=== PATIENT | female | born 1940 | race Caucasian/White ===

== ENCOUNTER 2024-03-09 13:57 | Outpatient (REF) | payer BC, SELFPAY ==
[2024-03-09 17:11] LABS: Hematocrit 34.9 % (37.0-47.0); Hemoglobin 10.9 g/dl (12.0-16.0); Mean Corpuscular HGB Conc 31.2 g/dl (31.0-35.0); Mean Corpuscular Hemoglobin 27.4 pg (27.0-33.0); Mean Corpuscular Volume 87.7 fL (80.0-98.0); Mean Platelet Volume 10.5 fL (9.4-12.3); Platelet Count 225 X10*3/uL (160-400); Red Blood Count 3.98 X10*6/uL (4.20-5.50); Red Cell Distribution Width 16.1 % (11.0-16.0)
[2024-03-09 17:20] LABS: INTERNATIONAL NORM RATIO 0.9 (0.9-1.1); Prothrombin Time 11.3 SEC (11.1-13.3)
[2024-03-09 17:52] LABS: Alanine Aminotransferase 21 U/L (0-31); Albumin Level 4.1 g/dL (3.5-5.0); Alkaline Phosphatase 88 U/L (39-117); Anion Gap 15 (12-20); Aspartate Amino Transferase 26 U/L (5-31); Bilirubin Total 0.5 mg/dL (0.0-1.0); Blood Urea Nitrogen 19 mg/dL (9-16); Calcium 9.5 mg/dL (8.4-10.2); Carbon Dioxide 25 mmol/L (22-29); Chloride 105 mmol/L (96-108); Estimated Glomerular Filt Rate > 60; Glucose Random 110 mg/dL (60-115); Iron 62 mcg/dL (30-160); Percent Iron Saturation 21 % (15-50); Potassium 3.9 mmol/L (3.3-5.1); Sodium 141 mmol/L (135-145); Total Iron Binding Capacity 297 mcg/dL (228-428); Total Protein 7.6 g/dL (6.5-8.0); Unsaturated Iron Binding 235 ug/dL
[2024-03-09 18:06] LABS: Ferritin 122 ng/mL (10-250); TSH reflex Free T4 0.16 uIU/mL (0.32-4.0); Vitamin D 25-OH Total 56.4 ng/mL (>30)
[2024-03-09 18:14] LABS: Folate 7.2 ng/mL (> or = 4.0); Vitamin B12 282 pg/mL (200-900)
[2024-03-09 18:37] LABS: Free T4 (Free Thyroxine) 0.98 ng/dL (0.71-1.85)
[2024-03-10 05:07] LABS: Hepatitis A Antibody IgG Nonreactive (Nonreactive); ~Hepatitis A Antibody IgG 0.42 S/CO (0.00-0.99)
[2024-03-10 05:09] LABS: HBS Num1 0.78 mIU/mL (0-7.99); HBc Num1 0.12 S/CO (0.00-0.79); HBsAGNum1 0.36 S/CO (0.00-0.99); Hepatitis B Core Antibody Nonreactive (Nonreactive); Hepatitis B Surface Antigen Negative (Negative); ~HepC Num1 0.43 S/CO (0.00-0.79); ~Hepatitis B Surface Antibody NONREACTIVE (Nonreactive); ~Hepatitis C Antibody Nonreactive (Nonreactive)
[2024-03-10 12:53] LABS: Alpha 1 Anti-trypsin 138 mg/dL (83-199); Ceruloplasmin 30 mg/dL (14-48)
[2024-03-10 14:28] LABS: Immunoglobulin A 247 mg/dL (70-320); Immunoglobulin G 1353 mg/dL (600-1540)
[2024-03-10 22:29] LABS: Transglutaminase IgA <1.0 U/mL
[2024-03-14 04:44] LABS: Smooth Muscle Antibody <20 U (<20)
[2024-03-15 06:54] LABS: Mitochondrial Antibodies NEGATIVE (NEGATIVE)
== END 2024-03-09 13:58 | disposition home or self-care (01) ==
LOC: HO.LAB 13:57
PROVIDERS: PCP Internal Medicine; Visit Provider Internal Medicine
DX: K76.0 Fatty (change of) liver, not elsewhere classified (principal)
CPT/HCPCS: 36415; 80053; 82103; 82306; 82390; 82607; 82728; 82746; 82784; 83540; 84439; 84443; 85027; 85610; 86015; 86364; 86381; 86704; 86706; 86708; 86803; 87340

== ENCOUNTER 2024-03-09 13:57 | Outpatient (AMB) | payer BC, SELFPAY ==
--- NOTE | 2024-03-09 14:12 | A.OFFVIS_ITS ---
Vital Signs 03/09/24 14:22 Height 5 ft 5 in Weight 187 lb BMI 31.1 BP 115/58 L Blood Pressure Location Lt brachial Position Sitting Pulse 80 Intake Visit Reasons: PETERS, Cirrhosis Intake Note: patient new consult for PETERS, Cirrhosis. Patient cc: nauseas, abdominal bloating, occasional abdominal pain, reflex, between diarrhea and constipation, difficulty swallowing. Solar Installer Required: No Accompanied by: Son Allergies No Known Allergies Allergy (Verified 03/09/24 14:12) HPI Comments Details: 84 y.o F with PMH of fatty liver/PETERS thought to be secondary to tamoxifen initially and now likely from metabolic factors who is here for a second opinion on PETERS/cirrhosis. Reports has had lonstanding hx of fatty liver. Used to be under care of Dr Morley and then later Ramón Alvarez. More recently has been diagnosed with possible cirrhosis for which she is here to seek another opinion. Used to be on a good regimented high protein diet but around 6-8 months ago reports increased fatigue, lack of energy and interest in most of her daily activities. Slipped off the diet. Had sudden weight gain of almost 20 lbs in 2 months leading to poor DM control and possibly cirrhosis on imaging. With this, now more recently has also developed fatigue and increased overall body aches with low energy. Reports fullness in abd mike after any oral intake in 5-10 mins. With nausea. No burping or belching. BMs fluctuate between formed and diarrhea. No blood in stool. On pantoprazole 40 once daily. Also on duloxetine 20 for fibromyalgia - recently increased to 40. 03/2023: EGD esophageal ulcers 10/2023: liver with nodular contour Father: liver cancer. - unk cause. [facility] Social History (Updated 03/09/24 @ 14:19 by Lian Bellamy) Alcohol intake: never Patient Tobacco Use Status: Former Tobacco user Review of Systems Const All systems reviewed & are unremarkable except as noted in HPI and below Physical Exam Vital Signs: Last Vital Signs Pulse 80 03/09/24 14:22 BP 115/58 L 03/09/24 14:22 BMI result Body Mass Index 31.1 Gen Appear: NAD, undernourished HEENT: No scleral icterus, no bitemporal wasting noted CVS: Regular S1/S2 no murmurs Abd: soft, nontender, nondistended, no shifting dullness to percussion, bowel sounds active Ext: No peripheral edema bilaterally Neuro: A/Ox3, no asterixis Derm: No spider angioma Assessment & Plan Assessment & Plan (1) Fatty liver: Code(s): K76.0 - Fatty (change of) liver, not elsewhere classified Category: Medical (2) Dyspepsia: Code(s): R10.13 - Epigastric pain Category: Medical Plan Reviewed with the patient that appears to have had possible depressive episode over the last 6 months leading to changes in her diet and activity levels, leading to sudden weight gain as well as worsening diabetes. These factor may have collectively worsened her fatty liver. Based on the data available so far, difficult to say whether has cirrhosis versus advanced fibrosis at this time. Regardless, will not change the ongoing management, which is to prevent further progression of liver disease, as well as timely screening for complications from portal hypertension. 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 Is already on PPI, which was not been helpful so far. Patient is undergoing titration of duloxetine through her PCP. Suspect this may help her dyspeptic symptoms as well. If does not have much response over the next 6 weeks, can consider nortriptyline or desipramine at nighttime. TCAs may also improve fibromyalgia symptoms. Follow-up in 3 months to review results as well as response to duloxetine vs swtich to TCA Orders: Orders Complete Blood Count no Diff 03/09/24 K76.0 - Fatty (change of) liver, not elsewhere classified Comprehensive Met. Panel 03/09/24 K76.0 - Fatty (change of) liver, not elsewhere classified Ferritin 03/09/24 K76.0 - Fatty (change of) liver, not elsewhere classified IRON PROFILE 03/09/24 K76.0 - Fatty (change of) liver, not elsewhere classified Immunoglobulin A 03/09/24 K76.0 - Fatty (change of) liver, not elsewhere classified Immunoglobulin G 03/09/24 K76.0 - Fatty (change of) liver, not elsewhere classified Transglutaminase IgA 03/09/24 K76.0 - Fatty (change of) liver, not elsewhere classified Alpha 1 Anti-trypsin 03/09/24 K76.0 - Fatty (change of) liver, not elsewhere classified Hepatitis B Surface Antibody 03/09/24 K76.0 - Fatty (change of) liver, not elsewhere classified Vitamin B12 and Folate 03/09/24 K76.0 - Fatty (change of) liver, not elsewhere classified Vitamin D 25-OH Total 03/09/24 K76.0 - Fatty (change of) liver, not elsewhere classified TSH reflex Free T4 03/09/24 K76.0 - Fatty (change of) liver, not elsewhere classified Ceruloplasmin 03/09/24 K76.0 - Fatty (change of) liver, not elsewhere classified Prothrombin Time INR 03/09/24 K76.0 - Fatty (change of) liver, not elsewhere classified Smooth Muscle Antibody 03/09/24 K76.0 - Fatty (change of) liver, not elsewhere classified Mitochondrial Antibody 03/09/24 K76.0 - Fatty (change of) liver, not elsewhere classified Hepatitis A IgG 03/09/24 K76.0 - Fatty (change of) liver, not elsewhere classified Hepatitis B Core Antibody 03/09/24 K76.0 - Fatty (change of) liver, not elsewhere classified Hepatitis B Surface Antigen 03/09/24 K76.0 - Fatty (change of) liver, not elsewhere classified Hepatitis C Antibody 03/09/24 K76.0 - Fatty (change of) liver, not elsewhere classified Coding Level of Care Code New Pt Level 5 (88414) Diagnoses Fatty liver K76.0 Dyspepsia R10.13
[2024-03-09 14:22] VITALS: BP 115/58; PULSE 80; BMI 31.1
== END 2024-03-09 15:10 | disposition home or self-care (01) ==
PROVIDERS: PCP Internal Medicine; Visit Provider Internal Medicine
DX: K76.0 Fatty (change of) liver, not elsewhere classified (principal); R10.13 Epigastric pain
CPT/HCPCS: 99204

== ENCOUNTER → 2024-04-21 08:58 | Outpatient (BNV) | payer BC, SELFPAY | PROVIDERS: PCP Internal Medicine; Referring Provider Internal Medicine; Visit Provider Internal Medicine Medical Oncology | DX: D64.9 Anemia, unspecified (principal); D51.9 Vitamin B12 deficiency anemia, unspecified | CPT/HCPCS: 99213 ==

== ENCOUNTER 2024-07-15 15:04 | Outpatient (AMB) | payer BC, SELFPAY ==
--- NOTE | 2024-07-15 15:15 | A.OFFVIS_ITS ---
Vital Signs 07/15/24 15:16 Height 5 ft 6 in Weight 183 lb BMI 29.5 BP 128/68 Blood Pressure Location Lt brachial Position Sitting Pulse 70 Intake Visit Reasons: PETERS Intake Note: Patient follow up for PETERS Patient cc: nauseas, abdominal pain with the touch with bloating, swallowing problems, between diarrhea and constipation. Poor appetite due the food does not have any taste for her. Store Custodian Required: No Accompanied by: Son Allergies atorvastatin Allergy (Verified 07/15/24 15:15) Rash Penicillins Allergy (Verified 07/15/24 15:15) Rash Sulfa (Sulfonamide Antibiotics) Allergy (Verified 07/15/24 15:15) Difficulty Breathing gabapentin Adverse Reaction (Verified 07/15/24 15:15) Unknown HPI Comments Details: 84 y.o F with PMH of fatty liver/PETERS thought to be secondary to tamoxifen initially and now likely from metabolic factors who is here for a second opinion on PETERS/cirrhosis. Reports has had lonstanding hx of fatty liver. Used to be under care of Dr Morley and then later Ramón Alvarez. More recently has been diagnosed with possible cirrhosis for which she is here to seek another opinion. Used to be on a good regimented high protein diet but around 6-8 months ago reports increased fatigue, lack of energy and interest in most of her daily activities. Slipped off the diet. Had sudden weight gain of almost 20 lbs in 2 months leading to poor DM control and possibly cirrhosis on imaging. With this, now more recently has also developed fatigue and increased overall body aches with low energy. Reports fullness in abd mike after any oral intake in 5-10 mins. With nausea. No burping or belching. BMs fluctuate between formed and diarrhea. No blood in stool. On pantoprazole 40 once daily. Also on duloxetine 20 for fibromyalgia - recently increased to 40. 03/2023: EGD esophageal ulcers 10/2023: liver with nodular contour Father: liver cancer. - unk cause. 07/15/24: Here for follow up. Labs reviewed, neg for iron overload, autoimmune hepatitis, celiac. Reports continued disinterest and fatigue even to do daily tasks. PHQ-9 score is 19 in office today. PCP visit pending. In terms of GI sx, continues to have mid epigastric pain and fullness sensation. Worse on sitting down. Better on standing. Barium swallow records available now and note made of lower esophageal narrowing with 13 mm tablet not able to go through. Pt already amauri for EGD in 4 weeks. Today, pt also reports worsening R sided pain and tenderness, unable to lay on that side at night. Swelling like sensation in that area. In terms of non-iron deficiency anemia, seeing Hematology and started on B12 and folate supplementation. 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 Arthritis Fibromyalgia Family History Father Liver cancer Sister Skin cancer Social History Household Members: Spouse Alcohol intake: never Patient Tobacco Use Status: Never used Tobacco service: No Current occupational status: retired Review of Systems Const All systems reviewed & are unremarkable except as noted in HPI and below Physical Exam Vital Signs: Last Vital Signs Pulse 70 07/15/24 15:16 BP 128/68 07/15/24 15:16 BMI result Body Mass Index 29.5 No apparent distress Nonicteric Abdomen soft, mildly distended, diffuse tenderness mike RUQ Alert and oriented x3, normal gait Assessment & Plan Assessment & Plan (1) Fatty liver: Code(s): K76.0 - Fatty (change of) liver, not elsewhere classified Category: Medical (2) Epigastric pain: Code(s): R10.13 - Epigastric pain Category: Medical (3) Early satiety: Code(s): R68.81 - Early satiety Category: Medical (4) Esophageal stricture: Code(s): K22.2 - Esophageal obstruction Category: Medical (5) Postprandial RUQ pain: Code(s): R10.11 - Right upper quadrant pain Category: Medical Plan 1. Epigastric pain, early satiety, bloating Stricture also noted on barium swallow but pt without significant dysphagia bu rden. Ddx include esophagitis, gastritis, PUD, early gastric ca. Pt already booked for endoscopic evaluation in 4 weeks. In the meantime, would recommend empiric PPI. Pt reports prior intolerance to a PPI but does not recall name. Encouraged to call office if experiences side effects. Plan: -Start omeprazole 20 once daily -EGD already booked -Unable to rule out overlap of DGBI and pt again encouraged to discuss trial of TCA with PCP (currently on duloxetine) 2. RUQ pain Worse since she was seen last time. LFTs reviewed from last month and remain <3UNL. Plan: - US Abd Follow up after EGD Orders: Orders US abdomen complete 07/15/24 K76.0 - Fatty (change of) liver, not elsewhere classified Medications: New omeprazole 20 mg PO DAILY 90 days 90 caps 0RF Coding Level of Care Code Est Pt Level 4 (83098) Diagnoses Fatty liver K76.0 Epigastric pain R10.13 Early satiety R68.81 Esophageal stricture K22.2 Postprandial RUQ pain R10.11
[2024-07-15 15:16] VITALS: BP 128/68; PULSE 70; BMI 29.5
== END 2024-07-15 16:27 | disposition home or self-care (01) ==
PROVIDERS: PCP Internal Medicine; Visit Provider Internal Medicine
DX: K76.0 Fatty (change of) liver, not elsewhere classified (principal); R10.13 Epigastric pain; R68.81 Early satiety; K22.2 Esophageal obstruction; R10.11 Right upper quadrant pain
CPT/HCPCS: 99214

== ENCOUNTER 2024-08-09 09:03 | Outpatient (REF) | payer MEDICARE, SELFPAY ==
--- NOTE | ~2024-08-09 | US_ITS ---
EXAMINATION: US ABDOMEN COMPLETE CLINICAL INFORMATION: Fatty change of liver, not elsewhere specified. COMPARISON: None available. TECHNIQUE: Real-time imaging of the abdominal viscera. FINDINGS: PANCREAS: Visualized portions are unremarkable. ABDOMINAL AORTA: The proximal, mid, and distal segments are normal in caliber. INFERIOR VENA CAVA: Visualized portions are normal. LIVER: The liver is normal in size. The liver contour is normal. There is mildly diffuse increased liver parenchymal echogenicity, consistent with hepatic steatosis. There is a tiny oval hyperechoic mass in the right lobe measuring 1.1 x 1.3 x 1.3 cm, statistically most likely an incidental hemangioma. No suspicious focal hepatic lesion. There is no intrahepatic biliary duct dilatation seen. Normal hepatopedal portal flow. GALLBLADDER: Surgically absent. COMMON BILE DUCT: Normal in caliber measuring 0.4 cm in diameter. RIGHT KIDNEY: Mild fullness of the collecting system, nonspecific. No gross hydronephrosis. No renal calculi or focal parenchymal lesions. The kidney measures 10.9 cm in maximum dimension. LEFT KIDNEY: No hydronephrosis. No renal calculi or focal parenchymal lesions. The kidney measures 11.6 cm in maximum dimension. SPLEEN: The spleen measures 10.2 cm in maximum dimension. FREE FLUID: None. US/US abdomen complete IMPRESSION: 1. Mild diffuse fatty infiltration of the liver. No suspicious liver lesion. Incidental right hepatic lobe oval hemangioma suspected measuring 1.3 cm. 2. Cholecystectomy. No biliary dilatation. 3. Minimal fullness of the right renal collecting system without gross hydronephrosis. This is of doubtful clinical significance. No calculi or mass. 4. Remainder of the exam is normal. Electronically signed by: Levy Norris MD 08/10/2024 09:00 AM [facility]
== END 2024-08-09 09:04 | disposition home or self-care (01) ==
LOC: HO.US 09:03
PROVIDERS: PCP Internal Medicine; Visit Provider Internal Medicine
DX: K76.0 Fatty (change of) liver, not elsewhere classified (principal)
CPT/HCPCS: 76700

== ENCOUNTER → 2024-08-09 09:05 | Outpatient (BNV) | payer MEDICARE, SELFPAY | PROVIDERS: PCP Internal Medicine; Visit Provider Radiology Diagnostic Radiology | DX: K76.0 Fatty (change of) liver, not elsewhere classified (principal) | CPT/HCPCS: 76700 ==

== ENCOUNTER 2024-08-23 06:41 | Day surgery (SDC) | payer MEDICARE, SELFPAY ==
[2024-08-19 13:11] VITALS: BMI 29.5
--- NOTE | 2024-08-22 09:52 | HO.ANESPROP2 ---
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 If so, by whom?: No Are you DNR?: No Advance Directives: No Advance Directives Information Provided: Yes Recently lost weight without trying: No Nutrition Risks: No Nutritional Risk service: No Current occupational status: retired Meds Allergies Allergy/AdvReac Type Severity Reaction Status Date / Time atorvastatin Allergy Rash Verified 07/15/24 15:15 Penicillins Allergy Rash Verified 07/15/24 15:15 Sulfa (Sulfonamide Allergy Difficulty Verified 07/15/24 15:15 Antibiotics) Breathing gabapentin AdvReac Severe Unknown Verified 08/23/24 08:05 indomethacin AdvReac Unknown Verified 08/23/24 08:06 levofloxacin [From Levaquin] AdvReac Unknown Verified 08/23/24 08:04 Home Medications ?Medication ?Instructions ?Recorded ?Confirmed ?Last Taken ?Type allopurinol 100 mg tablet 100 mg PO DAILY 03/09/24 08/19/24 Unknown History atenolol 25 mg tablet 25 mg PO DAILY 03/09/24 08/19/24 Unknown History duloxetine 20 mg capsule,delayed 20 mg PO BID 03/09/24 08/19/24 Unknown History release levothyroxine 88 mcg capsule 88 mcg PO DAILY 03/09/24 08/19/24 Unknown History liothyronine 5 mcg tablet 5 mcg PO DAILY 03/09/24 08/19/24 Unknown History lisinopril 20 1 tab PO DAILY 03/09/24 08/19/24 Unknown History mg-hydrochlorothiazide 25 mg tablet metformin 500 mg tablet 500 mg PO DAILY 03/09/24 08/19/24 Unknown History rosuvastatin 5 mg tablet 5 mg PO DAILY 03/09/24 08/19/24 Unknown History zolpidem 5 mg sublingual tablet 5 mg sublingual BEDTIME 03/09/24 08/19/24 Unknown History ezetimibe 10 mg tablet 10 mg PO DAILY 04/21/24 08/19/24 Unknown History furosemide 20 mg tablet 20 mg PO DAILY swelling 04/21/24 08/19/24 Unknown History Exam Height,Weight and Vital Signs: Height 5 ft 6 in Weight 83.007 kg Pertinent Lab Results Pertinent Lab Results: Laboratory Tests 06/16/24 10:24 WBC 6.2 Hgb 11.4 L Hct 35.1 L Plt Count 232 Sodium 137 Potassium 4.0 Chloride 102 Carbon Dioxide 29 BUN 23 H Creatinine 0.88 Assessment and Plan Assessment Anesthesia Assessment: Chart Reviewed Documented by User: Cathy Corley MD 08/23/24 08:08 PMFSH Active Problems Active Problems: All Active Problems Postprandial RUQ pain (Acute) Esophageal stricture (Acute) Early satiety (Acute) Epigastric pain (Acute) Normochromic normocytic anemia (Acute) Normocytic anemia, not due to blood loss (Acute) Dyspepsia (Acute) Fatty liver (Acute) H/o breast cancer . 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 PONV) Social History Social History Household Members: Spouse Are you a primary respiratory care program director to a significant other at home: No Do you presently have visiting nurse or other home services: No Alcohol intake: never Patient Tobacco Use Status: Never used Tobacco Have you been hit, kicked, punched, or otherwise hurt by someone within the past year? If so, by whom?: No Are you DNR?: No Advance Directives: No Advance Directives Information Provided: Yes Recently lost weight without trying: No Nutrition Risks: No Nutritional Risk service: No Current occupational status: retired [employer] Allergies Allergy/AdvReac Type Severity Reaction Status Date / Time atorvastatin Allergy Rash Verified 07/15/24 15:15 Penicillins Allergy Rash Verified 07/15/24 15:15 Sulfa (Sulfonamide Allergy Difficulty Verified 07/15/24 15:15 Antibiotics) Breathing gabapentin AdvReac Severe Unknown Verified 08/23/24 08:05 indomethacin AdvReac Unknown Verified 08/23/24 08:06 levofloxacin [From Levaquin] AdvReac Unknown Verified 08/23/24 08:04 Home Medications ?Medication ?Instructions ?Recorded ?Confirmed ?Last Taken ?Type allopurinol 100 mg tablet 100 mg PO DAILY 03/09/24 08/19/24 Unknown History atenolol 25 mg tablet 25 mg PO DAILY 03/09/24 08/19/24 Unknown History duloxetine 20 mg capsule,delayed 20 mg PO BID 03/09/24 08/19/24 Unknown History release levothyroxine 88 mcg capsule 88 mcg PO DAILY 03/09/24 08/19/24 Unknown History liothyronine 5 mcg tablet 5 mcg PO DAILY 03/09/24 08/19/24 Unknown History lisinopril 20 1 tab PO DAILY 03/09/24 08/19/24 Unknown History mg-hydrochlorothiazide 25 mg tablet metformin 500 mg tablet 500 mg PO DAILY 03/09/24 08/19/24 Unknown History rosuvastatin 5 mg tablet 5 mg PO DAILY 03/09/24 08/19/24 Unknown History zolpidem 5 mg sublingual tablet 5 mg sublingual BEDTIME 03/09/24 08/19/24 Unknown History ezetimibe 10 mg tablet 10 mg PO DAILY 04/21/24 08/19/24 Unknown History furosemide 20 mg tablet 20 mg PO DAILY swelling 04/21/24 08/19/24 Unknown History Exam Height,Weight and Vital Signs: Height 5 ft 6 in Weight 83.007 kg Vital Signs Temp Pulse Resp BP Pulse Ox O2 Del Method 08/23/24 07:50 98.0 F 71 18 146/72 H 97 Room Air Pertinent Lab Results Pertinent Lab Results: Laboratory Tests 06/16/24 10:24 WBC 6.2 Hgb 11.4 L Hct 35.1 L Plt Count 232 Sodium 137 Potassium 4.0 Chloride 102 Carbon Dioxide 29 BUN 23 H Creatinine 0.88 Lab Results 08/23/24 Range/Units 07:46 POC Glucose 138 H (60-115) mg/dL Airway Mallampati Class: III TM Dist: >3cm Neck ROM: Full Partial: Upper Loose/Missing/Broken Teeth: Yes (Top front tooth left broken. Many missing teeth. Denies loose teeth) Heart: RRR + murmur Lungs: CTAB Assessment and Plan Assessment Anesthesia Assessment: Anesthesia Plan Discussed and Chart Reviewed Final Anesthetic Review Family History of Problems with Anesthesia: No History of Problems with Anesthesia: Yes (? PONV) NPO: Yes ASA Class: III Final Preanesthetic Review: No Changes in Pt Med Stat, Meds/Allgs Chart Reviewed, Consent Obtained/Reviewed and Anes Risks/Benef Reviewed Patient Risk: Intermediate Procedure Risk: Low Assessment/Block/Sedation in SS: Assess/Block/Sedation-SS Anesthetic Plan Anesthetic Plan: TIVA Disposition: Standard PACU
[2024-08-23] MEDS: Lactated Ringers 1,000 ML 100 ML IVCONT (07:40)
[2024-08-23 07:50] VITALS: BP 146/72; PULSE 71; RESP 18; TEMP 36.7; O2SAT 97
[2024-08-23 07:54] LABS: Glucose, Whole Blood 138 mg/dL (60-115)
--- NOTE | 2024-08-23 08:20 | MHC.SHP ---
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 Arthritis Fibromyalgia Family History Father Liver cancer Sister Skin cancer Present Medications: see Short Stay Collaborative assessment Allergies: Allergies Allergy/AdvReac Type Severity Reaction Status Date / Time atorvastatin Allergy Rash Verified 07/15/24 15:15 Penicillins Allergy Rash Verified 07/15/24 15:15 Sulfa (Sulfonamide Allergy Difficulty Verified 07/15/24 15:15 Antibiotics) Breathing gabapentin AdvReac Severe Unknown Verified 08/23/24 08:05 indomethacin AdvReac Unknown Verified 08/23/24 08:06 levofloxacin [From Levaquin] AdvReac Unknown Verified 08/23/24 08:04 Review of Systems Review of Systems Comment: Ten point ROS negative Exam Exam Comment: Gen appear: No acute distress HEENT: no icterus Chest: No overt resp distress Abd: soft, nontender, nondistended Psych: Stable affect, answering questions appropriately Neuro: A/Ox3 noted to move all extremities spontaneously Ext: no peripheral edema Plan Diagnosis/Plan: Unchanged I have reviewed the history and physical and performed a pertinent physical examination on my patient. No changes have occurred unless specified. Time Spent With Patient Time: Total time managing care of this patient today ____ minutes.
[2024-08-23 11:18] VITALS: BP 123/67; PULSE 67; RESP 18; TEMP 37.3; O2SAT 94
--- NOTE | 2024-08-23 11:25 | P.OP_ITS ---
Operative Note Operative Note Date of Service: 08/23/24 Narrative: Procedure: Esophagogastroduodenoscopy Endoscopist: Rand Beverly MD Indication: Epigastric pain Anesthesia Provider: Sandra Jovel CRNA Anesthesia Type: MAC ?? EGD Procedure:?? The procedure, indications, preparation and potential complications were reviewed with the patient, who indicated understanding and gave written informed consent to proceed. A physical exam was performed. The endoscope was introduced through the mouth, and advanced to the second part of duodenum. The mucosa was carefully examined on slow withdrawal of the endoscope. The patient tolerated the procedure well. There were no immediate complications.? ? EGD Findings:? * Esophagus:? Normal mucosa noted in the entire esophagus. No obvious narrowing was noted in the esophagus. The Z line was at 36 cm and displaced by a small hiatal hernia with the diaphragmatic pinch at 38 cm.. Middle and lower esophagus forceps biopsies were obtained to rule out eosinophilic esophagitis. * Stomach:? Erythema and erosions noted in the body and antrum. Retroflexion wa s performed in the cardia showing Hill grade 1 hiatal hernia. Cold forceps biopsies were taken as per Janine protocol for mapping. * Duodenum:?Diffuse erythema, ulceration erosion noted throughout duodenum to the extent examined. Cold forceps biopsies were taken for histology. ? EGD Impressions:? * Normal esophagus (biopsy) * Hiatal hernia * Gastritis (biopsy) * Duodenitis (biopsy) ?? Recommendations:?? * Follow biopsy results. Our office will call or send a letter with results within 7-10 days. * Switch to Rabeprazole 20 mg * If H pylori +, patient will be prescribed eradication therapy followed by test of cure. * Avoid NSAIDs. Above has been reviewed with the patient.
[2024-08-23 11:33] VITALS: BP 144/70; PULSE 66; RESP 18; TEMP 36.6; O2SAT 95
[2024-08-23 12:20] LABS: Alanine Aminotransferase 33 U/L (0-31); Alkaline Phosphatase 82 U/L (39-117); Aspartate Amino Transferase 44 U/L (5-31); Bilirubin Direct 0.2 mg/dL (0.0-0.5); Bilirubin Total 0.5 mg/dL (0.0-1.0); Total Protein 7.5 g/dL (6.5-8.0)
[2024-08-26 06:44] LABS: Gastrin 16 pg/mL (<=100)
== END 2024-08-23 12:06 | disposition home or self-care (01) ==
PROVIDERS: PCP Internal Medicine; Visit Provider Internal Medicine
PROC: 0DJ08ZZ Inspection of Upper Intestinal Tract, Via Natural or Artificial Opening Endoscopic (ICD-10-PCS; CPT 43235; principal; 2024-08-23 09:30)
DX: R10.13 Epigastric pain (principal); K29.90 Gastroduodenitis, unspecified, without bleeding; K21.9 Gastro-esophageal reflux disease without esophagitis; K75.81 Nonalcoholic steatohepatitis (NASH); K22.2 Esophageal obstruction; K44.9 Diaphragmatic hernia without obstruction or gangrene; R68.81 Early satiety; I10 Essential (primary) hypertension; E11.9 Type 2 diabetes mellitus without complications; E78.00 Pure hypercholesterolemia, unspecified; E07.9 Disorder of thyroid, unspecified; M79.7 Fibromyalgia; M10.9 Gout, unspecified; R53.83 Other fatigue; Z79.899 Other long term (current) drug therapy; Z88.0 Allergy status to penicillin; Z88.2 Allergy status to sulfonamides; Z88.8 Allergy status to other drugs, medicaments and biological substances
CPT/HCPCS: 43239; 36415; 80076; 82941; 82947; 88305; 88313; 88342; J1100; J2003; J2405; J2704; J3010

== ENCOUNTER → 2024-08-23 06:41 | Outpatient (BNV) | payer MEDICARE, SELFPAY | PROVIDERS: PCP Internal Medicine; Visit Provider Internal Medicine | DX: K29.70 Gastritis, unspecified, without bleeding (principal); K29.80 Duodenitis without bleeding | CPT/HCPCS: 43239 ==

== ENCOUNTER 2024-09-07 09:36 | Outpatient (AMB) | payer BC, SELFPAY ==
--- NOTE | 2024-09-07 09:37 | MHC.OFFVIS ---
Vital Signs 09/07/24 09:38 Height 5 ft 6 in Weight 182 lb 15.739 oz BMI 29.5 BP 145/67 H Blood Pressure Location Lt brachial Position Sitting Pulse 69 Intake Visit Reasons: S/P EGD w/ mapping biopsy; Dr. Beverly Intake Note: Kayy presents in the office as a follow up EGD w/ Mapping Biopsy. CC: She states that she is having trouble swallowing and lots of concerns. Parking Patroller Required: No Allergies atorvastatin Allergy (Verified 09/07/24 09:41) Rash Penicillins Allergy (Verified 09/07/24 09:41) Rash Sulfa (Sulfonamide Antibiotics) Allergy (Verified 09/07/24 09:41) Difficulty Breathing gabapentin Adverse Reaction (Severe, Verified 09/07/24 09:41) Unknown indomethacin Adverse Reaction (Verified 09/07/24 09:41) Unknown levofloxacin [From Levaquin] Adverse Reaction (Verified 09/07/24 09:41) Unknown HPI Comments Details: 84 y.o F with PMH of fatty liver/PETERS thought to be secondary to tamoxifen initially and now likely from metabolic factors who is here for a second opinion on PETERS/cirrhosis. Reports has had lonstanding hx of fatty liver. Used to be under care of Dr Morley and then later Ramón Alvarez. More recently has been diagnosed with possible cirrhosis for which she is here to seek another opinion. Used to be on a good regimented high protein diet but around 6-8 months ago reports increased fatigue, lack of energy and interest in most of her daily activities. Slipped off the diet. Had sudden weight gain of almost 20 lbs in 2 months leading to poor DM control and possibly cirrhosis on imaging. With this, now more recently has also developed fatigue and increased overall body aches with low energy. Reports fullness in abd mike after any oral intake in 5-10 mins. With nausea. No burping or belching. BMs fluctuate between formed and diarrhea. No blood in stool. On pantoprazole 40 once daily. Also on duloxetine 20 for fibromyalgia - recently increased to 40. 03/2023: EGD esophageal ulcers 10/2023: liver with nodular contour Father: liver cancer. - unk cause. 07/15/24: Here for follow up. Labs reviewed, neg for iron overload, autoimmune hepatitis, celiac. Reports continued disinterest and fatigue even to do daily tasks. PHQ-9 score is 19 in office today. PCP visit pending. In terms of GI sx, continues to have mid epigastric pain and fullness sensation. Worse on sitting down. Better on standing. Barium swallow records available now and note made of lower esophageal narrowing with 13 mm tablet not able to go through. Pt already amauri for EGD in 4 weeks. Today, pt also reports worsening R sided pain and tenderness, unable to lay on that side at night. Swelling like sensation in that area. In terms of non-iron deficiency anemia, seeing Hematology and started on B12 and folate supplementation. EGD 08/23/24: Normal esophagus (biopsy) Hiatal hernia Gastritis (biopsy) Duodenitis (biopsy)?? A. Duodenum, biopsy: Duodenal mucosa within normal limits. B. Stomach, antrum lesser curvature, biopsy: Antral-type mucosa with mild chronic inactive inflammation; no Helicobacter organisms seen. C. Stomach, antrum greater curvature, biopsy: Antral-type mucosa with mild chronic inactive inflammation; no Helicobacter organisms seen. D. Stomach, incisura, biopsy: Oxyntic mucosa with mild chronic inactive inflammation; no Helicobacter organisms seen. E. Stomach, body lesser curvature, biopsy: Oxyntic mucosa with mild chronic inactive inflammation; no Helicobacter organisms seen. F. Stomach, body greater curvature, biopsy: Oxyntic mucosa within normal limits; no Helicobacter organisms seen. G. Esophagus, lower, biopsy: Active esophagitis (maximum eosinophil count 2 per high powered field). H. Esophagus, middle, biopsy: Active esophagitis (maximum eosinophil count 5 per high powered field) 09/07/24: Here for post EGD follow up. Reports persistent abd pain and lack of appetite. Bx results reviewed with the pt. Reassured that no dysplasia noted in stomach bx. In addition no signs of portal HTN noted such as PHG or varices. Taking rabeprazole 20 but causing more nausea and vomiting by the late afternoon. Wanting to go back to omeprazole. 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 Arthritis Fibromyalgia Surgical History History of liver biopsy Hx of hysterectomy Hx of cholecystectomy Hx of colonoscopy History of lumpectomy of left breast History of esophagogastroduodenoscopy (EGD) Family History Father Liver cancer Sister Skin cancer Social History Household Members: Spouse Are you a primary direct care staffer to a significant other at home: No Do you presently have visiting nurse or other home services: No Alcohol intake: never Patient Tobacco Use Status: Never used Tobacco service: No Current occupational status: retired Review of Systems Const All systems reviewed & are unremarkable except as noted in HPI and below Physical Exam Vital Signs: Last Vital Signs Pulse 69 09/07/24 09:38 BP 145/67 H 09/07/24 09:38 BMI result Body Mass Index 29.5 No apparent distress Nonicteric Abdomen soft, nondistended Alert and oriented x3, normal gait Assessment & Plan Assessment & Plan (1) Gastritis and duodenitis: Code(s): K29.90 - Gastroduodenitis, unspecified, without bleeding Category: Medical (2) Postprandial RUQ pain: Code(s): R10.11 - Right upper quadrant pain Category: Medical (3) Epigastric pain: Code(s): R10.13 - Epigastric pain Category: Medical (4) Early satiety: Code(s): R68.81 - Early satiety Category: Medical Plan # Gastritis: # Dysphagia: Gastritis without H pylori. Having side effects from rabeprazole. OK to switch back to omeprazole but would recommend taking 20 BID. In terms of dysphagia, no obv stricture noted. ? EIM. Plan: - OMeprazole 20 BID - If having persistent dysphagia will repeat EGD with empiric dilation vs refer for HREM. #Dyspepsia Sx consistent with post prandial distress. Reviewed neuromodulation. While TCAs with more robust data, will favor mirtazapine for added benefit of increased appetite. Plan: - Mirtazapine 15 mg once daily at bedtime. Pt advised to start with 7.5 x 1 week and then increase to 15. - Avoid ambien for now. Can resume if has persistent insomnia despite being on mirtazapine for >2-3 weeks. Follow up 3 months Medications: New mirtazapine take 0.5 pill at bedtime for a week and then increase to 1 pill at bedtime. 15 mg PO BEDTIME 30 days 30 tabs 0RF Discontinued rabeprazole Discontinued Reason: Doctor's Order 20 mg PO DAILY 90 tabs 0RF K29.90 - Gastroduodenitis, unspecified, without bleeding Coding Level of Care Code Est Pt Level 4 (05423) Diagnoses Gastritis and duodenitis K29.90 Postprandial RUQ pain R10.11 Epigastric pain R10.13 Early satiety R68.81
[2024-09-07 09:38] VITALS: BP 145/67; PULSE 69; BMI 29.5
--- OUTSIDE RECORDS SUMMARY | 2024-09-07 10:51 | XMS_ITS | Encounter Summary ---
Author Organization [facility] Address [address] [place] [address] Care Team Providers Care First Helper Name Role Phone Alba Anguiano MD Primary Care Provider [phone] Encounter Details Date Type Department Care Team (Late st Contact Info) Description 09/02/2024 Telephone Gastroenterology - [place] [address] [place] [id number] Ramón Alvarez PA [address] [place] [address] Social History Tobacco Use Types Packs/Day Years Used Date Smoking Tobacco: Former Smokeless Tobacco: Never Alcohol Use Standard Drinks/Week Comments Never 0 (1 standard drink = 0.6 oz pur e alcohol) Comments Unknown Sex and Gender Information Value Date Recorded Sex Assigned at Not on file Legal Sex Female 8:06 AM EST Gender Identity Not on file Sexual Orientation Not on file documented as of this encounter Progress Notes * SARAHY Hardy - 09/02/2024 4:39 PM EST I have received an ultrasound elastography of liver report from [facility]. This study was doneon February 06, 2024 for reasons of cirrhosis. The impression was suggestive of compensated advanced chronic liver disease but need further testing for confirmation. Additional comment: In the setting of elevated liver functions vascular congestion and infiltrative liver disease the stage of liver fibrosis may be overestimated. Echogenic liver likely representing fatty liver but no suspicious lesions. Report to be scanned in the patient's chart the patient is aware that she needs to have repeated studies every 6 months due to her liver disease. documented in this encounter Plan of Treatment Not on file documented as of this encounter Visit Diagnoses Not on filedocumented in this encounter Care Teams First Helper Relationship Specialty Start Date End Date Alba Anguiano MD PCP - General Internal Medicine 11/05/21 documented as of this encounter
--- OUTSIDE RECORDS SUMMARY | 2024-09-07 10:51 | XMS_ITS | Continuity of Care Document ---
Author Organization [facility] Address [address] [place] [address]- Care Team Providers Care Press Tender Star Signal Name Role Phone Annmarie GERARD, Alba Bazzi Primary Care Physician Encounter [facility] [place] Date(s): 08/17/24 - 08/24/24 [facility] [address] [place], [place] [address] Encounter Diagnosis Dysuria(Discharge Diagnosis) - 08/17/24 Chills(Discharge Diagnosis) - 08/17/24 Back pain(Discharge Diagnosis) - 08/17/24 Attending Physician: Not on Staff, Attending MD Referring Physician: Jessenia Walton MD Encounter Type: Office Visit Allergies, Adverse Reactions, Alerts Substance Criticality Severity Reaction Reaction Severity Status erythromycin Active sulfADIAZINE swelling Active gabapentin DEPRESSION Active Levaquin Active Mushrooms Active penicillins rash Active Indocin dizziness nausea Active Lipitor rash Active Crestor Active Immunizations Given and Recorded Vaccine Date Status Refusal Reason nirsevimab (cvx 306) 05/06/23 Recorded Influenza Virus Vaccine (oldterm) 05/06/23 Recorde d Influenza Virus Vaccine (oldterm) 05/07/20 Recorde d Influenza Virus Vaccine (oldterm) 04/27/19 Recorde d pneumococcal 13-valent vaccine 03/16/23 Recorded pneumococcal 13-valent vaccine 03/27/20 Recorded pneumococcal 20-valent conjugate vaccine 03/16/23 Recorded influenza virus vaccine, inactivated 04/09/22 Best rded influenza virus vaccine, inactivated 04/15/21 Best rded influenza virus vaccine, inactivated 03/30/18 Best rded influenza virus vaccine, inactivated 04/11/17 Best rded influenza virus vaccine, inactivated 04/11/15 Best rded SARS-CoV-2 mRNA (vnamcqj-uawo-barea) vax 1 11/19/21 Given SARS-CoV-2 (COVID-19) mRNA BNT-162b2 vac 07/17/21 Given SARS-CoV-2 (COVID-19) mRNA BNT-162b2 vac 09/22/20 Recorded SARS-CoV-2 (COVID-19) mRNA BNT-162b2 vac 08/31/20 Recorded tetanus/diphtheria/pertussis, acel(Tdap) 03/27/20 Recorded pneumococcal 23-valent vaccine 07/24/09 Recorded 1Result Comment: [facility] [id number] Medications allopurinol 100 mg oral tablet 2, tablet, By Mouth, Daily, # 180 tablet, Refills 3, Tot. Refills 3, Maintenance, 12/28/24 11:34:00 AM EDT, Route to Pharmacy Electronically, [facility] #[id number], 163, cm, 11/16/23 9:25:00 EDT, Height Start Date: 12/28/24 Stop Date: 12/23/25 Status: Ordered Quantity: 180.0 Unit: tablet Repeat number: 4 atenolol 25 mg oral tablet 1, tablet, By Mouth, Daily, # 90 tablet, Refills 1, Tot. Refills 1, Maintenance, 07/04/24 10:34:00 AM EST, Route to Pharmacy Electronically, [facility] #[id number], 163, cm, 03/17/24 15:42:00 EDT,Height Start Date: 07/04/24 Status: Ordered Quantity: 90.0 Unit: tablet Repeat number: 2 B Complex 100 0 Refills, Maintenance, 08/17/24 1:01:00 PM EST, Partial fill upon patient request if the prescription is for a schedule II opioid drug. Start Date: 08/17/24 Status: Ordered Repeat number: 1 cinnamon = 1,000 mg, By Mouth, 0 Refills, Maintenance, 08/17/24 1:01:00 PM EST, Partial fill upon patient request if the prescription is for a schedule II opioid drug. Start Date: 08/17/24 Status: Ordered Repeat number: 1 Co Q-10 = 100 mg, By Mouth, Daily, 0 Refills, Maintenance, 09/08/17 9:48:27 AM EST Start Date: 09/08/17 Status: Ordered Repeat number: 1 Cranberry 0 Refills, Maintenance, 05/24/21 12:00:00 PM EDT, Partial fill upon patient request if the prescription is for a schedule II opioid drug. Start Date: 05/24/21 Status: Ordered Repeat number: 1 Crestor 5 mg oral tablet 1 tablet = 5 mg, By Mouth, Daily, 0 Refills, Maintenance, 09/23/21 7:53:00 AM EST, Partial fill uponpatient request if the prescription is for a schedule II opioid drug. Start Date: 09/23/21 Status: Ordered Repeat number: 1 Curcumin 750 mg Curcumin 750 mg, 2 times a day, Refills 0, Maintenance, 09/08/17 9:50:32 AM EST, Compound Start Date: 09/08/17 Status: Ordered Repeat number: 1 duloxetine 20 mg oral enteric coated capsule 2 capsule = 40 mg, By Mouth, Daily, # 180 capsule, 1 Refills, Maintenance, 05/18/24 5:16:00 AM EDT,[facility] #[id number], new instructions, 163, cm, 03/17/24 15:42:00 EDT, Height Start Date: 05/18/24 Status: Ordered Quantity: 180.0 Unit: capsule Repeat number: 2 ezetimibe 10 mg oral tablet TAKE 1 TABLET BY MOUTH DAILY Start Date: 03/17/24 Status: Ordered Repeat number: 1 Freestyle Lancets Maintenance, 08/17/16 10:16:19 AM EST, Compound Start Date: 08/17/16 Status: Ordered Repeat number: 1 furosemide 20 mg oral tablet 20 mg, 1, tablet, By Mouth, Daily, NEEDED FOR leg SWELLING, # 90 tablet, Refills 0, Tot. Refills0, Maintenance, 02/22/24 8:41:00 AM EDT, Route to Pharmacy Electronically, [facility] #[id number], Partial fill upon patient request if the prescription is for a schedule II opioid drug., 163, cm,02/22/24 7:49:00 EDT, Height Start Date: 02/22/24 Status: Ordered Quantity: 90.0 Unit: tablet Repeat number: 1 levothyroxine 0.088 mg oral tablet 1 tablet = 88 mcg, By Mouth, Daily, # 90 tablet, 3 Refills, Maintenance, 11/09/23 3:21:00 PM EDT, [facility] #[id number], 163, cm, 11/09/23 14:38:00 EDT, Height Start Date: 11/09/23 Status: Ordered Quantity: 90.0 Unit: tablet Repeat number: 4 liothyronine 5 mcg oral tablet 1 tablet = 5 mcg, By Mouth, Daily, # 90 tablet, 3 Refills, Maintenance, 11/09/23 3:21:00 PM EDT, Tablet, [facility] #[id number], 163, cm, 11/09/23 14:38:00 EDT, Height Start Date: 11/09/23 Status: Ordered Quantity: 90.0 Unit: tablet Repeat number: 4 MetFORMIN (Eqv-Glucophage XR) 500 mg oral tablet, extended release 1 tablet = 500 mg, By Mouth, 2 times a day, # 180 tablet, 3 Refills, 11/09/23 3:18:00 PM EDT, [facility] #[id number], new instructions, 163, cm, 11/09/23 14:38:00 EDT, Height Start Date: 11/09/23 Status: Ordered Quantity: 180.0 Unit: tablet Repeat number: 4 Neuro-Mag Neuro-Mag, Refills 0, Maintenance, 08/21/16 10:15:24 AM EST, Compound Start Date: 08/21/16 Status: Ordered Repeat number: 1 Nexium 40 mg oral enteric coated capsule 1 capsule = 40 mg, By Mouth, Daily, # 90 capsule, 0 Refills, Maintenance, 04/13/24 5:51:00 PM EDT, EC Capsule, [facility] #[id number], Partial fill upon patient request if the prescription is for a schedule II opioid drug., 163, cm, 03/17/24 15:42:00 EDT, Height Start Date: 04/13/24 Status: Ordered Quantity: 90.0 Unit: capsule Repeat number: 1 pantoprazole 40 mg oral delayed release tablet 1 tablet = 40 mg, By Mouth, Daily, take on empty stomach, # 90 tablet, 1 Refills, Maintenance, 11/10/23 7:59:00 AM EDT, EC Tablet, 163, cm, 11/09/23 14:38:00 EDT, Height Start Date: 11/10/23 Status: Ordered Quantity: 90.0 Unit: tablet Repeat number: 2 Vitamin D3 1000 intl units oral capsule 1 capsule = 1,000 International_Units, By Mouth, Daily, 0 Refills, Maintenance, 08/17/16 10:17:19 AMEST Start Date: 08/17/16 Status: Ordered Repeat number: 1 Zestoretic 25 mg-20 mg oral tablet 1 tablet, By Mouth, Daily, # 90 tablet, 0 Refills, Maintenance, 08/16/19 9:10:00 AM EST, Tablet Start Date: 08/16/19 Status: Ordered Quantity: 90.0 Unit: tablet Repeat number: 1 zolpidem 5 mg oral tablet See Instructions, PRN for sleep, 1- 2 tablet By Mouth Daily at bedtime, # 90 tablet, 1 Refills, Maintenance, 02/22/24 8:41:00 AM EDT, Tablet, [facility] #[id number], 163, cm, 02/22/24 7:49:00 EDT,Height Start Date: 02/22/24 Status: Ordered Quantity: 90.0 Unit: tablet Repeat number: 2 Indication: Insomnia, unspecified Problem List Condition Confirmation Course Effective Dates Status Health Status Informant Abdominal pain Confirmed Active Actinic keratosis Confirmed Active Aortic stenosis Confirmed Active Atopic dermatitis Confirmed Active Atrophic pancreas Confirmed Active Bilateral cataracts Confirmed Active Bilateral leg edema Confirmed Active Esophageal ulcer with bleeding Confirmed Active Breast cancer screening Confirmed Active Bladder infection, chronic Confirmed Active Stage 1 chronic kidney disease Confirmed Active 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 Active Cobalamin deficiency Confirmed Active Vaccine counseling Confirmed Active Pancreas cyst Confirmed Active Daytime somnolence Confirmed Active Decreased estrogen level Confirmed Active Degenerative joint disease involving multiple joints Confirmed Active Diastasis recti Confirmed Active Diastasis of rectus abdominis Confirmed Active Mild diastolic dysfunction Confirmed Active Dyslipidemia Confirmed Active Epigastric pain Confirmed Active Fatigue Confirmed Active Fibromyalgia Confirmed Active Fracture - foot, shoulder (L) Confirmed Active Gastritis Confirmed Active Gastroesophageal reflux disease without esophagitis Confirmed Active Gout Confirmed 2010 Active 4, para 3 Confirmed Active Heart murmur Confirmed Active History of malignant neoplasm of breast Confirmed Active History of COVID-19 Confirmed Active Hypercholesterolemia Confirmed Active Hypertension Confirmed Active Hypomagnesemia Confirmed Active Hypothyroidism Confirmed Active IBS - Irritable bowel syndrome Confirmed Active Dyspepsia Confirmed Active Hepatitis - non alcoholic Confirmed Active Insomnia Confirmed Active Pruritus Confirmed Active Knee pain Confirmed Active Lesion of lung Confirmed Active Hair loss Confirmed Active Depression, major Confirmed Active Menopause Confirmed Active Mild major depression, single episode Confirmed Active Moderate aortic insufficiency Confirmed Active Multiple joint pain Confirmed Active Multiple nodules of lung Confirmed Active Myalgia Confirmed Active Nausea Confirmed Active Neoplasm of uncertain behavior of skin Confirmed Active 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 Active Non-alcoholic fatty liver Confirmed Active PETERS (nonalcoholic steatohepatitis) Confirmed Active Obese class I Confirmed Active Obesity Confirmed Active Obstructive sleep apnea syndrome Confirmed Active Osteopenia Confirmed Active Healthcare maintenance Confirmed Active Advance care planning Confirmed Active Prerenal azotemia Confirmed Active Ptosis of both eyelids Confirmed Active Rosacea Confirmed Active Sjogren's syndrome - per eye dr and dentist Confirmed Active Esophageal stricture Confirmed Active Type 2 diabetes mellitus Confirmed Active Ulcer of esophagus without bleeding Confirmed Active Urge incontinence Confirmed Active Vaginal prolapse Confirmed Active Vitamin D deficiency Confirmed Active Diagnosis Diagnosis Type Effective Dates Health Status Clini billy Service Informant Dysuria Discharge Diagnosis 08/17/24 Chills Discharge Diagnosis 08/17/24 Back pain Discharge Diagnosis 08/17/24 Vital Signs Most recent to oldest [Reference Range]: 1 Height 163 cm (08/17/24 1:03 PM) Oxygen Saturation [94-100 %] 97 % (08/17/24 1:03 PM) Pulse Rate [55-90 bpm] 81 bpm (08/17/24 1:03 PM) Blood Pressure [90-138/55-84 mm Hg] 137/ 76mm Hg (08/17/24 1:03 PM) Respiratory Rate [16-30 br/min] 108 br/m in *H* (08/17/24 1:03 PM) Temperature [96.8-100.4 DegF] 98.8 DegF (08/17/24 1:03 PM) Mode of Delivery (Oxygen) Room air (08/17/24 1:03 PM) Blood pressure sites Arm, left (08/17/24 1:03 PM) Temperature Route Temporal (08/17/24 1:03 PM) Social History Social History Type Response Smoking Status Former smoker; Other : quit ; entered on: 08/17/16 Sex Sex Representation Female (finding) Note * Ismael Carrillo: PERFORM Event Display: Patient Education/Instruction Authored Date: [id number] Ambulatory Adult Visit Summary [facility] [address] [place] [address] Name: ELLIE MCKEE : 1940?? Visit: 08/17/2024 12:48?? Ambulatory Visit Instructions ?? Your Care Team Primary Care Provider Alba Anguiano MD? This Visit Provider [facility] Your Diagnosis UTI symptoms Dysuria Chills Back pain Vitals Signs Temperature: 98.8 DegF Height: 163 cm Pulse Rate: 81 bpm ?? Respiratory Rate:??108 br/min??High ?? Systolic Blood Pressure: 137 mm Hg ?? Diastolic Blood Pressure: 76 mm Hg ?? Oxygen Saturation: 97 % ?? What to do next Scheduled Follow-Up Appointments Thursday 9:00 AM EST ?? With: Alba Anguiano MD Where: [address] [place] [address]- Status: Pending Future Orders Complete Urinalysis/Reflex Culture (Urinalysis Reflex Culture) - Urine Clean Catch, Once, *Est. 08/27/23?? Urine Culture - Routine, Urine Clean Catch, Once, Collected, 08/17/24 13:15:00 EST, Order for Today, [facility], Urine Clean Catch?? Medications The list below reflects the information in our records and provided by you today along with any changes made during this visit. Please continue your medications until treatment is completed or stopped by your provider. If this is different from the information you have or there are other questions,please contact the prescribing provider. What How Much When Why Instructions Unchanged Allopurinol (allopurinol 100 mg oral tablet) 2 tab(s) Oral Daily Duration: 90 Days Unchanged Atenolol (atenolol 25 mg oral tablet) 1 tab(s) Oral Daily Unchanged Cholecalciferol (Vitamin D3 1000 intl units oral capsule) 1 capsule Oral Daily Unchanged cinnamon 1,000 Milligram Oral Unchanged Cranberry Unchanged Duloxetine (duloxetine 20 mg oral enteric coated capsule) 2 capsule Oral Daily Unchanged Durable Medical Equipment (Freestyle Lancets) Unchanged Esomeprazole (Nexium 40 mg oral enteric coated capsule) 1 capsule Oral Daily Unchanged Ezetimibe (ezetimibe 10 mg oral tablet) TAKE 1 TABLET BY MOUTH DAILY ?? Unchanged Furosemide (furosemide 20 mg oral tablet) 1 tab(s) Oral Daily NEEDED FOR leg SWELLING ?? Unchanged Hydrochlorothiazide-Lisinopril (Zestoretic 25 mg-20 mg oral tablet) 1 tab(s) Oral Daily Unchanged Levothyroxine (levothyroxine 0.088 mg oral tablet) 1 tab(s) Oral Daily Unchanged Liothyronine (liothyronine 5 mcg oral tablet) 1 tab(s) Oral Daily Unchanged Metformin (MetFORMIN (Eqv-Glucophage XR) 500 mg oral tablet, extended release) 1 tab(s) Oral Twice a day Unchanged Miscellaneous Rx (Curcumin 750 mg) Twice a day Unchanged Miscellaneous Rx (Neuro-Mag) Unchanged Multivitamin (B Complex 100) Unchanged Pantoprazole (pantoprazole 40 mg oral delayed release tablet) 1 tab(s) Oral Daily take on empty stomach ?? Unchanged Rosuvastatin (Crestor 5 mg oral tablet) 1 tab(s) Oral Daily Unchanged Ubiquinone (Co Q-10) 100 Milligram Oral Daily Unchanged Zolpidem (zolpidem 5 mg oral tablet) See instructions Insomnia 1- 2 ??tablet By Mouth Daily at bedtime, As needed for for sleep ?? Test Performed Below is a partial list of the tests performed during your Visit. You may have had other tests and procedures not included in this list. Please discuss all test results with your provider. POC UA ([facility]) Urine Culture?-- Results Pending -- Lab Test Results Below is a partial list of the most recent Laboratory test results done during your Visit. You may have had other tests and procedures not included in this list. Please discuss all test results with your provider. Test Name Test Result Date/Time POC UA Glucose NEGATIVE 08/17/2024 13:07 EST POC UA Bilirubin NEGATIVE 08/17/2024 13:07 EST POC UA Ketones NEGATIVE 08/17/2024 13:07 EST POC UA Specific [place] 1.020 08/17/2024 13:07 EST POC UA Blood 2+ 08/17/2024 13:07 EST POC UA PH 5.5 1 08/17/2024 13:07 EST POC UA Protein 1+ 08/17/2024 13:07 EST POC UA Urobilinogen 0.2 mg/dL 08/17/2024 13:07 EST POC UA Nitrite POSITIVE 08/17/2024 13:07 EST POC UA Leukocytes 2+ 08/17/2024 13:07 EST POC UA Color ORANGE 08/17/2024 13:07 EST POC UA Clarity CLOUDY 08/17/2024 13:07 EST Point of Care Results POC Urinalysis Automated-Org/CLIA: [facility])/[id number] (08/17/24) Medications and Immunizations Administered Medications Given During Visit No medications given during this visit.?? Allergies (NKA means No Known Allergies) Crestor Indocin??(dizziness, nausea) Levaquin Lipitor??(rash) Mushrooms erythromycin gabapentin??( DEPRESSION ) penicillins??(rash) sulfADIAZINE??(swelling) Common Emergency Awareness Tips IS IT A STROKE? Act FAST and Check for these signs: FACE Does the face look uneven? ARM Does one arm drift down? SPEECH Does their speech sound strange? TIME Call at any sign of stroke ?? Heart Attack Signs Chest discomfort: Most heart attacks involve discomfort in the center of the chest and lasts more than a few minutes, or goes away and comes back. It can feel like uncomfortable pressure, squeezing, fullness or pain. Discomfort in upper body: Symptoms can include pain or discomfort in one or both arms, back, neck, jaw or stomach. Shortness of breath: With or without discomfort. Other signs: Breaking out in a cold sweat, nausea, or lightheaded. Remember, MINUTES DO MATTER. If you experience any of these heart attack warning signs, call to get immediate medical attention! ?? Smoking can increase your chances of developing chronic health problems and can cause harmful effects to other family members in your house. If you smoke, you are strongly encouraged to quit. Please call [facility] at [phone] or [phone] ([phone]) or log in to [email or web address] for referrals to smoking cessation programs. ?? The National Suicide Prevention Hotline is available 16/02 if you or someone you know needs to find a reason to keep living. By calling 2-332-428-Strikingly (0264) you'll be connected to a skilled, trained counselor at a crisis center in your area. [facility] You can view and manage your care through the patient portal or by using a health care jackelyn of your choosing. [facility] is a website that allows you to securely view your medical information including your hospital discharge summary, office visit summaries, medications and follow-up visits. You can also request appointments, renew medications, and request access to your medical information using a health care jackelyn of your choosing, or just ask a question. You can enroll at [email or web address] or register during your next office visit. [facility], in keeping with [facility] guidance, no longer requires face masks for staff, patientsor visitors in most situations. Similiar to time spent indoors at other locations, there is the chance that you were exposed to repiratory viruses during your time with us (such as flu or COVID-19). If you develop symptoms concerning for a viral respiratory infection, please seek testing (and treatment if indicated) from your medical provider or home test kit. ?? Disclaimer: The information provided is of a general nature and is intended to be used in conjunction with the recommendations and advice of your health care practitioner. Every effort has been made to ensure that the information provided is accurate and complete at the time it is provided to you however, as your needs change, or, as new information becomes available, different or additional instructions may be required. ?? If you have questions, please consult with your primary care provider or pharmacist, as appropriate. This information is not intended to serve as substitution for assessment and evaluation by a qualified health care provider. If you do not have a primary care provider, you may find a [facility] provider by calling [facility] at [phone]. Patient Care team information Care Team Personnel Name: Alba Anguiano MD Position: [facility] Physician - Primary Care Member Role: PCP Address: [address] [place] [address], [address] [facility] [place] [place] [address] Telecom: Name: Elma Corrigan Position: [facility] Outreach Member Role: [employer] Consult[employer] Physician Name: Quiana Kuhn Position: [facility] Outreach Member Role: [employer] Consulting Physician Care Team Related Persons Name: BRIANA MCKEE Name: KRISTAL MCKEE Insurance Providers Guarantor name: ELLIE [facility] Information #: 1 Payer: [employer] Member Number: [id number] Policy Number: [employer]I Group Number: [id number] Health Plan Information #: 2 Payer: [employer] Member Number: [id number] Policy Number: NA Group Number: NA
--- OUTSIDE RECORDS SUMMARY | 2024-09-07 10:52 | XMS_ITS | Clinical Summary ---
Author Organization [facility] Address [address] [place] [address] Care Team Providers Care Front Desk Supervisor Name Role Phone Alba Anguiano MD Primary Care Provider Encounters Date Type Department Care Team Description 09/02/2024 Telephone Gastroenterology [facility] [address] [facility] [address] [place] [address] Ramón Alvarez PA 08/29/2024 Telephone Gastroenterology [facility] [address] [facility] [address] [place] [address] Ramón Alvarez PA from Last 3 Months Surgical History Surgery Date Site/Laterality Comments BREAST LUMPECTOMY 1998 PROCEDURE: HISTORICAL BREAST LUMPECTOMY HYSTERECTOMY PROCEDURE: CA VAGINAL HYSTERECTOMY UTERUS 250 GM/< CHOLECYSTECTOMY PROCEDURE: HISTORICAL CHOLECYSTECTOMY ESOPHAGOGASTRODUODENOSCOPY 03/26/2022 PROCEDURE: CA EGD TRANSORAL BIOPSY SINGLE/MULTIPLE; COMMENT: mild congestion, biopsy negative for H.pylori Medical History Medical History Date Comments DJD (degenerative joint disease) DX:DJD (degenerative joint disease) Depression DX:Depression Osteopenia DX:Osteopenia Type 2 diabetes mellitus wit hout complications (CMS/HCC) DX:Type 2 diabetes mellitus without complications (HCC) Urge incontinence DX:Urge incont inence Hypothyroidism DX:Hypothyroidis m History of breast cancer 1998 DX:Hist ory of breast cancer Fibromyalgia DX:Fibromyalgia PETERS (nonalcoholic steatohepatitis) DX:PETERS (nonalcoholic steatohepatitis) Irritable bowel syndrome DX:Irri table bowel syndrome Dysphagia DX:Dysphagia Pancreatic cyst DX:Pancreatic cy st Nausea DX:Nausea Abdominal pain DX:Abdominal regan n Diastasis recti DX:Diastasis rec ti Hiatal hernia DX:Hiatal hernia Esophageal ulcer DX:Esophageal u lcer Abdominal bloating DX:Abdominal bloating Cirrhosis of liver (CMS/HCC) DX: Cirrhosis of liver (HCC) Fatigue DX:Fatigue Bloating DX:Bloating Family History Medical History Relation Name Comments Colon cancer Father Hypertension Father Diabetes Mother Other: Other Mother Relation Name Status Comments Father Mother Social History Tobacco Use Types Packs/Day Years Used Date Smoking Tobacco: Former Smokeless Tobacco: Never Alcohol Use Standard Drinks/Week Comments Never 0 (1 standard drink = 0.6 oz pur e alcohol) Comments Unknown Sex and Gender Information Value Date Recorded Sex Assigned at Not on file Legal Sex Female 8:06 AM EST Gender Identity Not on file Sexual Orientation Not on file Obstetrics History Last Filed Vital Signs Vital Sign Reading Time Taken Comments Blood Pressure 126/62 12/14/2023 1:43 PM EDT Pulse 82 12/14/2023 1:43 PM EDT Temperature - - Respiratory Rate - - Oxygen Saturation - - Inhaled Oxygen Concentration - - Weight 88 kg (194 lb 1.6 oz) 12/14/2023 1:43 PM EDT Height 165.1 cm (5' 5 ) 12/14/2023 1:43 PM EDT Body Mass Index 32.3 12/14/2023 1:43 PM EDT Plan of Treatment Health Maintenance Due Date Last Done Comments Diabetes: Annual GFR (Glomer ular Filtration Rate) 1942 Diabetes: Annual Foot Exam 02/01/1952 Diabetes: Annual Retina Eye Exam 02/01/1952 DTaP,Tdap,and Td Vaccines (1 - Tdap) 1961 Hepatitis A Vaccines (1 of 2 - Risk 2-dose series) 1961 Pneumococcal Vaccine: 50+ Ye ars (1 of 2 - PCV) 1961 Zoster Vaccines (1 of 2) 02/01/1992 Hepatitis B Vaccines (1 of 3 - Risk 3-dose series) 2002 RSV Immunization Patients 60 + Years Old (1 - 1-dose 75+ series) 2017 Cholesterol Screening (Lipid Panel) 07/06/2022 Depression Screening 07/06/2022 Falls Risk Assessment 07/06/2022 Osteoporosis Screening (Bone Density Screening) 07/06/2022 Social Influencers of Health Screening 07/06/2022 Diabetes: Annual Urine Albumin-Creatinine Ratio (uACR) 07/12/2022 Diabetes: Blood Sugar Contro l Test (HGBA1C) 07/12/2022 COVID-19 Vaccine (2023-2 5 season) 2024 Influenza Vaccine (#1) 2024 HIB Vaccines Aged Out No longer eligi ble based on patient's age to complete this topic HPV Vaccines Aged Out No longer eligi ble based on patient's age to complete this topic IPV Vaccines Aged Out No longer eligi ble based on patient's age to complete this topic MMR Vaccines Aged Out No longer eligi ble based on patient's age to complete this topic Meningococcal ACWY Vaccine Aged Out N o longer eligible based on patient's age to complete this topic Meningococcal B Vacine Aged Out No lo nger eligible based on patient's age to complete this topic RSV Immunization Patients Un shiloh 20 months Aged Out No longer eligible b ased on patient's age to complete this topic Varicella Vaccines Aged Out No longer eligible based on patient's age to complete this topic Care Teams Front Desk Supervisor Relationship Specialty Start Date End Date Alba Anguiano MD PCP - General Internal Medicine 11/05/21
--- OUTSIDE RECORDS SUMMARY | 2024-09-07 10:52 | XMS_ITS | Encounter Summary ---
Author Organization [facility] Address [address] [place] [address] Care Team Providers Care Diagnostics Tech Name Role Phone Alba Anguiano MD Primary Care Provider [phone] Encounter Details Date Type Department Care Team (Late st Contact Info) Description 08/29/2024 Telephone Gastroenterology - [place] [address] [facility] [address] [place] [id number] Ramón Alvarez PA [address] [facility] [address] [place] [address] Social History Tobacco Use Types Packs/Day Years [...] as of this encounter Progress Notes * More Prieto MA - 09/02/2024 10:10 AM EST I have contacted patient and left vm to c/b. * SARAHY Hardy - 09/01/2024 4:56 PM EST A letter has been sent to her to remind her that she needs to repeat the ultrasound and should be done every 6 months due to the fact that she has cirrhosis. That she had her last ultrasound in January and she is due in July which would be past due. If she wants to have the ultrasound done at [facility] again, we can arrange to change the order to external order for [facility] but please let me know what she wants to do but she does have to have a repeat ultrasound every 6 months * More Prieto MA - 09/01/2024 3:59 PM EST [facility] has faxed the most recent US they had for patient and I have placed this in your binfor review. It is from 01/2024. Were you looking for something more recent? * More Prieto MA - 08/30/2024 11:11 AM EST Request Faxed to [facility] [phone]. * SARAHY Hardy - 08/29/2024 2:57 PM EST Could you obtain patient's last ultrasound that was performed at [facility] for cirrhosis. Thank you documented in this encounter Plan of Treatment Not on file documented as of this encounter Visit Diagnoses Not on filedocumented in this encounter Care Teams Diagnostics Tech Relationship Specialty Start Date End Date Alba Anguiano MD PCP - General Internal Medicine 11/05/21 documented as of this encounter
== END 2024-09-07 10:27 | disposition home or self-care (01) ==
PROVIDERS: PCP Internal Medicine; Visit Provider Internal Medicine
DX: K29.90 Gastroduodenitis, unspecified, without bleeding (principal); R10.11 Right upper quadrant pain; R10.13 Epigastric pain; R68.81 Early satiety
CPT/HCPCS: 99214

== ENCOUNTER → 2024-09-07 09:36 | Outpatient (BNVA) | payer BC, SELFPAY | PROVIDERS: PCP Internal Medicine; Visit Provider Internal Medicine ==

== ENCOUNTER 2024-12-07 08:39 | Outpatient (AMB) | payer BC, SELFPAY ==
[2024-12-07 08:44] VITALS: BP 130/60; PULSE 78; BMI 30.1
--- NOTE | 2024-12-07 08:44 | A.OFFVIS_ITS ---
Vital Signs 12/07/24 08:44 Height 5 ft 5 in Weight 180 lb 12.465 oz BMI 30.1 BP 130/60 Blood Pressure Location Lt brachial Position Sitting Pulse 78 Intake Visit Reasons: 3 mo f/u Intake Note: Kayy presents in the office as a 3 month follow up. CC: No new concerns - all the same concerns as last visit. Machine Or Machinery Mechanic Required: No Allergies atorvastatin Allergy (Verified 12/07/24 08:44) Rash Penicillins Allergy (Verified 12/07/24 08:44) Rash Sulfa (Sulfonamide Antibiotics) Allergy (Verified 12/07/24 08:44) Difficulty Breathing gabapentin Adverse Reaction (Severe, Verified 12/07/24 08:44) Unknown indomethacin Adverse Reaction (Verified 12/07/24 08:44) Unknown levofloxacin [From Levaquin] Adverse Reaction (Verified 12/07/24 08:44) Unknown HPI Comments Details: 84 y.o F with PMH of fatty liver/PETERS thought to be secondary to tamoxifen initially and now likely from metabolic factors who is here for a second opinion on PETERS/cirrhosis. Reports has had lonstanding hx of fatty liver. Used to be under care of Dr Morley and then later Ramón Alvarez. More recently has been diagnosed with possible cirrhosis for which she is here to seek another opinion. Used to be on a good regimented high protein diet but around 6-8 months ago reports increased fatigue, lack of energy and interest in most of her daily activities. Slipped off the diet. Had sudden weight gain of almost 20 lbs in 2 months leading to poor DM control and possibly cirrhosis on imaging. With this, now more recently has also developed fatigue and increased overall body aches with low energy. Reports fullness in abd mike after any oral intake in 5-10 mins. With nausea. No burping or belching. BMs fluctuate between formed and diarrhea. No blood in stool. On pantoprazole 40 once daily. Also on duloxetine 20 for fibromyalgia - recently increased to 40. 03/2023: EGD esophageal ulcers 10/2023: liver with nodular contour Father: liver cancer. - unk cause. 07/15/24: Here for follow up. Labs reviewed, neg for iron overload, autoimmune hepatitis, celiac. Reports continued disinterest and fatigue even to do daily tasks. PHQ-9 score is 19 in office today. PCP visit pending. In terms of GI sx, continues to have mid epigastric pain and fullness sensation. Worse on sitting down. Better on standing. Barium swallow records available now and note made of lower esophageal narrowing with 13 mm tablet not able to go through. Pt already amauri for EGD in 4 weeks. Today, pt also reports worsening R sided pain and tenderness, unable to lay on that side at night. Swelling like sensation in that area. In terms of non-iron deficiency anemia, seeing Hematology and started on B12 and folate supplementation. EGD 08/23/24: * Normal esophagus (biopsy) * Hiatal hernia * Gastritis (biopsy) * Duodenitis (biopsy)?? A. Duodenum, biopsy: Duodenal mucosa within normal limits. B. Stomach, antrum lesser curvature, biopsy: Antral-type mucosa with mild chronic inactive inflammation; no Helicobacter organisms seen. C. Stomach, antrum greater curvature, biopsy: Antral-type mucosa with mild chronic inactive inflammation; no Helicobacter organisms seen. D. Stomach, incisura, biopsy: Oxyntic mucosa with mild chronic inactive inflammation; no Helicobacter organisms seen. E. Stomach, body lesser curvature, biopsy: Oxyntic mucosa with mild chronic inactive inflammation; no Helicobacter organisms seen. F. Stomach, body greater curvature, biopsy: Oxyntic mucosa within normal limits; no Helicobacter organisms seen. G. Esophagus, lower, biopsy: Active esophagitis (maximum eosinophil count 2 per high powered field). H. Esophagus, middle, biopsy: Active esophagitis (maximum eosinophil count 5 per high powered field) 09/07/24: Here for post EGD follow up. Reports persistent abd pain and lack of appetite. Bx results reviewed with the pt. Reassured that no dysplasia noted in stomach bx. In addition no signs of portal HTN noted such as PHG or varices. Taking rabeprazole 20 but causing more nausea and vomiting by the late afternoon. Wanting to go back to omeprazole. 12/07/24: Routine 3m follow up. Reports side effects to mirtazipine - sleepy during daytime, mood changes, swelling in legs and hands. Stopped mirtazipine a month ago. Otherwise abd pain has been a lot better with omeprazole. Swallowing was better but recently had oral surgery with removal of teeth so still sore in mouth and sticking to liquids. Also reports leg soreness and pain bilaterally. Not in joints. Has varicose veins on exam. [facility] Medical History (Updated 12/07/24 @ 09:22 by Rand Beverly MD) Gout Thyroid disease High cholesterol High blood pressure Diabetes mellitus 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 Arthritis Fibromyalgia Surgical History (Updated 12/07/24 @ 08:47 by FATIMAH Olivo) Hx of wisdom tooth extraction History of liver biopsy Hx of hysterectomy Hx of cholecystectomy Hx of colonoscopy History of lumpectomy of left breast History of esophagogastroduodenoscopy (EGD) Family History Father Liver cancer Sister Skin cancer Social History Household Members: Spouse Are you a primary career technical education teacher to a significant other at home: No Do you presently have visiting nurse or other home services: No Alcohol intake: never Patient Tobacco Use Status: Never used Tobacco service: No Current occupational status: retired Review of Systems Const All systems reviewed & are unremarkable except as noted in HPI and below Physical Exam Vital Signs: Last Vital Signs Pulse 78 12/07/24 08:44 BP 130/60 12/07/24 08:44 BMI result Body Mass Index 30.1 No apparent distress Nonicteric Abdomen soft, nondistended Alert and oriented x3, normal gait Assessment & Plan Assessment & Plan (1) Gastritis and duodenitis: Code(s): K29.90 - Gastroduodenitis, unspecified, without bleeding Category: Medical (2) Postprandial RUQ pain: Code(s): R10.11 - Right upper quadrant pain Category: Medical (3) Epigastric pain: Code(s): R10.13 - Epigastric pain Category: Medical (4) Early satiety: Code(s): R68.81 - Early satiety Category: Medical Plan # Gastritis: # Dysphagia: Gastritis without H pylori. Has had good response to omeprazole BID. Have advised to cut this to once daily since has been on BID dosing x 12 weeks. Swallowing better, will book for repeat EGD with empiric dilation before referring to [facility]. Plan: - Decrease omeprazole 20 to once daily - Repeat EGD with empiric dilation - if no response to this, next step will be HREM #MAFLD/PETERS Likely has advanced fibrosis based on elastography 2023. No CSPH so far based on platelets and EGD findings. Plan: - US Abd due January 2025 # ??? panc cyst Pt reports being informed of a pancreatic cyst by Dr Morley many years ago however CT abd/pel reports reviewed from [id number] in [facility] EMR without any mention of pancreatic cyst. Plan: - pt/son will bring prev records for review. - discussed ordering MRI for January for hcc screening and panc cyst surveillance but pt would like to hold off for now until records are reviewed # Leg pain Likely 2/2 venous insufficiency and varicose veins. Plan: - VAscular surg referral requested Follow up after egd Orders: Orders US abdomen complete 2 Months K76.0 - Fatty (change of) liver, not elsewhere classified Referrals Vascular Surgery Referral I83.813 - Varicose veins of bilateral lower extremities with pain, I87.2 - Venous insufficiency (chronic) (peripheral) Coding Level of Care Code Est Pt Level 4 (58279) Diagnoses Gastritis and duodenitis K29.90 Postprandial RUQ pain R10.11 Epigastric pain R10.13 Early satiety R68.81
--- OUTSIDE RECORDS SUMMARY | 2024-12-07 08:55 | XMS_ITS | Clinical Summary ---
Author Organization [facility] it Address [address] [place] [address] Care Team Providers Care Dialysis Chief Equipment Technician Name Role Phone Alba Anguiano MD Primary Care Provider [phone] Encounters Date Type Department Care Team Description 10/18/2024 Telephone Gastroenterology - [place] [address] [facility] [address] [place] [address] Ramón Alvarez PA from Last 3 Months Surgical History Surgery Date Site/Laterality Comments BREAST LUMPECTOMY 1998 PROCEDURE: HISTORICAL BREAST LUMPECTOMY HYSTERECTOMY PROCEDURE: NM VAGINAL HYSTERECTOMY UTERUS 250 GM/< CHOLECYSTECTOMY PROCEDURE: HISTORICAL CHOLECYSTECTOMY ESOPHAGOGASTRODUODENOSCOPY 03/26/2022 PROCEDURE: NM EGD TRANSORAL BIOPSY SINGLE/MULTIPLE; COMMENT: mild congestion, biopsy negative for H.pylori Medical History Medical History Date Comments DJD (degenerative joint disease) DX:DJD (degenerative joint disease) Depression DX:Depression Osteopenia DX:Osteopenia Type 2 diabetes mellitus wit hout complications (CMS/HCC V24, CMS/HCC V28) DX:Type 2 teresa betes mellitus without complications (HCC) Urge incontinence DX:Urge [...] Abdominal bloating DX:Abdominal bloating Cirrhosis of liver (CMS/HCC V24, CMS/HCC V28) DX:Cirrhosis of liver (HCC) Fatigue DX:Fatigue Bloating DX:Bloating [...] - Risk 3-dose series) 2002 RSV Immunization Adult Patie nts (1 - 1-dose 75+ series) 2017 Cholesterol Screening (Lipid Panel) 07/06/2022 Depression Screening 07/06/2022 Falls Risk Assessment 07/06/2022 Osteoporosis Screening (Bone Density Screening) 07/06/2022 Social Influencers of Health Screening 07/06/2022 Diabetes: Annual Urine Albumin-Creatinine Ratio (uACR) 07/12/2022 Diabetes: Blood Sugar Contro l Test (HGBA1C) 07/12/2022 COVID-19 Vaccine (2023-2 5 season) 2024 Influenza Vaccine (Season Ended) 2025 HIB Vaccines Aged Out No longer eligi [...] age to complete this topic Meningococcal B Vaccine Aged Out No l onger eligible based on patient's age to complete this topic RSV Immunization Patients Un shiloh 20 months Aged Out No longer eligible b ased on patient's age to complete this topic Varicella Vaccines Aged Out No longer eligible based on patient's age to complete this topic Procedures Procedure Name Priority Date/Time Associated Diagnosis Comments US ABDOMEN LIMITED Routine 09/09/2024 8:32 AM EST from Last 3 Months Results * US Abdomen Limited (09/09/2024 8:32 AM EST) Anatomical Region Laterality Modality Body Ultrasound us Historical Provider MD [facility]KEON US PROCEDURES Final R esult from Last 3 Months Care Teams Dialysis Chief Equipment Technician Relationship Specialty Start Date End Date Alba Anguiano MD PCP - General Internal Medicine 11/05/21
== END 2024-12-07 09:51 | disposition home or self-care (01) ==
LOC: HO.HGI 08:40
PROVIDERS: PCP Internal Medicine; Visit Provider Internal Medicine
DX: K29.90 Gastroduodenitis, unspecified, without bleeding (principal); R10.11 Right upper quadrant pain; R10.13 Epigastric pain; R68.81 Early satiety
CPT/HCPCS: 99214

== ENCOUNTER 2024-12-13 11:10 | Outpatient (AMB) | payer BC, SELFPAY ==
--- NOTE | 2024-12-13 11:24 | A.OFFVIS_ITS ---
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 Pt states Right LE slightly worse than the Left LE. Hx of bilateral stripping in the . States she has hx of clots. Currently has burning, itching, swelling and sharp pains in her legs. 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 Complaints include pain from the groins to her toes, swelling of lower extremities, cramping, fatigue, tiredness, itchiness, and heaviness of the lower extremities. It has been affecting their daily activities including walking, standing, and physical activity. It is noted in both of her legs. She states this has been going on for appx 10-11y now but no doctor has wanted to address it. She does have a hx of vein stripping in the with Dr Kuo at [place] due to blood clots. She has not had any issues with blood clots since. She states the pain gets worse with any walking and usually stops when she stops walking. She states the pain is throbbing, all of the time. She is prescribed a diuretic, for which she takes when the swelling gets particularly bad. She is a nonsmoker. 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 Patient had vein stripping in bilateral GSVs in the . Patient denies any history of DVT/ PE. Patient denies any history of phlebitis. Trial of compression includes - elevation with little relief They now present for vascular evaluation regarding their varicose veins. 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 Arthritis Fibromyalgia Surgical History Hx of wisdom tooth extraction History of liver biopsy Hx of hysterectomy Hx of cholecystectomy Hx of colonoscopy History of lumpectomy of left breast History of esophagogastroduodenoscopy (EGD) Family History Father Liver cancer Sister Skin cancer Social History Household Members: Spouse Are you a primary care transition mgr to a significant other at home: No Do you presently have visiting nurse or other home services: No Alcohol intake: never Patient Tobacco Use Status: Never used Tobacco service: No Current occupational status: retired Review of Systems Const Reports as per HPI and Denies weakness ENT Reports Normal hearing present and Denies dizziness Card Reports as per HPI, Denies chest pain, Denies chest pain at rest, Denies chest pain with activity, Denies dyspnea and Denies dyspnea on exertion Resp Reports as per HPI, Denies cough, Denies dyspnea and Denies dyspnea on exertion GI Reports as per HPI, Denies abdominal pain, Denies nausea and Denies vomiting Musc Denies numbness Skin/Breast Reports as per HPI, Denies erythema and Denies wounds Neuro Reports Normal hearing present, Denies dizziness, Denies numbness, Denies Sensory deficit (Neuro) and Denies weakness Psych Reports no additional complaints Endo Reports no additional complaints Physical Exam Vital Signs: BMI result Body Mass Index 30.0 Const General: healthy appearing and no acute distress Orientation/consciousness: patient oriented x3 HEENT Head: Yes normal to inspection Ears: hearing grossly normal bilaterally Mouth: Normal oral and palatal mucosa present Resp Effort & Inspection: normal respiratory effort and able to speak in complete sentences Auscultation: clear to auscultation bilaterally Cardio Jugular venous distension: no JVD Rate: regular rate Rhythm: regular rhythm Heart sounds: S1 normal heart sound present and S2 normal heart sound present Bruits: no abdominal aortic bruits, no carotid bruits, no femoral bruits and no renal bruits Peripheral pulses: Peripheral pulses 2+ throughout GI Inspection: Yes normal to inspection Palpation (GI): No Abdominal aortic bruit present Skin General skin exam: no rashes or lesions noted Wounds: no wounds Hair: normal Neuro General: patient oriented x3 Cranial nerves: Yes Normal hearing present Cognition (Neuro): normal cognition Gait exam (Neuro): Normal gait present Motor exam (neuro): 5/5 motor strength present throughout Sensory Exam: No Sensory deficit (Neuro) Extrem Other: Bilateral lower extremities: +2 pitting edema noted. Discoloration noted around the ankles. Palpable, strong DP pulses. No wounds noted. CEAP: C - 4 E - primary A - superficial P - reflux General: Yes normal to inspection, Yes full ROM, Yes capillary refill normal and Yes normal gait Assessment & Plan Assessment & Plan (1) Varicose veins of bilateral lower extremities with pain: Code(s): I83.813 - Varicose veins of bilateral lower extremities with pain Category: Medical Plan: Kayy is presenting today as a referral from her Gastro for concerns of bilateral lower extremity swelling and pain >10y. I do believe she may have some lymphedema as well; but we would like to r/o any venous insufficiency first. In short, the patient has evidence of venous insufficiency. I have discussed the pathophysiology with the patient. In addition I have provided informational material regarding venous disease to the patient. We have discussed conservative measures including compression, elevation, and exercise. We were able to provide her with a couple of pairs of compression socks today. I have taken the liberty of ordering venous insufficiency testing with the patient. They will follow up with me after testing. The patient had an opportunity to ask questions regarding the treatment plan. All questions were answered. Imaging studies, laboratory studies and physical exam results were discussed and reviewed in detail. No major barriers to understanding were identified. The patient expressed understanding and agreement with the above treatment plan. The patient is aware they should contact our office by phone for worsening of the current condition or the appearance of new symptoms. Thank you for allowing me to participate in the vascular care of this patient. If you have any questions or concerns regarding the treatment for the above condition please do not hesitate to contact me. The office telephone contact is [phone]. This note is constructed using voice recognition software. While every effort has been made to ensure accuracy, rubber roller grinder operator errors may have been included. Thank you for allowing me to participate in the care of your patient. Yours sincerely, SARAHY Matamoros Orders: Orders US venous duplex LE 1 Week I83.813 - Varicose veins of bilateral lower extremities with pain Coding Level of Care Code New Pt Level 4 (23653) Diagnoses Varicose veins of bilateral lower extremities with pain I83.813
--- OUTSIDE RECORDS SUMMARY | 2024-12-13 12:29 | XMS_ITS | Clinical Summary ---
Author Organization [facility] it Address [address] [place] [address] Care Team Providers Care Multi Spindle Operator Name Role Phone Alba Anguiano MD Primary Care Provider [phone] Encounters Date Type Department Care Team Description 10/18/2024 Telephone Gastroenterology - [place] [address] [facility] [address] [place] [address] Ramón Alvarez PA from Last 3 Months Surgical History Surgery Date Site/Laterality Comments BREAST LUMPECTOMY 1998 PROCEDURE: HISTORICAL BREAST LUMPECTOMY HYSTERECTOMY PROCEDURE: [place] VAGINAL HYSTERECTOMY UTERUS 250 GM/< CHOLECYSTECTOMY PROCEDURE: HISTORICAL CHOLECYSTECTOMY ESOPHAGOGASTRODUODENOSCOPY 03/26/2022 PROCEDURE: MT EGD TRANSORAL BIOPSY SINGLE/MULTIPLE; COMMENT: mild congestion, [...] age to complete this topic Care Teams Multi Spindle Operator Relationship Specialty Start Date End Date Alba Anguiano MD PCP - General Internal Medicine 11/05/21
== END 2024-12-13 12:08 | disposition home or self-care (01) ==
LOC: HO.HVS 11:11
PROVIDERS: PCP Internal Medicine; Visit Provider Physician Assistant Surgical
DX: I83.813 Varicose veins of bilateral lower extremities with pain (principal)
CPT/HCPCS: 99204

== ENCOUNTER → 2024-12-13 11:10 | Outpatient (BNVA) | payer BC, SELFPAY | PROVIDERS: PCP Internal Medicine; Visit Provider Physician Assistant Surgical ==

== ENCOUNTER 2025-01-04 08:15 | Outpatient (REF) | payer MEDICARE, SELFPAY ==
--- NOTE | ~2025-01-04 | US_ITS ---
EXAMINATION: US LOWER EXTREMITY VENOUS (REFLUX EXAM), BILATERAL CLINICAL INFORMATION: Great saphenous vein stripping, 1969. COMPARISON: None. TECHNIQUE: Color flow triplex imaging and compression Doppler was performed to evaluate both the deep and the superficial systems bilaterally. To evaluate the superficial system, the examination was performed in the upright position. Color-flow Doppler ultrasound and compression ultrasound were utilized. In addition, maneuvers were utilized to demonstrate reflux. FINDINGS: 1. DEEP VENOUS ULTRASOUND OF THE RIGHT LOWER EXTREMITY: Common Femoral Vein: Compressible, normal respiratory variation and augmented flow. Femoral Vein: Compressible, normal color flow and augmentation. Popliteal Vein: Compressible, normal augmentation. Deep Reflux: There is no evidence of reflux in the deep system in either the common femoral vein, superficial femoral or the popliteal vein. There is no evidence of a Meyers's cyst. 2. SUPERFICIAL ULTRASOUND WITH DOPPLER OF RIGHT LOWER EXTREMITY: GREAT SAPHENOUS VEIN: Absent. DUPLICATED MEDIAL GREAT SAPHENOUS VEIN: Diameter: None imaged Reflux: NA DUPLICATED LATERAL GREAT SAPHENOUS VEIN: Diameter: None imaged Reflux: NA SMALL SAPHENOUS VEIN: Saphenopopliteal Junction: 0.2 cm; Reflux: 0 ms Proximal: 0.2 cm; Reflux: 0 ms Distal: 0.2 cm; Reflux: 0 ms VEIN OF GIACOMINI: Size: NA Reflux: NA PERFORATORS: Location: Mid thigh and midcalf. Size: 0.3 cm. Reflux: NA VARICOSITIES: Location: Distal thigh and midcalf. Size: 0.2-0.3 cm. Reflux: 2144 ms-2612 ms. 3. DEEP VENOUS ULTRASOUND OF THE LEFT LOWER EXTREMITY: Common Femoral Vein: Compressible, normal respiratory variation and augmented flow. Femoral Vein: Compressible, normal color flow and augmentation. Popliteal Vein: Compressible, normal augmentation. Deep Reflux: There is no evidence of reflux in the deep system in either the common femoral vein, superficial femoral or the popliteal vein. There is a 4.6 cm lobulated anechoic lesion without flow on color Doppler interrogation, centered in the superior medial aspect of the left knee. 4. SUPERFICIAL ULTRASOUND WITH DOPPLER OF LEFT LOWER EXTREMITY: GREAT SAPHENOUS VEIN: Absent. SMALL SAPHENOUS VEIN: Saphenopopliteal Junction: 0.4 cm; Reflux: 0 ms Proximal: 0.2 cm; Reflux: 0 ms Distal: 0.2 cm; Reflux: 0 ms VEIN OF GIACOMINI: Size: NA Reflux: NA PERFORATORS: Location: At the knee and proximal calf. Size: 0.3 cm. Reflux: 2436 ms at the knee. VARICOSITIES: Location: Distal thigh and at the knee. Size: 0.3-0.4 cm. Reflux: 2208 ms-2864 ms. US/US venous duplex LE BI IMPRESSION: Right: No venous insufficiency. Varices with reflux distal thigh to the mid calf. Perforators without reflux. Left: No venous insufficiency. Varices with reflux in the distal thigh to the knee. Perforators with reflux at the knee. 4.6 cm cystic lesion/fluid collection, superior medial knee. Electronically signed by: Ken Hall MD 01/04/2025 03:42 PM EDT
--- OUTSIDE RECORDS SUMMARY | 2025-01-04 08:23 | XMS_ITS | Clinical Summary ---
Author Organization [facility] it Address [address] [place] [address] Care Team Providers Care Vp Publisher Development Name Role Phone Alba Anguiano MD Primary Care Provider Encounters Date Type Department Care Team Description 10/18/2024 Telephone Gastroenterology - [place] [address] [facility] [address] [place] [address] Ramón Alvarez PA from Last 3 Months Surgical History Surgery Date Site/Laterality Comments BREAST LUMPECTOMY 1998 PROCEDURE: HISTORICAL BREAST LUMPECTOMY HYSTERECTOMY PROCEDURE: [place] VAGINAL HYSTERECTOMY UTERUS 250 GM/< CHOLECYSTECTOMY PROCEDURE: HISTORICAL CHOLECYSTECTOMY ESOPHAGOGASTRODUODENOSCOPY 03/26/2022 PROCEDURE: [place] EGD TRANSORAL BIOPSY SINGLE/MULTIPLE; COMMENT: mild congestion, [...] age to complete this topic Care Teams Vp Publisher Development Relationship Specialty Start Date End Date Alba Anguiano MD PCP - General Internal Medicine 11/05/21
== END 2025-01-04 08:16 | disposition home or self-care (01) ==
LOC: HO.US 08:15
PROVIDERS: PCP Internal Medicine; Visit Provider Physician Assistant Surgical
DX: I83.813 Varicose veins of bilateral lower extremities with pain (principal)
CPT/HCPCS: 93970

== ENCOUNTER → 2025-01-04 08:18 | Outpatient (BNV) | payer MEDICARE, SELFPAY | PROVIDERS: PCP Internal Medicine; Visit Provider Radiology Diagnostic Radiology | DX: I83.813 Varicose veins of bilateral lower extremities with pain (principal) | CPT/HCPCS: 93970 ==

== ENCOUNTER 2025-01-12 08:50 | Outpatient (AMB) | payer MEDICARE, SELFPAY ==
--- NOTE | 2025-01-12 09:03 | A.OFFVIS_ITS ---
Vital Signs 01/12/25 09:03 Height 5 ft 5 in Weight 180 lb BMI 30.0 Intake Visit Reasons: follow up s/p [facility] 01/04/25 Intake Note: follow up [facility] 01/04/25.for Right LE worse than Left LE burning, itching,swelling and sharp pains. Pt states that she has numbness in the left leg and discoloration in the Right foot. Accompanied by: Son Allergies atorvastatin Allergy (Verified 01/12/25 09:05) Rash Penicillins Allergy (Verified 01/12/25 09:05) Rash Sulfa (Sulfonamide Antibiotics) Allergy (Verified 01/12/25 09:05) Difficulty Breathing gabapentin Adverse Reaction (Severe, Verified 01/12/25 09:05) Unknown indomethacin Adverse Reaction (Verified 01/12/25 09:05) Unknown levofloxacin (From Levaquin) Adverse Reaction (Verified 01/12/25 09:05) Unknown HPI HPI follow up s/p [facility] 01/04/25: Details: Kayy is presenting today for a follow up to [facility], performed on 01/04. She continues to endorse bialteral, R>L, with pain and inflammation. She states the pain is worse at night. She has no new concerns today. 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 Arthritis Fibromyalgia Surgical History Hx of wisdom tooth extraction History of liver biopsy Hx of hysterectomy Hx of cholecystectomy Hx of colonoscopy History of lumpectomy of left breast History of esophagogastroduodenoscopy (EGD) Family History Father Liver cancer Sister Skin cancer Social History Household Members: Spouse Are you a primary overnight caregiver to a significant other at home: No Do you presently have visiting nurse or other home services: No Alcohol intake: never Patient Tobacco Use Status: Never used Tobacco service: No Current occupational status: retired Review of Systems Const Reports as per HPI and Denies weakness ENT Reports Normal hearing present and Denies dizziness Card Reports as per HPI, Denies chest pain, Denies chest pain at rest, Denies chest pain with activity, Denies dyspnea and Denies dyspnea on exertion Resp Reports as per HPI, Denies cough, Denies dyspnea and Denies dyspnea on exertion GI Reports as per HPI, Denies abdominal pain, Denies nausea and Denies vomiting Musc Denies numbness Skin/Breast Reports as per HPI, Denies erythema and Denies wounds Neuro Reports Normal hearing present, Denies dizziness, Denies numbness, Denies Sensory deficit (Neuro) and Denies weakness Psych Reports no additional complaints Endo Reports no additional complaints Physical Exam Vital Signs: BMI result Body Mass Index 30.0 Const General: healthy appearing and no acute distress Orientation/consciousness: patient oriented x3 HEENT Head: Yes normal to inspection Ears: hearing grossly normal bilaterally Mouth: Normal oral and palatal mucosa present Resp Effort & Inspection: normal respiratory effort and able to speak in complete sentences Auscultation: clear to auscultation bilaterally Cardio Jugular venous distension: no JVD Rate: regular rate Rhythm: regular rhythm Heart sounds: S1 normal heart sound present and S2 normal heart sound present Bruits: no abdominal aortic bruits, no carotid bruits, no femoral bruits and no renal bruits Peripheral pulses: Peripheral pulses 2+ throughout GI Inspection: Yes normal to inspection Palpation (GI): No Abdominal aortic bruit present Skin General skin exam: no rashes or lesions noted Wounds: no wounds Hair: normal Neuro General: patient oriented x3 Cranial nerves: Yes Normal hearing present Cognition (Neuro): normal cognition Gait exam (Neuro): Normal gait present Motor exam (neuro): 5/5 motor strength present throughout Sensory Exam: No Sensory deficit (Neuro) Extrem Other: Right lower extremity: +2 pitting edema noted. Rope like varicosity, starting on the medial aspect of the thigh to the medial aspect of the mid calf, painful to palpation. Left lower extremity: +2 pitting edema noted. Smaller rope like varicosity on the medial aspect of the knee to just below the knee, tender to palpation. General: Yes normal to inspection, Yes full ROM, Yes capillary refill normal and Yes normal gait Results Reviewed Results Reviewed: Brief summary of venous insufficiency testing is as follows: right great saphenous vein: not seen right small saphenous vein: negative right accessory vein: none present left great saphenous vein: not seen left small saphenous vein: negative left accessory vein: none present Please note there is no evidence of any venous aneurysms or significant tortuosity VV noted in the RLE at the distal/medial thigh and mid calf and in the LLE at the distal thigh and at the knee Assessment & Plan Assessment & Plan (1) Varicose veins of bilateral lower extremities with pain: Code(s): I83.813 - Varicose veins of bilateral lower extremities with pain Category: Medical Plan: Kayy is presenting today on a follow up to [place], performed on 01/04. The was negative for insufficiency but did note some varicosities bilaterally. She continues with pain, swelling, and discomfort, R>L, particularly around the knee and down her calf. This patient has varicose veins with inflammation. They continue to be a source of discomfort for the patient. The patient has tried conservative treatment with compression, leg elevation and exercise program for over 3 months time. They have been compliant with all treatment. This has provided minimal relief for the patient. I do not anticipate this course of treatment will alter the underlying etiology. The patient has been scheduled for lower extremity venous treatment inclusive of --- right lower extremity microphlebectomy. Risks, benefits, and complications of this procedure has been discussed in detail with the patient including but not limited to bleeding, infection, and the development of a DVT. The patient has demonstrated a clear understanding and has consented. We will schedule the patient as soon as possible. Thank you for allowing us to participate in this patient's care. If there are any questions or concerns please do not hesitate to contact us. Coding Level of Care Code Est Pt Level 4 (76153) Diagnoses Varicose veins of bilateral lower extremities with pain I83.813 Comment review of US
== END 2025-01-12 09:22 | disposition home or self-care (01) ==
LOC: HO.HVS 08:51
PROVIDERS: PCP Internal Medicine; Visit Provider Physician Assistant Surgical
DX: I83.813 Varicose veins of bilateral lower extremities with pain (principal)
CPT/HCPCS: 99214

== ENCOUNTER → 2025-01-12 08:50 | Outpatient (BNVA) | payer MEDICARE, SELFPAY | PROVIDERS: PCP Internal Medicine; Visit Provider Physician Assistant Surgical | DX: I83.813 Varicose veins of bilateral lower extremities with pain (principal) | CPT/HCPCS: 99212 ==

== ENCOUNTER 2025-01-23 11:05 | Outpatient (REF) | payer MEDICARE, SELFPAY ==
--- NOTE | ~2025-01-23 | US_ITS ---
CLINICAL HISTORY: K76.0 - Fatty (change of) liver, not elsewhere classified US abdomen complete. COMPARISON: US abdomen dated 08/09/24 at 09:21 EST Technique: Real time sonographic imaging, including color-flow imaging, was performed by the transport operations inspector. Multiple solar sales representative static images were saved for review. FINDINGS: The visualized aorta and inferior vena cava are normal caliber. The visualized portions of the pancreas appear normal. The liver has diffusely increased echogenicity. Liver, right lobe size: 17.0 cm, normal. Status post cholecystectomy. Common bile duct: 5 mm, normal. Right kidney: Cortical medullary differentiation is maintained. Normal color flow by Doppler. Anechoic right renal cyst at the superior pole measuring 0.9 x 0.9 x 0.9 cm. No hydronephrosis. Right kidney length: 11.2 cm Left kidney: Cortical medullary differentiation is maintained. Normal color flow by Doppler. No calculus or focal parenchymal abnormality identified. No hydronephrosis. Left kidney length: 11.7 cm The spleen has normal echogenicity. Splenic length: 10.4 cm, normal. No free intraperitoneal fluid identified. IMPRESSION: 1. No acute findings. No evidence of renal obstruction. 2. Hepatic steatosis. This document has been electronically signed by: Phan Frost MD on 01/24/2025 16:00:48
--- OUTSIDE RECORDS SUMMARY | 2025-01-23 11:58 | XMS_ITS | Clinical Summary ---
Author Organization [facility] Address [address] [place] [address] Care Team Providers Care Latex Foam Worker Name Role Phone Alba Anguiano MD Primary Care Provider [phone] Surgical History Surgery Date Site/Laterality Comments BREAST LUMPECTOMY 1998 PROCEDURE: HISTORICAL BREAST LUMPECTOMY HYSTERECTOMY PROCEDURE: [place] VAGINAL HYSTERECTOMY UTERUS 250 GM/< CHOLECYSTECTOMY PROCEDURE: HISTORICAL CHOLECYSTECTOMY ESOPHAGOGASTRODUODENOSCOPY 03/26/2022 PROCEDURE: [place] EGD TRANSORAL BIOPSY SINGLE/MULTIPLE; COMMENT: mild congestion, [...] Contro l Test (HGBA1C) 07/12/2022 COVID-19 Vaccine ( - 2023-2 5 season) 2024 Influenza Vaccine (Season Ended) [...] age to complete this topic Care Teams Latex Foam Worker Relationship Specialty Start Date End Date Alba Anguiano MD PCP - General Internal Medicine 11/05/21
== END 2025-01-23 11:06 | disposition home or self-care (01) ==
LOC: HO.US 11:05
PROVIDERS: PCP Internal Medicine; Visit Provider Internal Medicine
DX: K76.0 Fatty (change of) liver, not elsewhere classified (principal)
CPT/HCPCS: 76700

== ENCOUNTER → 2025-01-23 11:07 | Outpatient (BNV) | payer MEDICARE, SELFPAY | PROVIDERS: PCP Internal Medicine; Visit Provider Radiology Diagnostic Radiology | DX: K76.0 Fatty (change of) liver, not elsewhere classified (principal) | CPT/HCPCS: 76700 ==

== ENCOUNTER 2025-02-10 08:07 | Outpatient (AMB) | payer MEDICARE, SELFPAY ==
--- NOTE | 2025-02-10 08:10 | A.OFFVIS_ITS ---
Intake Visit Reasons: Right Micro Accompanied by: Self / Same As Patient Allergies atorvastatin Allergy (Verified 02/10/25 08:11) Rash Penicillins Allergy (Verified 02/10/25 08:11) Rash Sulfa (Sulfonamide Antibiotics) Allergy (Verified 02/10/25 08:11) Difficulty Breathing gabapentin Adverse Reaction (Severe, Verified 02/10/25 08:11) Unknown indomethacin Adverse Reaction (Verified 02/10/25 08:11) Unknown levofloxacin (From Levaquin) Adverse Reaction (Verified 02/10/25 08:11) Unknown 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 Arthritis Fibromyalgia Surgical History Hx of wisdom tooth extraction History of liver biopsy Hx of hysterectomy Hx of cholecystectomy Hx of colonoscopy History of lumpectomy of left breast History of esophagogastroduodenoscopy (EGD) Family History Father Liver cancer Sister Skin cancer Social History Household Members: Spouse Are you a primary chiropractic care to a significant other at home: No Do you presently have visiting nurse or other home services: No Alcohol intake: never Patient Tobacco Use Status: Never used Tobacco service: No Current occupational status: retired Office Procedures Vascular Office Procedure Details Details: Diagnosis: Right Leg varicose veins with inflammation Procedure: Right leg Microphlebectomy Anesthesia: Local Infiltration 10 cc, Tumescent: 0 cc. Varicose veins were marked in the standing position on the right leg and the pa tient was then placed in the supine position. The right lower extremity was prepared and draped to allow knee flexion in the sterile field. The patient had large superficial varicose veins with significant symptoms of pain. It was therefore determined to perform microphlebectomies of the clusters of varicose veins. The patient had bulging varicose veins which were previously marked in the standing position. A small stab incision was made longitudinally directly overlying the varicose vein in the calf and the varicose vein was grasped with a hemostat aided by a vein hook. It was then dissected as far proximally and distally as possible and avulsed. A total of 11 stab incisions were made and the procedure of stab phlebectomies was repeated 11 times. Hemostasis was checked and stab incision sites were closed with steri-strips and sterile dressing was given with gauze and krilex wrap followed by an hunter bandage. There were no complications and blood loss was minimal. Post-Op instructions were given and a follow-up appointment was recommended. [id number] - Phleb Veins, Extrem - up to 20 All charges added?: Procedure code (CPT) selection complete Assessment & Plan Assessment & Plan (1) Varicose veins of right lower extremity with inflammation: Comment: 02/10/2025 - right leg microphlebectomy Code(s): I83.11 - Varicose veins of right lower extremity with inflammation Category: Medical Plan: See op note Coding Level of Care Code Procedure Only Diagnoses Varicose veins of right lower extremity with inflammation I83.11 CPT Codes Details - Vascular 5: 46051 - Phleb Veins, Extrem - up to 20 ([id number])
--- OUTSIDE RECORDS SUMMARY | 2025-02-10 08:10 | XMS_ITS | Clinical Summary ---
Author Organization [facility] Address [address] [place] [address] Care Team Providers Care Flue Gas Analyst Name Role Phone Alba Anguiano MD Primary Care Provider [phone] Surgical History Surgery Date Site/Laterality Comments BREAST LUMPECTOMY 1998 PROCEDURE: HISTORICAL BREAST LUMPECTOMY HYSTERECTOMY PROCEDURE: [place] VAGINAL HYSTERECTOMY UTERUS 250 GM/< CHOLECYSTECTOMY PROCEDURE: HISTORICAL CHOLECYSTECTOMY ESOPHAGOGASTRODUODENOSCOPY 03/26/2022 PROCEDURE: DC EGD TRANSORAL BIOPSY SINGLE/MULTIPLE; COMMENT: mild congestion, [...] - 2023-2 5 season) 2024 Influenza Vaccine (#1) 2025 HIB Vaccines Aged Out No longer [...] age to complete this topic Care Teams Flue Gas Analyst Relationship Specialty Start Date End Date Alba Anguiano MD PCP - General Internal Medicine 11/05/21
--- OUTSIDE RECORDS SUMMARY | 2025-02-10 08:10 | XMS_ITS | Clinical Summary ---
Author Organization [facility] Address [address] [facility] [address] [place] [phone] Phone Care Team Providers Care Photography Intern Name Role Phone Alba Anguiano MD Primary Care Provide r Unavailable Allergies Active Allergy Reactions Criticality Noted Date Comments Rosuvastatin 03/17/2019 Gabapentin 03/17/2019 Indomethacin 03/17/2019 Levofloxacin 03/17/2019 Atorvastatin 03/17/2019 Penicillins 03/17/2019 Simvastatin 03/17/2019 Sulfa (Sulfonamide Antibiotics) 02/25 Medications TURMERIC ROOT EXTRACT ORAL Twice a day Activ e Medication-Free Text Melatonin 1 MG Capsule, Si-4 tabs Orally daily Active atenolol (TENORMIN) 25 MG tablet Orally daily Active zolpidem (AMBIEN) 5 MG tablet Orally Once daily Active acetaminophen (TYLENOL) 500 MG tablet 2 tablets as needed daily Active DULoxetine (CYMBALTA) 20 MG capsule Orally Once daily Active allopurinol (ZYLOPRIM) 100 MG tablet 1/2 tab Orally daily Active cholecalciferol , vitamin D3, (VITAMIN D3) 1,000 unit capsule Orally daily Active lisinopril-hydr oCHLOROthiazide (PRINZIDE,ZESTO RETIC) 20-25 mg per tablet Orally daily Active levothyroxine (SYNTHROID, LEVOTHROID) 88 MCG tablet Orally daily Active liothyronine (CYTOMEL) 5 MCG tablet Orally daily Active metFORMIN (GLUCOPHAGE-XR) 500 MG 24 hr tablet TK 2 TS PO BID 7 9 Active furosemide (LASIX) 20 MG tablet Take 20 mg by mouth. Active Active Problems Problem Noted Date Diagnosed Date Acute lower UTI 03/17/2019 Social History Tobacco Use Types Packs/Day Years Used Date Smoking Tobacco: Never Smokeless Tobacco: Never Alcohol Use Standard Drinks/Week Comments Not Currently 0 (1 standard drink = 0.6 oz pur e alcohol) Education Answer Date Recorded Are you interested in more education? Not on christopher e 11/21/2022 Are you concerned about learning? Not on file 11/21/2022 No 11/21/2022 No 11/21/2022 Digital Access Answer Date Recorded No 12/20/2022 No 12/20/2022 No 12/20/2022 Reliable internet access at home? Not on file 12/20/2022 Device with a working camera? Not on file Intimate Partner Violence Answer Date R ecorded Are you denied basic needs s uch as food, clothing, or medical care? No 08/17/2024 In the past 12 months have y ou been in a relationship with a person who hurts, threatens, or tries to control you? No 08/17/2024 Are you denied basic needs s uch as food, clothing, or medical care? No 08/17/2024 In the past 12 months have y ou been in a relationship with a person who hurts, threatens, or tries to control you? No 08/17/2024 Comments Unknown Sex and Gender Information Value Date Recorded Sex Assigned at Female 08/17/2024 2:12 PM EST Legal Sex Female 10:11 PM EDT Gender Identity Female 08/17/2024 2:12 PM EST Sexual Orientation Not on file Last Filed Vital Signs Vital Sign Reading Time Taken Comments Blood Pressure 134/75 08/17/2024 4:33 PM EST Pulse 83 08/17/2024 4:33 PM EST Temperature 36.5 C (97.7 F) 08/17/2024 4:33 PM EST Respiratory Rate 18 08/17/2024 4:33 PM EST Oxygen Saturation 96% 08/17/2024 4:33 PM EST Inhaled Oxygen Concentration - - Weight 83.9 kg (185 lb) 08/17/2024 2:10 PM EST Height 165.1 cm (5' 5 ) 08/17/2024 2:10 PM EST Body Mass Index 30.79 08/17/2024 2:10 PM EST Plan of Treatment Health Maintenance Due Date Last Done Comments Adult Td,Tdap Booster 1942 TSH LEVEL 1942 DEPRESSION SCREENING 1954 PNEUMOCOCCAL VACCINES (50+ years) (1 of 1 - PCV) 02/01/1992 ZOSTER VACCINES (1 of 2) 02/01/1992 OSTEOPOROSIS SCREENING INITI AL (ONE-TIME) 2007 RSV VACCINE (1 - 1-dose 75+ series) 2017 COVID-19 VACCINE (3 - 2023-2 5 season) 2024 09/22/2020, 08/31/2020 CREATININE LEVEL 08/17/2025 08/17/2024 POTASSIUM LEVEL 08/17/2025 08/17/2024 HEPATITIS A VACCINES Aged Out No long er eligible based on patient's age to complete this topic HIB VACCINES Aged Out No longer eligi ble based on patient's age to complete this topic MENINGOCOCCAL VACCINES (ACWY) Aged Out No longer eligible based on patient's age to complete this topic MENINGOCOCCAL VACCINES (B) Aged Out N o longer eligible based on patient's age to complete this topic Medical Devices Not on file Procedures Procedure Name Priority Date/Time Associated Diagnosis Comments BASIC METABOLIC PANEL STAT 08/17/2024 2:51 PM EST from Last 3 Months or Most Recently Relevant to Health Maintenance Results * (ABNORMAL) Basic metabolic panel (08/17/2024 2:51 PM EST) SODIUM 138 133 - 146 mmol/L [facility] CHLORIDE 100 96 - 108 mmol/L [facility] POTASSIUM 3.8 3.3 - 5.1 mmol/L [facility] CO2 29 21 - 35 mmol/L [facility] BUN 18 6 - 19 mg/dL [facility] CREATININE 0.80 0.5 - 1.5 mg/dL [facility] GLUCOSE 116(H) 70 - 99 mg/dL [facility] CALCIUM 10.2 8.4 - 10.3 mg/dL [facility] EGFR 74 >59 mL/min/1.7 3m2 [facility] Comment:Estimated glomerular filtration rate calculated using the CKD-EPI refit equation. ANION GAP 13 10 - 20 mmol/L [facility] Blood 08/17/2024 2:51 PM EST 08/17/2024 2:53 PM EST Kiara Cruz PA-C LAB BLOOD ORDERABLES Final Result Performing Organization Address City/State/[facility] Co de Phone Number [facility] [address] [place] [address] from Last 3 Months or Most Recently Relevant to Health Maintenance Insurance [facility] MEDICARE PPO BLUE REPLACEMENT [facility] MEDICARE PPO BLUE REPLACEMENT [facility] MEDICARE PPO BLUE REPLACEMENT [facility] MEDICARE PPO BLUE REPLACEMENT [facility] MEDICARE PPO BLUE REPLACEMENT Care Teams Photography Intern Relationship Specialty Start Date End Date Alba Anguiano MD PCP - General 07/30/17 Additional Source Comments The information contained in this document represents components of the legal health record. It is not the complete legal health record.[facility]
== END 2025-02-10 10:08 | disposition home or self-care (01) ==
LOC: HO.HVS 08:07
PROVIDERS: PCP Internal Medicine; Visit Provider Surgery Vascular Surgery
DX: I83.11 Varicose veins of right lower extremity with inflammation (principal)
CPT/HCPCS: 37765

== ENCOUNTER → 2025-02-10 08:07 | Outpatient (BNVA) | payer MEDICARE, SELFPAY | PROVIDERS: PCP Internal Medicine; Visit Provider Surgery Vascular Surgery | DX: I83.11 Varicose veins of right lower extremity with inflammation (principal) | CPT/HCPCS: 37765; J2003 ==

== ENCOUNTER 2025-02-23 08:50 | Outpatient (AMB) | payer MEDICARE, SELFPAY ==
[2025-02-23 08:59] VITALS: BMI 30.8
--- NOTE | 2025-02-23 08:59 | A.OFFVIS_ITS ---
Vital Signs 02/23/25 08:59 Height 5 ft 5 in Weight 185 lb BMI 30.8 Intake Visit Reasons: 2 week follow up Right Micro 02/10/25 Intake Note: 2 week follow up for Right LE Micro 02/10/25, Has some bruising and steri strips still on incisions. Junior Graphic Designer Required: No Accompanied by: Son Allergies atorvastatin Allergy (Verified 02/23/25 09:05) Rash Penicillins Allergy (Verified 02/23/25 09:05) Rash Sulfa (Sulfonamide Antibiotics) Allergy (Verified 02/23/25 09:05) Difficulty Breathing gabapentin Adverse Reaction (Severe, Verified 02/23/25 09:05) Unknown indomethacin Adverse Reaction (Verified 02/23/25 09:05) Unknown levofloxacin (From Levaquin) Adverse Reaction (Verified 02/23/25 09:05) Unknown HPI HPI 2 week follow up Right Micro 02/10/25: Details: The patient is an 85-year-old female presenting for follow-up after a right leg microphlebectomy. She reports that the procedure was not as painful as previous medical interventions, except for the lidocaine injections, which she described as feeling like bee stings. The patient has a history of fibromyalgia, which complicates her recovery, as it takes longer for her muscles and skin to heal. The patient has been able to go up the stairs post-procedure, although her knee was previously a significant source of discomfort. She has no other postprocedure issues. She reports she is doing fairly well. Now presents for routine postprocedure follow-up Regarding lymphedema, the patient is advised to use compression stockings as her legs are not severely swollen, and she does not require a lymphedema pump. She has previously tried compression socks but found them difficult to use due to swelling and fibromyalgia-related pain. 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 Arthritis Fibromyalgia Surgical History Hx of wisdom tooth extraction History of liver biopsy Hx of hysterectomy Hx of cholecystectomy Hx of colonoscopy History of lumpectomy of left breast History of esophagogastroduodenoscopy (EGD) Family History Father Liver cancer Sister Skin cancer Social History Household Members: Spouse Are you a primary care director to a significant other at home: No Do you presently have visiting nurse or other home services: No Alcohol intake: never Patient Tobacco Use Status: Never used Tobacco service: No Current occupational status: retired Review of Systems Const All systems reviewed & are unremarkable except as noted in HPI and below Reports no additional complaints ENT Reports Normal hearing present Card Denies chest pain, Denies chest pain at rest, Denies chest pain with activity and Denies pedal edema Resp Denies cough GI Denies abdominal pain Musc Denies abnormal gait, Denies muscle cramps and Denies radiating pain into limb Skin/Breast Denies skin ulcer and Denies wounds Neuro Reports Normal hearing present and Denies abnormal gait Psych Reports no additional complaints Physical Exam Vital Signs: BMI result Body Mass Index 30.8 Const General: cooperative, healthy appearing and comfortable Orientation/consciousness: oriented to person, oriented to place and oriented to time HEENT Head: Yes normal to inspection Neck Neck: Yes normal visual inspection Carotids: no bruits Chest Chest palpation & inspection: normal inspection of the chest Resp Effort & Inspection: normal respiratory effort and able to speak in complete sentences Auscultation: clear to auscultation bilaterally, no crackles, no rales, no rhonchi and no wheezes Cardio Rate: regular rate Rhythm: regular rhythm Heart sounds: S1 normal heart sound present and S2 normal heart sound present Bruits: no carotid bruits Peripheral pulses: Peripheral pulses 2+ throughout GI Inspection: Yes normal to inspection Skin Wounds: no wounds Hair: normal Neuro General: oriented to person, oriented to place and oriented to time Cranial nerves: Yes CN's II-XII intact bilaterally and Yes Normal hearing pre sent Cognition (Neuro): normal cognition Motor exam (neuro): 5/5 motor strength present throughout Extrem Other: venous exam: +1 edema and spider telangiectasias General: No clubbing, No cyanosis and Yes edema Psych Appearance: grossly normal Mental Status: mental status grossly normal Speech and movement: Normal speech and movement present Assessment & Plan Assessment & Plan (1) Varicose veins of right lower extremity with inflammation: Comment: 02/10/2025 - right leg microphlebectomy Code(s): I83.11 - Varicose veins of right lower extremity with inflammation Category: Medical Plan: The patient has done extremely well with all venous treatments. Patient's may often experience postprocedure phlebitic episodes and I have discussed with the patient use of warm compresses and NSAIDS if tolerated for pain discomfort. In addition, I have discussed continued conservative measures including use of compression, leg elevation, and exercise. The patient was also given an information sheet regarding appropriate use of compression stockings and future purchases. Thank you for allowing us to care for your patient with venous disease. Coding Level of Care Code Est Pt Level 3 (53652) Diagnoses Varicose veins of right lower extremity with inflammation I83.11
--- OUTSIDE RECORDS SUMMARY | 2025-02-23 09:09 | XMS_ITS | Clinical Summary ---
Author Organization [facility] Address [address] [place] [address] Care Team Providers Care Medical Care Evaluation Specialist Name Role Phone Alba Anguiano MD Primary Care Provider Surgical History Surgery Date Site/Laterality Comments BREAST LUMPECTOMY 1998 PROCEDURE: HISTORICAL BREAST LUMPECTOMY HYSTERECTOMY PROCEDURE: [place] VAGINAL HYSTERECTOMY UTERUS 250 GM/< CHOLECYSTECTOMY PROCEDURE: HISTORICAL CHOLECYSTECTOMY ESOPHAGOGASTRODUODENOSCOPY 03/26/2022 PROCEDURE: MO EGD TRANSORAL BIOPSY SINGLE/MULTIPLE; COMMENT: mild congestion, [...] DX:Hist ory of breast cancer Fibromyalgia DX:Fibromyalgia PTEERS (nonalcoholic steatohepatitis) DX:PETERS (nonalcoholic steatohepatitis) Irritable bowel [...] series) 2017 Cholesterol Screening (Lipid Panel) 07/06/2022 Falls Risk Assessment 07/06/2022 Osteoporosis Screening (Bone Density Screening) 07/06/2022 Social Influencers of Health Screening 07/06/2022 Diabetes: Annual Urine Albumin-Creatinine Ratio (uACR) 07/12/2022 Diabetes: Blood Sugar Contro l Test (HGBA1C) 07/12/2022 COVID-19 Vaccine ( - 2023-2 5 season) 2024 Depression Screening 07/27/2024 Influenza Vaccine (#1) 2025 HIB Vaccines Aged [...] age to complete this topic Care Teams Medical Care Evaluation Specialist Relationship Specialty Start Date End Date Alba Anguiano MD PCP - General Internal Medicine 11/05/21
--- OUTSIDE RECORDS SUMMARY | 2025-02-23 09:09 | XMS_ITS | Clinical Summary ---
Author Organization [facility] Address [address] [facility] [address] [place] [phone] Phone Care Team Providers Care Tube Pusher Name Role Phone Alba Anguiano MD Primary Care Provide r Allergies Active Allergy Reactions Criticality Noted Date [...] EST) SODIUM 138 133 - 146 mmol/L [facility] CHLORIDE 100 96 - 108 mmol/L [facility] POTASSIUM 3.8 3.3 - 5.1 mmol/L [facility] CO2 29 21 - 35 mmol/L [facility] BUN 18 6 - 19 mg/dL [facility] CREATININE 0.80 0.5 - 1.5 mg/dL [facility] GLUCOSE 116(H) 70 - 99 mg/dL [facility] CALCIUM 10.2 8.4 - 10.3 mg/dL [facility] EGFR 74 >59 mL/min/1.7 3m2 [facility] Comment:Estimated glomerular filtration rate calculated using the CKD-EPI refit equation. ANION GAP 13 10 - 20 mmol/L [facility] Blood 08/17/2024 2:51 PM EST 08/17/2024 2:53 PM EST Kiara Cruz PA-C LAB BLOOD ORDERABLES Final Result [facility] [address] [place] [address] from Last 3 Months or Most Recently Relevant to Health Maintenance Insurance [facility] MEDICARE PPO BLUE REPLACEMENT [facility] MEDICARE PPO BLUE REPLACEMENT [facility] MEDICARE PPO BLUE REPLACEMENT Care Teams Tube Pusher Relationship Specialty Start Date End Date Alba Anguiano MD [address] [place] [id number] PCP - General 07/30/17 Additional Source Comments The information contained in this document represents components of the legal health record. It is not the complete legal health record.[facility]
== END 2025-02-23 09:25 | disposition home or self-care (01) ==
LOC: HO.HVS 08:51
PROVIDERS: PCP Internal Medicine; Visit Provider Surgery Vascular Surgery
DX: I83.11 Varicose veins of right lower extremity with inflammation (principal)
CPT/HCPCS: 99213

== ENCOUNTER → 2025-02-23 08:50 | Outpatient (BNVA) | payer MEDICARE, SELFPAY | PROVIDERS: PCP Internal Medicine; Visit Provider Surgery Vascular Surgery | DX: I83.11 Varicose veins of right lower extremity with inflammation (principal) | CPT/HCPCS: 99212 ==

== ENCOUNTER 2025-03-06 12:44 | Outpatient (AMB) | payer MEDICARE, SELFPAY ==
--- OUTSIDE RECORDS SUMMARY | 2025-03-06 12:46 | XMS_ITS | Clinical Summary ---
Author Organization [facility] Address [address] [place] [phone] Phone Care Team Providers Care Chute Man Name Role Phone Alba Anguiano MD Primary [...] EST) SODIUM 138 133 - 146 mmol/L [facility] CHLORIDE 100 96 - 108 mmol/L [facility] POTASSIUM 3.8 3.3 - 5.1 mmol/L [facility] CO2 29 21 - 35 mmol/L [facility] BUN 18 6 - 19 mg/dL [facility] CREATININE 0.80 0.5 - 1.5 mg/dL [facility] GLUCOSE 116(H) 70 - 99 mg/dL [facility] CALCIUM 10.2 8.4 - 10.3 mg/dL [facility] EGFR 74 >59 mL/min/1.7 3m2 [facility] Comment:Estimated glomerular filtration rate calculated using the CKD-EPI refit equation. ANION GAP 13 10 - 20 mmol/L [facility] Blood 08/17/2024 2:51 PM EST 08/17/2024 2:53 PM EST Kiara Cruz PA-C LAB BLOOD ORDERABLES Final Result [facility] [address] [place] [address] from Last 3 Months or Most Recently Relevant to Health Maintenance Insurance [facility] MEDICARE PPO BLUE REPLACEMENT [facility] MEDICARE PPO BLUE REPLACEMENT [facility] MEDICARE PPO BLUE REPLACEMENT Care Teams Chute Man Relationship Specialty Start Date End Date Alba Anguiano MD [address] [place] [id number] PCP - General 07/30/17 Additional Source Comments The information contained in this document represents components of the legal health record. It is not the complete legal health record.[facility]
--- OUTSIDE RECORDS SUMMARY | 2025-03-06 12:46 | XMS_ITS | Clinical Summary ---
Author Organization [facility] Address [address] [place] [address] Care Team Providers Care Senior Clinical Data Coordinator Name Role Phone Alba Anguiano MD Primary Care Provider Surgical History Surgery Date Site/Laterality Comments BREAST LUMPECTOMY 1998 PROCEDURE: HISTORICAL BREAST LUMPECTOMY HYSTERECTOMY PROCEDURE: OR VAGINAL HYSTERECTOMY UTERUS 250 GM/< CHOLECYSTECTOMY PROCEDURE: HISTORICAL CHOLECYSTECTOMY ESOPHAGOGASTRODUODENOSCOPY 03/26/2022 PROCEDURE: OR EGD TRANSORAL BIOPSY SINGLE/MULTIPLE; COMMENT: mild congestion, [...] age to complete this topic Care Teams Senior Clinical Data Coordinator Relationship Specialty Start Date End Date Alba Anguiano MD PCP - General Internal Medicine 11/05/21
--- NOTE | 2025-03-06 12:59 | A.OFFVIS_ITS ---
Vital Signs 03/06/25 13:04 Height 5 ft 4 in Weight 182 lb 15.739 oz BMI 31.4 BP 131/57 L Blood Pressure Location Lt brachial Position Sitting Pulse 68 Intake Visit Reasons: US results Intake Note: Kayy presents in the office as a follow up for results. CC: states that last month she had her varicous veins taken care of February 10! She states that she had an US and she is here for results. She is having the same symptoms as her last visit. Gas Main Fitter Required: No Allergies atorvastatin Allergy (Verified 03/06/25 13:05) Rash Penicillins Allergy (Verified 03/06/25 13:05) Rash Sulfa (Sulfonamide Antibiotics) Allergy (Verified 03/06/25 13:05) Difficulty Breathing gabapentin Adverse Reaction (Severe, Verified 03/06/25 13:05) Unknown indomethacin Adverse Reaction (Verified 03/06/25 13:05) Unknown levofloxacin (From Levaquin) Adverse Reaction (Verified 03/06/25 13:05) Unknown HPI Comments Details: 84 y.o F with PMH of fatty liver/PETERS thought to be secondary to tamoxifen initially and now likely from metabolic factors who is here for a second opinion on PETERS/cirrhosis. Reports has had lonstanding hx of fatty liver. Used to be under care of Dr Morley and then later Ramón Alvarez. More recently has been diagnosed with possible cirrhosis for which she is here to seek another opinion. Used to be on a good regimented high protein diet but around 6-8 months ago reports increased fatigue, lack of energy and interest in most of her daily activities. Slipped off the diet. Had sudden weight gain of almost 20 lbs in 2 months leading to poor DM control and possibly cirrhosis on imaging. With this, now more recently has also developed fatigue and increased overall body aches with low energy. Reports fullness in abd mike after any oral intake in 5-10 mins. With nausea. No burping or belching. BMs fluctuate between formed and diarrhea. No blood in stool. On pantoprazole 40 once daily. Also on duloxetine 20 for fibromyalgia - recently increased to 40. 03/2023: EGD esophageal ulcers 10/2023: liver with nodular contour Father: liver cancer. - unk cause. 07/15/24: Here for follow up. Labs reviewed, neg for iron overload, autoimmune hepatitis, celiac. Reports continued disinterest and fatigue even to do daily tasks. PHQ-9 score is 19 in office today. PCP visit pending. In terms of GI sx, continues to have mid epigastric pain and fullness sensation. Worse on sitting down. Better on standing. Barium swallow records available now and note made of lower esophageal narrowing with 13 mm tablet not able to go through. Pt already amauri for EGD in 4 weeks. Today, pt also reports worsening R sided pain and tenderness, unable to lay on that side at night. Swelling like sensation in that area. In terms of non-iron deficiency anemia, seeing Hematology and started on B12 and folate supplementation. EGD 08/23/24: * Normal esophagus (biopsy) * Hiatal hernia * Gastritis (biopsy) * Duodenitis (biopsy)?? A. Duodenum, biopsy: Duodenal mucosa within normal limits. B. Stomach, antrum lesser curvature, biopsy: Antral-type mucosa with mild chronic inactive inflammation; no Helicobacter organisms seen. C. Stomach, antrum greater curvature, biopsy: Antral-type mucosa with mild chronic inactive inflammation; no Helicobacter organisms seen. D. Stomach, incisura, biopsy: Oxyntic mucosa with mild chronic inactive inflammation; no Helicobacter organisms seen. E. Stomach, body lesser curvature, biopsy: Oxyntic mucosa with mild chronic inactive inflammation; no Helicobacter organisms seen. F. Stomach, body greater curvature, biopsy: Oxyntic mucosa within normal limits; no Helicobacter organisms seen. G. Esophagus, lower, biopsy: Active esophagitis (maximum eosinophil count 2 per high powered field). H. Esophagus, middle, biopsy: Active esophagitis (maximum eosinophil count 5 per high powered field) 09/07/24: Here for post EGD follow up. Reports persistent abd pain and lack of appetite. Bx results reviewed with the pt. Reassured that no dysplasia noted in stomach bx. In addition no signs of portal HTN noted such as PHG or varices. Taking rabeprazole 20 but causing more nausea and vomiting by the late afternoon. Wanting to go back to omeprazole. 12/07/24: Routine 3m follow up. Reports side effects to mirtazipine - sleepy during daytime, mood changes, swelling in legs and hands. Stopped mirtazipine a month ago. Otherwise abd pain has been a lot better with omeprazole. Swallowing was better but recently had oral surgery with removal of teeth so still sore in mouth and sticking to liquids. Also reports leg soreness and pain bilaterally. Not in joints. Has varicose veins on exam. 03/06/25: Here for folllow up. Reports not much difference since the varicose veins ablation. IN terms of RUQ pain, still there but tolerable. Prev poor adverse reaction to mirtazipine. Also reports bad reaction to gabapentin. Has not heard re EGD booking yet. 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 Arthritis Fibromyalgia Surgical History (Updated 03/06/25 @ 13:06 by FATIMAH Olivo) Hx of varicose vein ligation Hx of wisdom tooth extraction History of liver biopsy Hx of hysterectomy Hx of cholecystectomy Hx of colonoscopy History of lumpectomy of left breast History of esophagogastroduodenoscopy (EGD) Family History Father Liver cancer Sister Skin cancer Social History Household Members: Spouse Are you a primary health care assistant to a significant other at home: No Do you presently have visiting nurse or other home services: No Alcohol intake: never Patient Tobacco Use Status: Never used Tobacco service: No Current occupational status: retired Review of Systems Const All systems reviewed & are unremarkable except as noted in HPI and below Physical Exam Vital Signs: Last Vital Signs Pulse 68 03/06/25 13:04 BP 131/57 L 03/06/25 13:04 BMI result Body Mass Index 31.4 Gen Appear: NAD, HEENT: No scleral icterus, no bitemporal wasting noted Abd: soft, nontender, nondistended, Ext: ++ peripheral edema bilaterally Neuro: A/Ox3, no asterixis Assessment & Plan Assessment & Plan (1) Gastritis and duodenitis: Code(s): K29.90 - Gastroduodenitis, unspecified, without bleeding Category: Medical (2) Postprandial RUQ pain: Code(s): R10.11 - Right upper quadrant pain Category: Medical (3) Epigastric pain: Code(s): R10.13 - Epigastric pain Category: Medical (4) Early satiety: Code(s): R68.81 - Early satiety Category: Medical Plan # Gastritis: # Dysphagia: Gastritis without H pylori. Due for repeat EGD with empiric dilation before referring to HREM. Plan: - Omeprazole 20 to once daily - Repeat EGD with empiric dilation - if no response to this, next step will be HREM #MAFLD/PETERS Likely has advanced fibrosis based on elastography 2023. No CSPH so far based on platelets and EGD findings. Plan: - US Abd due Jul 2025 - EGD booked for tmrw Follow up after egd Coding Level of Care Code Est Pt Level 4 (32049) Diagnoses Gastritis and duodenitis K29.90 Postprandial RUQ pain R10.11 Epigastric pain R10.13 Early satiety R68.81
[2025-03-06 13:04] VITALS: BP 131/57; PULSE 68; BMI 31.4
== END 2025-03-06 13:41 | disposition home or self-care (01) ==
PROVIDERS: PCP Internal Medicine; Visit Provider Internal Medicine
DX: K29.90 Gastroduodenitis, unspecified, without bleeding (principal); R10.11 Right upper quadrant pain; R10.13 Epigastric pain; R68.81 Early satiety
CPT/HCPCS: 99214

== ENCOUNTER → 2025-03-06 12:44 | Outpatient (BNVA) | payer MEDICARE, SELFPAY ==
--- NOTE | 2025-03-07 07:54 | HO.ANESPROP2 ---
Documented by User: Aubrie Melara NP 03/07/25 07:56 HPI - Anesthesia Eval Consult details Narrative: 85 yr old female for EGD Liver cirrhosis 2/2 to PETERS, normal platelets Type 2 DM: on metformin s/p EGD 07/2024 with TIVA PMFSH Active Problems Active Problems: All Active Problems Varicose veins of right lower extremity with inflammation (Acute) Varicose veins of bilateral lower extremities with pain (Acute) Gastritis and duodenitis (Acute) Postprandial RUQ pain (Acute) Esophageal stricture (Acute) Early satiety (Acute) Epigastric pain (Acute) Normochromic normocytic anemia (Acute) Normocytic anemia, not due to blood loss (Acute) Dyspepsia (Acute) Fatty liver (Acute) Past Medical History Medical History Gout Thyroid disease High cholesterol High blood pressure Diabetes mellitus 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 Arthritis Fibromyalgia Family History Family History Father Liver cancer Sister Skin cancer Family history of problems with anesthesia: No Surgical History Surgical History Hx of varicose vein ligation Hx of wisdom tooth extraction History of liver biopsy Hx of hysterectomy Hx of cholecystectomy Hx of colonoscopy History of lumpectomy of left breast History of esophagogastroduodenoscopy (EGD) History of Problems with Anesthesia: Yes Social History Social History Household Members: Spouse Are you a primary critical care unit manager to a significant other at home: No Do you presently have visiting nurse or other home services: No Alcohol intake: never Patient Tobacco Use Status: Never used Tobacco Use of substances other than those prescribed or required for medical reasons: No Have you been hit, kicked, punched, or otherwise hurt by someone within the past year? If so, by whom?: No Are you DNR?: No Advance Directives: No Advance Directives Information Provided: Yes Patient : No Poor oral hygiene: Yes service: No Current occupational status: retired Meds Allergies Allergy/AdvReac Type Severity Reaction Status Date / Time atorvastatin Allergy Rash Verified 03/07/25 10:29 Penicillins Allergy Rash Verified 03/07/25 10:29 Sulfa (Sulfonamide Allergy Difficulty Verified 03/07/25 10:29 Antibiotics) Breathing gabapentin AdvReac Severe Unknown Verified 03/07/25 10:29 indomethacin AdvReac Unknown Verified 03/07/25 10:29 levofloxacin (From Levaquin) AdvReac Unknown Verified 03/07/25 10:29 Home Medications ?Medication ?Instructions ?Recorded ?Confirmed ?Last Taken ?Type allopurinol 100 mg tablet 100 mg PO DAILY 03/09/24 03/07/25 Unknown History atenolol 25 mg tablet 25 mg PO DAILY 03/09/24 03/07/25 Unknown History duloxetine 20 mg capsule,delayed 40 mg PO BID 03/09/24 03/07/25 Unknown History release liothyronine 5 mcg tablet 5 mcg PO DAILY 03/09/24 03/07/25 Unknown History lisinopril 20 1 tab PO DAILY 03/09/24 03/07/25 Unknown History mg-hydrochlorothiazide 25 mg tablet rosuvastatin 5 mg tablet 5 mg PO DAILY 03/09/24 03/07/25 Unknown History ezetimibe 10 mg tablet 10 mg PO DAILY 04/21/24 03/07/25 Unknown History furosemide 20 mg tablet 20 mg PO DAILY PRN swelling 04/21/24 03/07/25 Unknown History coenzyme Q10 100 mg capsule 100 mg PO DAILY 12/07/24 03/07/25 Unknown History (CoQ-10) cranberry 500 mg capsule 500 mg PO BID 12/07/24 03/07/25 Unknown History levothyroxine 88 mcg tablet 88 mcg PO DAILY 03/06/25 03/07/25 Unknown History metformin 500 mg tablet,extended 500 mg PO BID 03/06/25 03/07/25 Unknown History release 24 hr zolpidem 5 mg tablet 5 - 10 mg PO BEDTIME PRN insomnia 03/06/25 03/07/25 Unknown History Assessment and Plan Final Anesthetic Review Family History of Problems with Anesthesia: No History of Problems with Anesthesia: Yes Documented by User: Chapo Estrada MD 03/07/25 12:12 [facility] Past Medical History Medical History Gout Thyroid disease High cholesterol High blood pressure Diabetes mellitus 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 Arthritis Fibromyalgia Family History Family History Father Liver cancer Sister Skin cancer Surgical History Surgical History Hx of varicose vein ligation Hx of wisdom tooth extraction History of liver biopsy Hx of hysterectomy Hx of cholecystectomy Hx of colonoscopy History of lumpectomy of left breast History of esophagogastroduodenoscopy (EGD) Social History Social History Household Members: Spouse Are you a primary critical care unit manager to a significant other at home: No Do you presently have visiting nurse or other home services: No Alcohol intake: never Patient Tobacco Use Status: Never used Tobacco Use of substances other than those prescribed or required for medical reasons: No Have you been hit, kicked, punched, or otherwise hurt by someone within the past year? If so, by whom?: No Are you DNR?: No Advance Directives: No Advance Directives Information Provided: Yes Patient : No Poor oral hygiene: Yes service: No Current occupational status: retired Meds Allergies Allergy/AdvReac Type Severity Reaction Status Date / Time atorvastatin Allergy Rash Verified 03/07/25 10:29 Penicillins Allergy Rash Verified 03/07/25 10:29 Sulfa (Sulfonamide Allergy Difficulty Verified 03/07/25 10:29 Antibiotics) Breathing gabapentin AdvReac Severe Unknown Verified 03/07/25 10:29 indomethacin AdvReac Unknown Verified 03/07/25 10:29 levofloxacin (From Levaquin) AdvReac Unknown Verified 03/07/25 10:29 Home Medications ?Medication ?Instructions ?Recorded ?Confirmed ?Last Taken ?Type allopurinol 100 mg tablet 100 mg PO DAILY 03/09/24 03/07/25 Unknown History atenolol 25 mg tablet 25 mg PO DAILY 03/09/24 03/07/25 Unknown History duloxetine 20 mg capsule,delayed 40 mg PO BID 03/09/24 03/07/25 Unknown History release liothyronine 5 mcg tablet 5 mcg PO DAILY 03/09/24 03/07/25 Unknown History lisinopril 20 1 tab PO DAILY 03/09/24 03/07/25 Unknown History mg-hydrochlorothiazide 25 mg tablet rosuvastatin 5 mg tablet 5 mg PO DAILY 03/09/24 03/07/25 Unknown History ezetimibe 10 mg tablet 10 mg PO DAILY 04/21/24 03/07/25 Unknown History furosemide 20 mg tablet 20 mg PO DAILY PRN swelling 04/21/24 03/07/25 Unknown History coenzyme Q10 100 mg capsule 100 mg PO DAILY 12/07/24 03/07/25 Unknown History (CoQ-10) cranberry 500 mg capsule 500 mg PO BID 12/07/24 03/07/25 Unknown History levothyroxine 88 mcg tablet 88 mcg PO DAILY 03/06/25 03/07/25 Unknown History metformin 500 mg tablet,extended 500 mg PO BID 03/06/25 03/07/25 Unknown History release 24 hr zolpidem 5 mg tablet 5 - 10 mg PO BEDTIME PRN insomnia 03/06/25 03/07/25 Unknown History Exam Exam Date and Time: 03/07/2025 Airway Mallampati Class: II TM Dist: >3cm Neck ROM: Full Denture: Upper Loose/Missing/Broken Teeth: Yes (lower jaw) Heart: rrr Lungs: cta Assessment and Plan Assessment Anesthesia Assessment: Anesthesia Plan Discussed Final Anesthetic Review NPO: Yes ASA Class: II Final Preanesthetic Review: No Changes in Pt Med Stat, Meds/Allgs Chart Reviewed, Consent Obtained/Reviewed and Anes Risks/Benef Reviewed Patient Risk: Low Procedure Risk: Low Anesthetic Plan Anesthetic Plan: MAC: Disposition: Standard PACU
== END ==
PROVIDERS: PCP Internal Medicine; Visit Provider Internal Medicine
DX: Z71.2 Person consulting for explanation of examination or test findings (principal); R10.11 Right upper quadrant pain; R10.13 Epigastric pain; K29.60 Other gastritis without bleeding; R68.81 Early satiety; K75.81 Nonalcoholic steatohepatitis (NASH)
CPT/HCPCS: 99212

== ENCOUNTER 2025-03-07 09:25 | Day surgery (SDC) | payer MEDICARE, SELFPAY ==
--- NOTE | 2025-03-07 10:23 | MHC.SHP ---
Pre-Procedural Eval Section A - 24 Hr Update-Section A only Date of Service: 03/07/25 The patient is an INPATIENT: No The patient has been examined within 24 hours of the surgical procedure. The History & Physical has been completed within 30 days and I have reviewed it.: Yes Section B - Complete if H&P > 30 days Chief Complaint: Dysphagia, unspecified Allergies: Allergies Allergy/AdvReac Type Severity Reaction Status Date / Time atorvastatin Allergy Rash Verified 03/06/25 13:05 Penicillins Allergy Rash Verified 03/06/25 13:05 Sulfa (Sulfonamide Allergy Difficulty Verified 03/06/25 13:05 Antibiotics) Breathing gabapentin AdvReac Severe Unknown Verified 03/06/25 13:05 indomethacin AdvReac Unknown Verified 03/06/25 13:05 levofloxacin (From Levaquin) AdvReac Unknown Verified 03/06/25 13:05 Plan Diagnosis/Plan: Unchanged I have reviewed the history and physical and performed a pertinent physical examination on my patient. No changes have occurred unless specified. Time Spent With Patient Time: Total time managing care of this patient today ____ minutes.
[2025-03-07 10:42] VITALS: BP 138/67; PULSE 70; RESP 14; TEMP 36.7; O2SAT 96; BMI 30.8
[2025-03-07 11:02] LABS: Glucose, Whole Blood 127 mg/dL (60-115)
[2025-03-07 12:37] VITALS: BP 108/57; PULSE 69; RESP 18; TEMP 36.6; O2SAT 91
--- NOTE | 2025-03-07 12:40 | P.OP_ITS ---
Operative Note Operative Note Date of Service: 03/07/25 Narrative: Procedure: Esophagogastroduodenoscopy Endoscopist: Rand Beverly MD Indication: Dysphagia, liver disease Anesthesia Provider: Dr Estrada Anesthesia Type: MAC ?? EGD Procedure:?? The procedure, indications, preparation and potential complications were reviewed with the patient, who indicated understanding and gave written informed consent to proceed. A physical exam was performed. The endoscope was introduced through the mouth, and advanced to the second part of duodenum. The mucosa was carefully examined on slow withdrawal of the endoscope. The patient tolerated the procedure well. There were no immediate complications.? ? EGD Findings:? * Esophagus:? Normal mucosa noted in the entire esophagus. The Z line was at 38 cm. No esophageal varices were noted. * Stomach:? Mild congestion and erythema in the antrum, remaining mucosa was normal in the stomach. Retroflexion was from the cardia. No stigmata of portal hypertension noted such as varices or gastropathy. Cold forceps biopsies were taken from the antrum. * Duodenum:? Normal mucosa was noted in the whole of the examined duodenum. Additional intervention: Soft tip Savary wire was introduced through the biopsy channel of the gastroscope and advanced to the antrum. ?The gastroscope was then backed out. ?Savary Galilea bougie was advanced over the guidewire and the esophagus was dilated to 18 mm without resistance felt. ?On relook, heme and tear was noted just at GE junction. ? ? EGD Impressions:? * Mild GE junction stricture (dilation) * Normal esophageal mucosa * Antral gastritis (biopsy) * Normal duodenum ?? Recommendations:?? * Follow biopsy results. Our office will call or send a letter with results within 7-10 days. * Continue PPI therapy. * Avoid NSAIDs. * If no response to dilation today, would recommend HREM as the next step in evaluation. Above has been reviewed with the patient.
[2025-03-07 12:52] VITALS: BP 126/58; PULSE 64; RESP 18; TEMP 36.7; O2SAT 96
== END 2025-03-07 13:16 | disposition home or self-care (01) ==
PROVIDERS: PCP Internal Medicine; Visit Provider Internal Medicine
PROC: (CPT 43248; principal; 2025-03-07 11:40)
DX: R13.10 Dysphagia, unspecified (principal); K22.2 Esophageal obstruction; K29.60 Other gastritis without bleeding; K74.69 Other cirrhosis of liver; K75.81 Nonalcoholic steatohepatitis (NASH); D64.9 Anemia, unspecified; R68.81 Early satiety; E11.9 Type 2 diabetes mellitus without complications; E78.00 Pure hypercholesterolemia, unspecified; E03.9 Hypothyroidism, unspecified; Z79.02 Long term (current) use of antithrombotics/antiplatelets; Z79.84 Long term (current) use of oral hypoglycemic drugs; Z79.899 Other long term (current) drug therapy
CPT/HCPCS: 43248; 43239; 82947; 88305; 88342; C1769; J2003; J2405; J2704; J3010

== ENCOUNTER → 2025-03-07 09:25 | Outpatient (BNV) | payer MEDICARE, SELFPAY | PROVIDERS: PCP Internal Medicine; Visit Provider Internal Medicine | DX: R13.10 Dysphagia, unspecified (principal); K29.70 Gastritis, unspecified, without bleeding; K22.2 Esophageal obstruction | CPT/HCPCS: 43239; 43248 ==

== ENCOUNTER 2025-04-11 10:43 | Outpatient (AMB) | payer MEDICARE, SELFPAY ==
--- NOTE | 2025-04-11 10:45 | MHC.OFFVIS ---
Vital Signs 04/11/25 10:57 Height 5 ft 5 in Weight 183 lb BMI 30.4 BP 138/63 Blood Pressure Location Lt brachial Position Sitting Pulse 76 Intake Visit Reasons: bx consult, right breast Intake Note: Patient is seen in office for biopsy CONSULT, following right breast mass. 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 Beard) with subsequent chest radiation presenting. She is now presenting for initial evaluation after abnormal mammogram findings of the right breast. Her latest diagnostic mammogram and ultrasound performed on 03/21/2025 revealed a right breast density in the 8-9 o'clock position, 9 cm from the nipple. By ultrasound this was hypoechoic measuring 11 x 11 x 13 mm, solid felt to be suspicious for malignancy (BI-RADS 4). She is scheduled for an ultrasound-guided core biopsy at [facility] on 04/17/2025. She has been unable to feel anything in the right breast and certainly denies any skin changes, nipple discharge, or enlarged lymph nodes. She reports some breast pain, especially in the right outer quadrant, which she attributes to fibromyalgia. She does not know when menarche or menopause occurred due to irregular menstrual cycles. She is . She has no history of OCP use. She denies family history of breast cancer but has family history of colon cancer. When she last had breast cancer, she had a severe reaction to tamoxifen. 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 Arthritis Fibromyalgia Surgical History Hx of varicose vein ligation Hx of wisdom tooth extraction History of liver biopsy Hx of hysterectomy Hx of cholecystectomy Hx of colonoscopy History of lumpectomy of left breast History of esophagogastroduodenoscopy (EGD) Family History Father Liver cancer Sister Skin cancer Social History Household Members: Spouse Are you a primary youth care professional to a significant other at home: No Do you presently have visiting nurse or other home services: No Alcohol intake: never Patient Tobacco Use Status: Never used Tobacco service: No Current occupational status: retired Review of Systems Const All systems reviewed & are unremarkable except as noted in HPI and below Physical Exam Vital Signs: Last Vital Signs Pulse 76 04/11/25 10:57 BP 138/63 04/11/25 10:57 BMI result Body Mass Index 30.4 Const General: cooperative, healthy appearing, comfortable, no acute distress, alert and awake Orientation/consciousness: patient oriented x3 Limitations: no limitations Chest Other: Surgical scar running superiorly to the nipple of the L breast. Left breast: No skin change, no nipple retraction, no nipple discharge, no palpable mass, no enlarged lymph nodes. Right breast: No skin change, no nipple retraction, no nipple discharge, no palpable mass, no enlarged lymph nodes, no palpable breast mass noted in the 8 to 9 o'clock position. Chest palpation & inspection: normal inspection of the chest Breast/axilla inspection: normal inspection of the breasts and normal inspection of the axillae Breast/axilla palpation: normal palpation of the breasts, normal palpation of the axillae and no axillary lymphadenopathy Chest/axillae images:  1. Resp Effort & Inspection: normal respiratory effort and able to speak in complete sentences Cardio Jugular venous distension: no JVD Skin General skin exam: no ecchymosis and no erythema Neuro General: patient oriented x3 Assessment & Plan Assessment & Plan (1) Abnormal mammogram of right breast: Code(s): R92.8 - Other abnormal and inconclusive findings on diagnostic imaging of breast Category: Medical (2) Abnormal ultrasound of breast: Code(s): R92.8 - Other abnormal and inconclusive findings on diagnostic imaging of breast Category: Medical Plan The patient is an 85 y/o woman with PMH left breast cancer diagnosed 1998 and surgically removed in 1999 presenting for initial visit after abnormal mammogram findings w/o abnormal breast signs or symptoms. PLAN Patient scheduled for biopsy on 04/17. Schedule follow up to discuss results and determine next steps. Followed by Oncology (Dr. Gann). Coding Level of Care Code New Pt Level 4 (80519) Diagnoses Abnormal mammogram of right breast R92.8 Abnormal ultrasound of breast R92.8
[2025-04-11 10:57] VITALS: BP 138/63; PULSE 76; BMI 30.4
--- OUTSIDE RECORDS SUMMARY | 2025-04-11 14:16 | XMS_ITS | Clinical Summary ---
Author Organization [facility] Address [address] [place] [address] Care Team Providers Care Director Of Emergency Nursing Name Role Phone Alba Anguiano MD Primary Care Provider Surgical History Surgery Date Site/Laterality Comments BREAST LUMPECTOMY 1998 PROCEDURE: HISTORICAL BREAST LUMPECTOMY HYSTERECTOMY PROCEDURE: ME VAGINAL HYSTERECTOMY UTERUS 250 GM/< CHOLECYSTECTOMY PROCEDURE: HISTORICAL CHOLECYSTECTOMY ESOPHAGOGASTRODUODENOSCOPY 03/26/2022 PROCEDURE: ME EGD TRANSORAL BIOPSY SINGLE/MULTIPLE; COMMENT: mild congestion, [...] Blood Sugar Contro l Test (HGBA1C) 07/12/2022 Depression Screening 07/27/2024 COVID-19 Vaccine ( - 2023-2 5 season) 2025 Influenza Vaccine (#1) 2025 HIB Vaccines Aged [...] age to complete this topic Care Teams Director Of Emergency Nursing Relationship Specialty Start Date End Date Alba Anguiano MD PCP - General Internal Medicine 11/05/21
--- OUTSIDE RECORDS SUMMARY | 2025-04-11 14:16 | XMS_ITS | Clinical Summary ---
Author Organization [facility] Address [address] [facility] [address] [place] [address] Phone Care Team Providers Care Manufacturing Engineer Chief Name Role Phone Alba Anguiano MD Primary [...] VACCINE (1 - 1-dose 75+ series) 2017 INFLUENZA VACCINE (#1) 2025 8, 04/11/2017, 04/11/2015 COVID-19 VACCINE (3 - 2024-2 6 season) 2025 09/22/2020, 08/31/2020 CREATININE LEVEL 08/17/2025 08/17/2024 POTASSIUM [...] EST) SODIUM 138 133 - 146 mmol/L [facility] CHLORIDE 100 96 - 108 mmol/L [facility] POTASSIUM 3.8 3.3 - 5.1 mmol/L [facility] CO2 29 21 - 35 mmol/L [facility] BUN 18 6 - 19 mg/dL [facility] CREATININE 0.80 0.5 - 1.5 mg/dL [facility] GLUCOSE 116(H) 70 - 99 mg/dL [facility] CALCIUM 10.2 8.4 - 10.3 mg/dL [facility] EGFR 74 >59 mL/min/1.7 3m2 [facility] Comment:Estimated glomerular filtration rate calculated using the CKD-EPI refit equation. ANION GAP 13 10 - 20 mmol/L [facility] Blood 08/17/2024 2:51 PM EST 08/17/2024 2:53 PM EST Kiara Cruz PA-C LAB BLOOD ORDERABLES Final Result [facility] [address] [place] [address] from Last 3 Months or Most Recently Relevant to Health Maintenance Insurance [facility] MEDICARE PPO BLUE REPLACEMENT [facility] MEDICARE PPO BLUE REPLACEMENT [facility] MEDICARE PPO BLUE REPLACEMENT [facility] MEDICARE PPO BLUE REPLACEMENT [facility] MEDICARE PPO BLUE REPLACEMENT [facility] MEDICARE PPO BLUE REPLACEMENT [place] [place] [place] BLUE REPLACEMENT Care Teams Manufacturing Engineer Chief Relationship Specialty Start Date End Date Alba Anguiano MD [address] [address] PCP - General 07/30/17 Additional Source Comments The information contained in this document represents components of the legal health record. It is not the complete legal health record.[facility]
== END 2025-04-11 11:32 | disposition home or self-care (01) ==
LOC: HO.HGS 10:43
PROVIDERS: PCP Internal Medicine; Visit Provider Surgery
DX: R92.8 Other abnormal and inconclusive findings on diagnostic imaging of breast (principal)
CPT/HCPCS: 99204

== ENCOUNTER → 2025-04-11 10:43 | Outpatient (BNVA) | payer MEDICARE, SELFPAY | PROVIDERS: PCP Internal Medicine; Visit Provider Surgery | DX: Z71.2 Person consulting for explanation of examination or test findings (principal); R92.8 Other abnormal and inconclusive findings on diagnostic imaging of breast; Z85.3 Personal history of malignant neoplasm of breast | CPT/HCPCS: 99202 ==

== ENCOUNTER 2025-04-21 08:41 | Outpatient (AMB) | payer MEDICARE, SELFPAY ==
--- OUTSIDE RECORDS SUMMARY | 2025-04-21 09:08 | XMS_ITS | Clinical Summary ---
Author Organization [facility] Address [address] [place] [address] Care Team Providers Care Wool Presser Name Role Phone Alba Anguiano MD Primary Care Provider Surgical History Surgery Date Site/Laterality Comments BREAST LUMPECTOMY 1998 PROCEDURE: HISTORICAL BREAST LUMPECTOMY HYSTERECTOMY PROCEDURE: ID VAGINAL HYSTERECTOMY UTERUS 250 GM/< CHOLECYSTECTOMY PROCEDURE: HISTORICAL CHOLECYSTECTOMY ESOPHAGOGASTRODUODENOSCOPY 03/26/2022 PROCEDURE: ID EGD TRANSORAL BIOPSY SINGLE/MULTIPLE; COMMENT: mild congestion, [...] age to complete this topic Care Teams Wool Presser Relationship Specialty Start Date End Date Alba Anguiano MD PCP - General Internal Medicine 11/05/21
--- OUTSIDE RECORDS SUMMARY | 2025-04-21 09:08 | XMS_ITS | Clinical Summary ---
Author Organization [facility] Address [address] [facility] [address] [place] [address] Phone Care Team Providers Care Ict Sales Representative Name Role Phone Alba Anguiano MD Primary [...] EST) SODIUM 138 133 - 146 mmol/L [facility] CHLORIDE 100 96 - 108 mmol/L [facility] POTASSIUM 3.8 3.3 - 5.1 mmol/L [facility] CO2 29 21 - 35 mmol/L [facility] BUN 18 6 - 19 mg/dL [facility] CREATININE 0.80 0.5 - 1.5 mg/dL [facility] GLUCOSE 116(H) 70 - 99 mg/dL [facility] CALCIUM 10.2 8.4 - 10.3 mg/dL [facility] EGFR 74 >59 mL/min/1.7 3m2 [facility] Comment:Estimated glomerular filtration rate calculated using the CKD-EPI refit equation. ANION GAP 13 10 - 20 mmol/L [facility] Blood 08/17/2024 2:51 PM EST 08/17/2024 2:53 PM EST Kiara Cruz PA-C LAB BLOOD ORDERABLES Final Result [facility] [address] [place] [address] from Last 3 Months or Most Recently Relevant to Health Maintenance Insurance [facility] MEDICARE PPO BLUE REPLACEMENT [facility] MEDICARE PPO BLUE REPLACEMENT [facility] MEDICARE PPO BLUE REPLACEMENT [facility] MEDICARE PPO BLUE REPLACEMENT [facility] MEDICARE PPO BLUE REPLACEMENT [facility] MEDICARE PPO BLUE REPLACEMENT [employer] [place] BLUE REPLACEMENT Care Teams Ict Sales Representative Relationship Specialty Start Date End Date Alba Anguiano MD [address] [address] PCP - General 07/30/17 Additional Source Comments The information contained in this document represents components of the legal health record. It is not the complete legal health record.[facility]
--- NOTE | 2025-04-21 09:22 | AM.OFFVISNUR ---
Intake Visit Reasons: H Pylori Allergies atorvastatin Allergy (Verified 04/21/25 09:22) Rash Penicillins Allergy (Verified 04/21/25 09:22) Rash Sulfa (Sulfonamide Antibiotics) Allergy (Verified 04/21/25 09:22) Difficulty Breathing gabapentin Adverse Reaction (Severe, Verified 04/21/25 09:22) Unknown indomethacin Adverse Reaction (Verified 04/21/25 09:22) Unknown levofloxacin (From Levaquin) Adverse Reaction (Verified 04/21/25 09:22) Unknown Nursing Note Patient presents for collection of?H Pylori?breath test. Patient has been fasting for 1 hour (nothing to eat, drink, no chewing gum or smoking) has not taken any antacid medication for at least 2 weeks and has no allergies to artificial sweeteners.?? Assessment & Plan Assessment & Plan (1) Epigastric pain: Code(s): R10.13 - Epigastric pain Category: Medical Plan Patient presents for collection of?H Pylori?breath test. Patient has been fasting for 1 hour (nothing to eat, drink, no chewing gum or smoking) has not taken any antacid medication for at least 2 weeks and has no allergies to artificial sweeteners.???This test checks for an overgrowth of bacteria in your stomach. We all have bacteria but some may have more than others. It is treatable. if the test comes back negative there is nothing else to do. If the test result is positive we will treat you with 2 antibiotics and a medication to decrease the acid in your stomach (PPI) for 2 weeks. Two weeks after you have completed the treatment we will retest you to make sure the overgrowth has resolved. Patient Instructions: Process for specimen collection and reason for testing was explained to the patient. Specimen collection. Patient instructed to take a deep breath and then exhale into the blue bag, filling it up as much as possible. Patient instructed to drink a mixture of water and the artificial sweetener with a straw. A 15 minute wait period was observed. Patient instructed to take a deep breath and then exhale into the pink bag, filling it up as much as possible.?? Coding Level of Care Code Established Pt Est Pt Level 1 (94436) Patient Type Established Diagnoses Epigastric pain R10.13
== END 2025-04-21 09:25 | disposition home or self-care (01) ==
LOC: HO.HGI 08:42
PROVIDERS: PCP Internal Medicine; Visit Provider Internal Medicine
DX: R10.13 Epigastric pain (principal)

== ENCOUNTER 2025-04-21 08:41 | Outpatient (REF) | payer MEDICARE, SELFPAY | END 2025-04-21 08:42 | disposition home or self-care (01) | LOC: HO.LAB 08:41 | PROVIDERS: PCP Internal Medicine; Visit Provider Internal Medicine | DX: R10.13 Epigastric pain (principal); R10.11 Right upper quadrant pain; K29.90 Gastroduodenitis, unspecified, without bleeding | CPT/HCPCS: 83013; 99211 ==

== ENCOUNTER 2025-04-24 10:36 | Outpatient (AMB) | payer MEDICARE, SELFPAY ==
--- NOTE | 2025-04-24 10:39 | A.OFFVIS_ITS ---
Vital Signs 04/24/25 10:49 Height 5 ft 6 in Weight 182 lb BMI 29.4 BP 118/57 L Blood Pressure Location Lt brachial Position Sitting Pulse 74 Intake Visit Reasons: s/p bx, right breast ([facility]) Intake Note: Patient is seen in office for biopsy RESULTS right breast . Pt c/o: admits to sore and tender, denies redness, discharge, per pt steri- strips came off * Okay to proceed once cleared by Dr Beverly * Certified Wellness Program Coordinator Required: No Accompanied by: Family/Other Allergies atorvastatin Allergy (Verified 04/24/25 10:40) Rash Penicillins Allergy (Verified 04/24/25 10:40) Rash Sulfa (Sulfonamide Antibiotics) Allergy (Verified 04/24/25 10:40) Difficulty Breathing gabapentin Adverse Reaction (Severe, Verified 04/24/25 10:40) Unknown indomethacin Adverse Reaction (Verified 04/24/25 10:40) Unknown levofloxacin (From Levaquin) Adverse Reaction (Verified 04/24/25 10:40) Unknown Medication List - Last Reconciled 04/24/25 by Peterson Kang MD allopurinol 100 mg PO DAILY atenolol 25 mg PO DAILY coenzyme Q10 (CoQ-10) 100 mg PO DAILY cranberry 500 mg PO BID cyanocobalamin (vitamin B-12) 1,000 mcg sublingual DAILY duloxetine 40 mg PO BID ezetimibe 10 mg PO DAILY furosemide 20 mg PO DAILY PRN levothyroxine 88 mcg PO DAILY liothyronine 5 mcg PO DAILY lisinopril-hydrochlorothiazide 20-25 mg 1 tab PO DAILY magnesium oxide 400 mg PO DAILY metformin ER 500 mg PO BID nitrofurantoin monohyd/m-cryst 100 mg (Macrobid) 100 mg PO Q12H omeprazole 20 mg PO BID 30 days rosuvastatin 5 mg PO DAILY zolpidem 5 - 10 mg PO BEDTIME PRN HPI Comments Details: 85-year-old female patient with a past medical history of a left breast cancer (DCIS) diagnosed in 1998, status post left breast lumpectomy in 1999 (Dr. Beard) with subsequent radiation therapy. She was initially treated with tamoxifen however developed a severe liver reaction and needed to be stopped. She is now presenting with a new abnormal mammogram of the right breast. A diagnostic mammogram and ultrasound performed on 03/21/2025 revealed a density in the 8-9 o'clock position, 9 cm from the nipple which by ultrasound was hypoechoic measuring 11 x 11 x 13 mm and felt to be solid. 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 She returns today to discuss her treatment options. She has an appointment to follow up with Dr. Gann as well. She does not know when menarche or menopause occurred due to irregular menstrual cycles. She is . She has no history of HRT use. She denies family history of breast cancer but has family history of colon cancer. 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 Arthritis Fibromyalgia Surgical History Hx of varicose vein ligation Hx of wisdom tooth extraction History of liver biopsy Hx of hysterectomy Hx of cholecystectomy Hx of colonoscopy History of lumpectomy of left breast History of esophagogastroduodenoscopy (EGD) Family History Father Liver cancer Sister Skin cancer Social History Household Members: Spouse Are you a primary assistant child care teacher to a significant other at home: No Do you presently have visiting nurse or other home services: No Alcohol intake: never Patient Tobacco Use Status: Never used Tobacco service: No Current occupational status: retired Review of Systems Const All systems reviewed & are unremarkable except as noted in HPI and below Physical Exam Exam Exam: Exam deferred Vital Signs: Last Vital Signs Pulse 74 04/24/25 10:49 BP 118/57 L 04/24/25 10:49 BMI result Body Mass Index 29.4 Assessment & Plan Assessment & Plan (1) Invasive ductal carcinoma of right breast: Code(s): C50.911 - Malignant neoplasm of unspecified site of right female breast Category: Medical Plan 85-year-old female patient with a recently diagnosed invasive ductal carcinoma of the right breast presenting today for discussion of treatment options. I reviewed the pathology results in detail with the patient, her and son. We discussed surgical options including right breast lumpectomy with localizer and right axillary sentinel node biopsy. After discussion of the procedure, risks, and alternatives, she consents to the right breast lumpectomy with localizer and right axillary sentinel node biopsy. She will follow up with Dr. Gann following the surgery and once the pathology results are completed to discuss next steps. Coding Level of Care Code Est Pt Level 4 (69015) Diagnoses Invasive ductal carcinoma of right breast C50.911
[2025-04-24 10:49] VITALS: BP 118/57; PULSE 74; BMI 29.4
--- OUTSIDE RECORDS SUMMARY | 2025-04-24 11:53 | XMS_ITS | Clinical Summary ---
Author Organization [facility] Address [address] [facility] [address] [place] [address] Phone Care Team Providers Care Bicycle Fitter Name Role Phone Alba Anguiano MD Primary [...] EST) SODIUM 138 133 - 146 mmol/L [facility] CHLORIDE 100 96 - 108 mmol/L [facility] POTASSIUM 3.8 3.3 - 5.1 mmol/L [facility] CO2 29 21 - 35 mmol/L [facility] BUN 18 6 - 19 mg/dL [facility] CREATININE 0.80 0.5 - 1.5 mg/dL [facility] GLUCOSE 116(H) 70 - 99 mg/dL [facility] CALCIUM 10.2 8.4 - 10.3 mg/dL [facility] EGFR 74 >59 mL/min/1.7 3m2 [facility] Comment:Estimated glomerular filtration rate calculated using the CKD-EPI refit equation. ANION GAP 13 10 - 20 mmol/L [facility] Blood 08/17/2024 2:51 PM EST 08/17/2024 2:53 PM EST Kiara Cruz PA-C LAB BLOOD ORDERABLES Final Result [facility] [address] [place] [address] from Last 3 Months or Most Recently Relevant to Health Maintenance Insurance [facility] MEDICARE PPO BLUE REPLACEMENT [facility] MEDICARE PPO BLUE REPLACEMENT [facility] MEDICARE PPO BLUE REPLACEMENT [facility] MEDICARE PPO BLUE REPLACEMENT [facility] MEDICARE PPO BLUE REPLACEMENT [facility] MEDICARE PPO BLUE REPLACEMENT [employer] [place] [place] MEDIC[place] P[place] BLUE REPLACEMENT Care Teams Bicycle Fitter Relationship Specialty Start Date End Date Alba Anguiano MD [address] [address] PCP - General 07/30/17 Additional Source Comments The information contained in this document represents components of the legal health record. It is not the complete legal health record.[facility]
--- OUTSIDE RECORDS SUMMARY | 2025-04-24 11:54 | XMS_ITS | Clinical Summary ---
Author Organization [facility] Address [address] [place] [address] Care Team Providers Care Golf Cart Mechanic Name Role Phone Alba Anguiano MD Primary Care Provider Surgical History Surgery Date Site/Laterality Comments BREAST LUMPECTOMY 1998 PROCEDURE: HISTORICAL BREAST LUMPECTOMY HYSTERECTOMY PROCEDURE: [place] VAGINAL HYSTERECTOMY UTERUS 250 GM/< CHOLECYSTECTOMY PROCEDURE: HISTORICAL CHOLECYSTECTOMY ESOPHAGOGASTRODUODENOSCOPY 03/26/2022 PROCEDURE: [place] EGD TRANSORAL BIOPSY SINGLE/MULTIPLE; COMMENT: mild congestion, [...] age to complete this topic Care Teams Golf Cart Mechanic Relationship Specialty Start Date End Date Alba Anguiano MD PCP - General Internal Medicine 11/05/21
== END 2025-04-24 11:13 | disposition home or self-care (01) ==
LOC: HO.HGS 10:37
PROVIDERS: PCP Internal Medicine; Visit Provider Surgery
DX: C50.911 Malignant neoplasm of unspecified site of right female breast (principal)
CPT/HCPCS: 99214

== ENCOUNTER → 2025-04-24 10:36 | Outpatient (BNVA) | payer MEDICARE, SELFPAY | PROVIDERS: PCP Internal Medicine; Visit Provider Surgery | DX: Z71.2 Person consulting for explanation of examination or test findings (principal); C50.411 Malignant neoplasm of upper-outer quadrant of right female breast | CPT/HCPCS: 99212 ==

== ENCOUNTER 2025-04-26 07:41 | Outpatient (REF) | payer MEDICARE, SELFPAY ==
--- NOTE | ~2025-04-26 | MM_ITS ---
EXAMINATION: Ultrasound GUIDED RFID LOCALIZATION BREAST, RIGHT CLINICAL INFORMATION: Right breast mass recently diagnosed with invasive ductal carcinoma from outside institution here for tag placement. COMPARISON: Prior outside imaging on PACS. TECHNIQUE NEEDLE LOC: Proper informed consent is obtained from the patient after discussion of the procedure, potential risks and complications, and alternatives including declining the procedure today. Patient was given an opportunity for questions. The patient appeared to understand. The patient consented to the procedure and signed the consent form. GUIDANCE: Ultrasound. APPROACH: Lateral. TARGET: Mass at 10:00 9 cm from the nipple right breast.. ANESTHESIA: 1% Lidocaine . LOCALIZATION SYSTEM: [employer] LOCallizer Wire-Free Guidance System with 12g needle applicator. RADIOFREQUENCY TAG: ID # [id number] RF Tag ID confirmed with LOCalizer Guidance System prior to placement. The skin is prepped and local anesthesia administered. The needle is positioned and RFID tag deployed. Final images demonstrate the LOCalizer RF tag to reside within the mass adjacent to the biopsy marker clip. The patient tolerated the procedure well and had no immediate complications. Dressing placed and home instructions reviewed. MM/MM tomosynthesis diagnostic RT IMPRESSION: -Status post right breast RFID localization. Electronically signed by: Cheryl Salazar DO 04/26/2025 12:33 PM EDT
--- NOTE | ~2025-04-26 | US_ITS ---
EXAMINATION: Ultrasound GUIDED RFID LOCALIZATION BREAST, RIGHT CLINICAL INFORMATION: Right breast mass recently diagnosed with invasive ductal carcinoma from outside institution here for tag placement. COMPARISON: Prior outside imaging on PACS. TECHNIQUE NEEDLE LOC: Proper informed consent is obtained from the patient after discussion of the procedure, potential risks and complications, and alternatives including declining the procedure today. Patient was given an opportunity for questions. The patient appeared to understand. The patient consented to the procedure and signed the consent form. GUIDANCE: Ultrasound. APPROACH: Lateral. TARGET: Mass at 10:00 9 cm from the nipple right breast.. ANESTHESIA: 1% Lidocaine . LOCALIZATION SYSTEM: [employer] LOCallizer Wire-Free Guidance System with 12g needle applicator. RADIOFREQUENCY TAG: ID # [id number] RF Tag ID confirmed with LOCalizer Guidance System prior to placement. The skin is prepped and local anesthesia administered. The needle is positioned and RFID tag deployed. Final images demonstrate the LOCalizer RF tag to reside within the mass adjacent to the biopsy marker clip. The patient tolerated the procedure well and had no immediate complications. Dressing placed and home instructions reviewed. US/US Breast RF Tag Device Right IMPRESSION: -Status post right breast RFID localization. Electronically signed by: Cheryl Salazar DO 04/26/2025 12:33 PM EDT
--- OUTSIDE RECORDS SUMMARY | 2025-04-26 07:44 | XMS_ITS | Clinical Summary ---
Author Organization [facility] Address [address] [place] [address] Care Team Providers Care Press Operator Name Role Phone Alba Anguiano MD Primary Care Provider Surgical History Surgery Date Site/Laterality Comments BREAST LUMPECTOMY 1998 PROCEDURE: HISTORICAL BREAST LUMPECTOMY HYSTERECTOMY PROCEDURE: [place] VAGINAL HYSTERECTOMY UTERUS 250 GM/< CHOLECYSTECTOMY PROCEDURE: HISTORICAL CHOLECYSTECTOMY ESOPHAGOGASTRODUODENOSCOPY 03/26/2022 PROCEDURE: [place] EGD TRANSORAL BIOPSY SINGLE/MULTIPLE; COMMENT: mild congestion, [...] age to complete this topic Care Teams Press Operator Relationship Specialty Start Date End Date Alba Anguiano MD PCP - General Internal Medicine 11/05/21
--- OUTSIDE RECORDS SUMMARY | 2025-04-26 07:44 | XMS_ITS | Clinical Summary ---
Author Organization [facility] Address [address] [facility] [address] [place] [address] Phone Care Team Providers Care L Tacker Name Role Phone Alba Anguiano MD Primary [...] EST) SODIUM 138 133 - 146 mmol/L [facility] CHLORIDE 100 96 - 108 mmol/L [facility] POTASSIUM 3.8 3.3 - 5.1 mmol/L [facility] CO2 29 21 - 35 mmol/L [facility] BUN 18 6 - 19 mg/dL [facility] CREATININE 0.80 0.5 - 1.5 mg/dL [facility] GLUCOSE 116(H) 70 - 99 mg/dL [facility] CALCIUM 10.2 8.4 - 10.3 mg/dL [facility] EGFR 74 >59 mL/min/1.7 3m2 [facility] Comment:Estimated glomerular filtration rate calculated using the CKD-EPI refit equation. ANION GAP 13 10 - 20 mmol/L [facility] Blood 08/17/2024 2:51 PM EST 08/17/2024 2:53 PM EST Kiara Cruz PA-C LAB BLOOD ORDERABLES Final Result [facility] [address] [place] [address] from Last 3 Months or Most Recently Relevant to Health Maintenance Insurance [facility] MEDICARE PPO BLUE REPLACEMENT [facility] MEDICARE PPO BLUE REPLACEMENT [facility] MEDICARE PPO BLUE REPLACEMENT [facility] MEDICARE PPO BLUE REPLACEMENT [facility] MEDICARE PPO BLUE REPLACEMENT [facility] MEDICARE PPO BLUE REPLACEMENT [employer] [place] MED[place] P[place] BLUE REPLACEMENT Care Teams L Tacker Relationship Specialty Start Date End Date Alba Anguiano MD [address] [address] PCP - General 07/30/17 Additional Source Comments The information contained in this document represents components of the legal health record. It is not the complete legal health record.[facility]
[2025-04-26] MEDS: Lidocaine HCl 1 % 20 ML VIAL 9 ML SUBCUT (09:17)
== END 2025-04-26 07:42 | disposition home or self-care (01) ==
LOC: HO.MAMMO 07:41
PROVIDERS: PCP Internal Medicine; Visit Provider Surgery
DX: C50.911 Malignant neoplasm of unspecified site of right female breast (principal); N63.11 Unspecified lump in the right breast, upper outer quadrant
CPT/HCPCS: 19285; 77061; 77065; J2003

== ENCOUNTER → 2025-04-26 08:00 | Outpatient (BNV) | payer MEDICARE, SELFPAY | PROVIDERS: PCP Internal Medicine; Visit Provider Internal Medicine | DX: C50.911 Malignant neoplasm of unspecified site of right female breast (principal) | CPT/HCPCS: 19285 ==

== ENCOUNTER 2025-05-04 06:48 | Day surgery (SDC) | payer MEDICARE, SELFPAY ==
--- OUTSIDE RECORDS SUMMARY | 2025-04-25 12:54 | XMS_ITS | Clinical Summary ---
Author Organization [facility] Address [address] [facility] [address] [place] [address] Phone Care Team Providers Care Engineer And Geologist Name Role Phone Alba Anguiano MD Primary [...] SODIUM 138 133 - 146 mmol/L [facility] CHLORIDE 100 96 - 108 mmol/L [facility] POTASSIUM 3.8 3.3 - 5.1 mmol/L [facility] CO2 29 21 - 35 mmol/L [facility] BUN 18 6 - 19 mg/dL [facility] CREATININE 0.80 0.5 - 1.5 mg/dL [facility] GLUCOSE 116(H) 70 - 99 mg/dL [facility] CALCIUM 10.2 8.4 - 10.3 mg/dL [facility] EGFR 74 >59 mL/min/1.7 3m2 [facility] Comment:Estimated glomerular filtration rate calculated using the CKD-EPI refit equation. ANION GAP 13 10 - 20 mmol/L [facility] Blood 08/17/2024 2:51 PM EST 08/17/2024 2:53 PM EST Kiara Cruz PA-C LAB BLOOD ORDERABLES Final Result [facility] [address] [place] [address] from Last 3 Months or Most Recently Relevant to Health Maintenance Insurance [facility] MEDICARE PPO BLUE REPLACEMENT [facility] MEDICARE PPO BLUE REPLACEMENT [facility] MEDICARE PPO BLUE REPLACEMENT [facility] MEDICARE PPO BLUE REPLACEMENT [facility] MEDICARE PPO BLUE REPLACEMENT [facility] MEDICARE PPO BLUE REPLACEMENT [place] P[place] BLUE REPLACEMENT Care Teams Engineer And Geologist Relationship Specialty Start Date End Date Alba Anguiano MD [address] [address] PCP - General 07/30/17 Additional Source Comments The information contained in this document represents components of the legal health record. It is not the complete legal health record.[facility]
--- OUTSIDE RECORDS SUMMARY | 2025-04-25 12:54 | XMS_ITS | Clinical Summary ---
Author Organization [facility] Address [address] [place] [address] Care Team Providers Care School Superintendent Name Role Phone Alba Anguiano MD Primary Care Provider [phone] Surgical History Surgery Date Site/Laterality Comments BREAST LUMPECTOMY 1998 PROCEDURE: HISTORICAL BREAST LUMPECTOMY HYSTERECTOMY PROCEDURE: [place] VAGINAL HYSTERECTOMY UTERUS 250 GM/< CHOLECYSTECTOMY PROCEDURE: HISTORICAL CHOLECYSTECTOMY ESOPHAGOGASTRODUODENOSCOPY 03/26/2022 PROCEDURE: [place] EGD TRANSORAL BIOPSY SINGLE/MULTIPLE; COMMENT: mild congestion, [...] age to complete this topic Care Teams School Superintendent Relationship Specialty Start Date End Date Alba Anguiano MD PCP - General Internal Medicine 11/05/21
[2025-05-02 08:57] VITALS: BMI 29.4
--- NOTE | 2025-05-02 14:31 | HO.ANESPROP2 ---
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 Beverly 04/24/25 states pt has advanced fibrosis of liver based on elastography in 2023 with no clinical signs of portal hypertension; no problem to proceed with lumpectomy from GI standpoint. Type 2 DM: A1C 7.7% 12/2024 GERD: on PPI PMFSH Active Problems Active Problems: All Active Problems Invasive ductal carcinoma of right breast (Acute) Abnormal ultrasound of breast (Acute) Abnormal mammogram of right breast (Acute) Breast mass, right (Acute) Varicose veins of right lower extremity with inflammation (Acute) Varicose veins of bilateral lower extremities with pain (Acute) Gastritis and duodenitis (Acute) Postprandial RUQ pain (Acute) Esophageal stricture (Acute) Early satiety (Acute) Epigastric pain (Acute) Normochromic normocytic anemia (Acute) Normocytic anemia, not due to blood loss (Acute) Dyspepsia (Acute) Fatty liver (Acute) Past Medical History Medical History CKD (chronic kidney disease) stage 1, GFR 90 ml/min or greater Sjogren syndrome Sleep apnea Hepatitis Murmur GERD (gastroesophageal reflux disease) Depression Bilateral cataracts B12 deficiency Atrophic pancreas Atopic dermatitis Aortic stenosis Gout Thyroid disease High cholesterol High blood pressure Diabetes mellitus 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 Arthritis Fibromyalgia Family History Family History Father Liver cancer Sister Skin cancer Family history of problems with anesthesia: No Surgical History Surgical History History of tonsillectomy and adenoidectomy Hx of inguinal hernia repair Hx of dilation and curettage Hx of cataract extraction Hx of varicose vein ligation Hx of wisdom tooth extraction History of liver biopsy Hx of hysterectomy Hx of cholecystectomy Hx of colonoscopy History of lumpectomy of left breast History of esophagogastroduodenoscopy (EGD) History of Problems with Anesthesia: Yes Social History Social History Household Members: Spouse Are you a primary inspector health care facilities to a significant other at home: No Do you presently have visiting nurse or other home services: No Alcohol intake: never Patient Tobacco Use Status: Never used Tobacco Have you been hit, kicked, punched, or otherwise hurt by someone within the past year? If so, by whom?: No Are you DNR?: No Advance Directives: No Advance Directives Information Provided: Yes service: No Current occupational status: retired Meds Allergies Allergy/AdvReac Type Severity Reaction Status Date / Time atorvastatin Allergy Rash Verified 04/24/25 10:40 erythromycin base Allergy Unknown Verified 05/02/25 08:56 Penicillins Allergy Rash Verified 04/24/25 10:40 rosuvastatin (From Crestor) Allergy Unknown Verified 05/02/25 08:56 Sulfa (Sulfonamide Allergy Difficulty Verified 04/24/25 10:40 Antibiotics) Breathing gabapentin AdvReac Severe Unknown Verified 04/24/25 10:40 indomethacin AdvReac Unknown Verified 04/24/25 10:40 levofloxacin (From Levaquin) AdvReac Unknown Verified 04/24/25 10:40 Home Medications ?Medication ?Instructions ?Recorded ?Confirmed ?Last Taken ?Type allopurinol 100 mg tablet 100 mg PO DAILY 03/09/24 05/02/25 Unknown History atenolol 25 mg tablet 25 mg PO DAILY 03/09/24 05/02/25 Unknown History duloxetine 20 mg capsule,delayed 40 mg PO BID 03/09/24 05/02/25 Unknown History release liothyronine 5 mcg tablet 5 mcg PO DAILY 03/09/24 05/02/25 Unknown History lisinopril 20 1 tab PO DAILY 03/09/24 05/02/25 Unknown History mg-hydrochlorothiazide 25 mg tablet rosuvastatin 5 mg tablet 5 mg PO DAILY 03/09/24 05/02/25 Unknown History ezetimibe 10 mg tablet 10 mg PO DAILY 04/21/24 05/02/25 Unknown History furosemide 20 mg tablet 20 mg PO DAILY PRN swelling 04/21/24 05/02/25 Unknown History coenzyme Q10 100 mg capsule 100 mg PO DAILY 12/07/24 05/02/25 Unknown History (CoQ-10) cranberry 500 mg capsule 500 mg PO BID 12/07/24 05/02/25 Unknown History levothyroxine 88 mcg tablet 88 mcg PO DAILY 03/06/25 05/02/25 Unknown History metformin 500 mg tablet,extended 500 mg PO BID 03/06/25 05/02/25 Unknown History release 24 hr zolpidem 5 mg tablet 5 - 10 mg PO BEDTIME PRN insomnia 03/06/25 05/02/25 Unknown History Exam Height,Weight and Vital Signs: Height 5 ft 6 in Weight 82.554 kg Pertinent Lab Results Pertinent Lab Results: Laboratory Tests 04/24/25 09:17 WBC 6.7 RBC 4.09 L Hgb 11.3 L Hct 35.3 L Plt Count 236 Sodium 142 Potassium 4.3 BUN 24 H Creatinine 0.95 Narrative Narrative: ECHO 01/2025 [facility] -Left ventricle size is normal. -Left ventricular wall thickness is normal. -Overall left ventricular systolic function is normal with EG 60-65%. -Grade I diastolic dysfunction with an impaired relaxation filling pattern and normal filling pressures. -No evidence of wall motion abnormalities. -The left atrial size is normal. -The right ventricular systolic function is normal. -Aortic valve is moderately calcified. -Moderate aortic stenosis with peak/mean pressure gradient of 46.84/28.58 mmHg; aortic valve area is 1.3 cm. -Mild aortic regurgitation. -Mild mitral regurgitation. -No evidence of pulmonary hypertension. -Compared with findings of prior report of mild progression in aortic valve gradients EKG 03/01/25 Sinus rhythm, left axis deviation, RSR in V2 ECG without significant abnormalities Rate 77 Assessment and Plan Final Anesthetic Review Family History of Problems with Anesthesia: No History of Problems with Anesthesia: Yes Documented by User: Ervin Wing MD 05/04/25 10:49 [facility] Past Medical History Medical History CKD (chronic kidney disease) stage 1, GFR 90 ml/min or greater Sjogren syndrome Sleep apnea Hepatitis Murmur GERD (gastroesophageal reflux disease) Depression Bilateral cataracts B12 deficiency Atrophic pancreas Atopic dermatitis Aortic stenosis Gout Thyroid disease High cholesterol High blood pressure Diabetes mellitus 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 Arthritis Fibromyalgia Family History Family History Father Liver cancer Sister Skin cancer Surgical History Surgical History History of tonsillectomy and adenoidectomy Hx of inguinal hernia repair Hx of dilation and curettage Hx of cataract extraction Hx of varicose vein ligation Hx of wisdom tooth extraction History of liver biopsy Hx of hysterectomy Hx of cholecystectomy Hx of colonoscopy History of lumpectomy of left breast History of esophagogastroduodenoscopy (EGD) Social History Social History Household Members: Spouse Are you a primary inspector health care facilities to a significant other at home: No Do you presently have visiting nurse or other home services: No Alcohol intake: never Patient Tobacco Use Status: Never used Tobacco Have you been hit, kicked, punched, or otherwise hurt by someone within the past year? If so, by whom?: No Are you DNR?: No Advance Directives: No Advance Directives Information Provided: Yes service: No Current occupational status: retired Meds Allergies Allergy/AdvReac Type Severity Reaction Status Date / Time atorvastatin Allergy Rash Verified 04/24/25 10:40 erythromycin base Allergy Unknown Verified 05/02/25 08:56 Penicillins Allergy Rash Verified 04/24/25 10:40 rosuvastatin (From Crestor) Allergy Unknown Verified 05/02/25 08:56 Sulfa (Sulfonamide Allergy Difficulty Verified 04/24/25 10:40 Antibiotics) Breathing gabapentin AdvReac Severe Unknown Verified 04/24/25 10:40 indomethacin AdvReac Unknown Verified 04/24/25 10:40 levofloxacin (From Levaquin) AdvReac Unknown Verified 04/24/25 10:40 Home Medications ?Medication ?Instructions ?Recorded ?Confirmed ?Last Taken ?Type allopurinol 100 mg tablet 100 mg PO DAILY 03/09/24 05/02/25 Unknown History atenolol 25 mg tablet 25 mg PO DAILY 03/09/24 05/02/25 Unknown History duloxetine 20 mg capsule,delayed 40 mg PO BID 03/09/24 05/02/25 Unknown History release liothyronine 5 mcg tablet 5 mcg PO DAILY 03/09/24 05/02/25 Unknown History lisinopril 20 1 tab PO DAILY 03/09/24 05/02/25 Unknown History mg-hydrochlorothiazide 25 mg tablet rosuvastatin 5 mg tablet 5 mg PO DAILY 03/09/24 05/02/25 Unknown History ezetimibe 10 mg tablet 10 mg PO DAILY 04/21/24 05/02/25 Unknown History furosemide 20 mg tablet 20 mg PO DAILY PRN swelling 04/21/24 05/02/25 Unknown History coenzyme Q10 100 mg capsule 100 mg PO DAILY 12/07/24 05/02/25 Unknown History (CoQ-10) cranberry 500 mg capsule 500 mg PO BID 12/07/24 05/02/25 Unknown History levothyroxine 88 mcg tablet 88 mcg PO DAILY 03/06/25 05/02/25 Unknown History metformin 500 mg tablet,extended 500 mg PO BID 03/06/25 05/02/25 Unknown History release 24 hr zolpidem 5 mg tablet 5 - 10 mg PO BEDTIME PRN insomnia 03/06/25 05/02/25 Unknown History Exam Exam Date and Time: 05/04/2025 Airway Mallampati Class: II TM Dist: >3cm Neck ROM: Full Denture: Upper Loose/Missing/Broken Teeth: Yes Heart: systolic murmur c/w known diagnosis Lungs: ctab vesicular Assessment and Plan Assessment Anesthesia Assessment: Anesthesia Plan Discussed and Chart Reviewed Final Anesthetic Review NPO: Yes ASA Class: III Final Preanesthetic Review: No Changes in Pt Med Stat, Meds/Allgs Chart Reviewed, Consent Obtained/Reviewed and Anes Risks/Benef Reviewed Patient Risk: Intermediate Procedure Risk: Low Anesthetic Plan Anesthetic Plan: GA Disposition: Standard PACU
[2025-05-04] VITALS (19 sets, daily range): BP systolic 116–148; BP diastolic 53–68; PULSE 62–73; RESP 10–20; TEMP 36.2–36.9; O2SAT 92–100
--- NOTE | ~2025-05-04 | NM_ITS ---
EXAMINATION: Nuclear medicine sentinel node imaging. CLINICAL INDICATION: Right breast cancer. TECHNIQUE: Following explaining right breast sentinel node procedure, benefits and risk, a written consent was obtained. 4% lidocaine was applied around the right breast areola 30 minutes prior to the procedure. The area and the area was cleaned and aseptic manner. 0.5 mCi of 90 9M technetium lymphoscintigraphy divided in 4 equal doses was subcutaneously injected in 4 quadrants around the right breast areola. Imaging was obtained 30 minutes later. Patient tolerated procedure extremely well. FINDINGS/ NM/NM sentinel node w imaging IMPRESSION: There is isotope activity in 4 quadrants around the right breast areola. There are multiple lymph node uptake seen around the right anterior axilla. No activity seen along the internal mammary lymph nodes. Electronically signed by: Vineet Barlow MD 05/04/2025 02:09 PM EDT
--- NOTE | ~2025-05-04 | MM_ITS ---
Single right breast specimen radiograph demonstrates the tag and the ribbon marker clip within the specimen. Electronically signed by: Cheryl Salazar DO 05/04/2025 11:19 AM EDT
[2025-05-04 07:13] LABS: Glucose, Whole Blood 133 mg/dL (60-115)
[2025-05-04] MEDS: Lactated Ringers 1,000 ML 100 ML IVCONT (07:26)
--- NOTE | 2025-05-04 09:44 | MHC.SHP ---
Pre-Procedural Eval Section A - 24 Hr Update-Section A only Date of Service: 05/04/25 The patient is an INPATIENT: No Changes since office visit: Yes Patient answered all questions; No Cold of Flu in the past 2 weeks, No New Medical Problems and No Changes in Medication The patient has been examined within 24 hours of the surgical procedure. The History & Physical has been completed within 30 days and I have reviewed it.: Yes Section B - Complete if H&P > 30 days Chief Complaint: Malignant neoplasm of unspecified site of right Allergies: Allergies Allergy/AdvReac Type Severity Reaction Status Date / Time atorvastatin Allergy Rash Verified 04/24/25 10:40 erythromycin base Allergy Unknown Verified 05/02/25 08:56 Penicillins Allergy Rash Verified 04/24/25 10:40 rosuvastatin (From Crestor) Allergy Unknown Verified 05/02/25 08:56 Sulfa (Sulfonamide Allergy Difficulty Verified 04/24/25 10:40 Antibiotics) Breathing gabapentin AdvReac Severe Unknown Verified 04/24/25 10:40 indomethacin AdvReac Unknown Verified 04/24/25 10:40 levofloxacin (From Levaquin) AdvReac Unknown Verified 04/24/25 10:40 Plan Diagnosis/Plan: Unchanged I have reviewed the history and physical and performed a pertinent physical examination on my patient. No changes have occurred unless specified. Time Spent With Patient Time: Total time managing care of this patient today ____ minutes.
--- NOTE | 2025-05-04 11:35 | W.PM.OPN ---
Operative Note Operative Note Date of Service: 05/04/25 Narrative: Preoperative diagnosis: Invasive ductal carcinoma right breast upper outer quadrant Postoperative diagnosis: Same Procedure: Right breast lumpectomy with localizer, right axillary sentinel node biopsy Surgeon: Peterson Kang MD [employer] Helper: Marixa Lal PA-C; Keyon Triplett PA-C, EM Kamara Anesthesia: General endotracheal Indications for procedure: 85-year-old female patient found to have a density in the right breast at the upper outer quadrant, status post stereotactic guided core biopsy which revealed invasive ductal carcinoma, ER/UT positive, grade 1. She presents today for lumpectomy with sentinel node biopsy Operative findings: Marking clip and localizer clip noted in specimen x-ray. Gross pathology revealed close posterior/deep margin. Wider excision of deep margin subsequently performed. Specimen: 1. Right breast lumpectomy with localizer 2. [place] node 1 3. [place] node 2 4. Additional axillary tissue 5. Palpable node 1 6. Posterior margin wider excision Estimated blood loss: 15 mL Complications: None Procedure details: Patient was brought to the OR and placed in a supine position. After administering general anesthesia, the patient's right breast was prepped with ChloraPrep and draped in a sterile fashion. A surgical time-out was called the consent confirmed. Patient received preoperative antibiotics and Venodyne boots were in place. Localizer was used to identify the area of increased activity in the upper outer quadrant right breast. A curvilinear incision was made in the upper outer quadrant and carried down into the subcutaneous tissue. Superior and inferior skin flaps were then created with the electrocautery. Using the localizer as a guide a core of tissue surrounding this localizer clip was then performed. This was started with the medial margin, followed by the superior margin, inferior margin, posterior margin, and finally lateral margin. Lesion was marked with a long suture in the lateral margin, short suture on the superior margin, and looped suture in the posterior margin. The lesion was imaged in the OR which confirmed the marking clip within the specimen. Gross pathology was then performed which revealed close posterior margin. As a result an additional posterior margin was then sent as a specimen. Attention was then directed to the axilla through the same incision. Using the gamma probe as a guide the clavipectoral fascia was entered and area of increased activity grasped with an Allis clamp. This was then dissected using electrocautery. Two hot sentinel nodes were identified and sent as separate specimens. In addition a palpable node was noted within the axillary contents and sent as a specimen as well. Only background radiation could be a identified following removal of the 2 specimens. No other palpable nodes were noted at this time. Wounds were irrigated with saline solution and suctioned dry. Wounds were again checked for hemostasis. The biopsy cavity was marked with hemoclips. Deep breast tissue was then reapproximated using interrupted 3-0 Polysorb sutures. Superficial breast tissue was reapproximated using interrupted 3-0 Polysorb sutures. Dermis was reapproximated using interrupted 3-0 Polysorb sutures. Skin was then closed using a running subcuticular 4-0 Polysorb suture. Steri-Strips, 4 x 4 gauze and Tegaderm were then applied. The patient tolerated the procedure well. Sponge, instrument, and needle counts reported as correct. The patient was transferred to PACU in stable condition. Please note, this procedure was performed with curative intent. Breast [place] Node Biopsy Substrate(s) used for sentinel node biopsy in the non-neoadjuvant setting: Radiotracer Substrate(s) used for sentinel node biopsy in the neoadjuvant setting: N/A All colored nodes or non-colored nodes present at the end of a dye filled lymphatic channel were removed, if dye was used as the substrate for localization: N/A All significantly radioactive nodes were removed, if radionuclide was used as the substrate for localization: Yes All palpably suspicious nodes were removed, if present: Yes If clips were placed in pathology-involved nodes, those nodes were identified and removed: N/A Procedure performed with curative intent?: Yes General Surg. - Synoptic Notes Breast [place] Node Biopsy Substrate(s) used for sentinel node biopsy in the non-neoadjuvant setting: Radiotracer Substrate(s) used for sentinel node biopsy in the neoadjuvant setting: N/A All colored nodes or non-colored nodes present at the end of a dye filled lymphatic channel were removed, if dye was used as the substrate for localization: N/A All significantly radioactive nodes were removed, if radionuclide was used as the substrate for localization: Yes All palpably suspicious nodes were removed, if present: Yes If clips were placed in pathology-involved nodes, those nodes were identified and removed: N/A Procedure performed with curative intent?: Yes
== END 2025-05-04 16:24 | disposition home or self-care (01) ==
PROVIDERS: PCP Internal Medicine; Visit Provider Surgery
PROC: (CPT 19301; principal; 2025-05-04 10:30)
PROC: (CPT 19301; 2025-05-04 10:30)
DX: C50.411 Malignant neoplasm of upper-outer quadrant of right female breast (principal); Z17.0 Estrogen receptor positive status [ER+]; Z17.21 Progesterone receptor positive status; Z17.32 Human epidermal growth factor receptor 2 negative status; Z85.3 Personal history of malignant neoplasm of breast; Z92.3 Personal history of irradiation; Z80.0 Family history of malignant neoplasm of digestive organs; I10 Essential (primary) hypertension; E78.00 Pure hypercholesterolemia, unspecified; M10.9 Gout, unspecified; M79.7 Fibromyalgia; K75.81 Nonalcoholic steatohepatitis (NASH); K74.60 Unspecified cirrhosis of liver; E11.9 Type 2 diabetes mellitus without complications; Z79.899 Other long term (current) drug therapy; Z79.84 Long term (current) use of oral hypoglycemic drugs; Z88.0 Allergy status to penicillin; Z88.1 Allergy status to other antibiotic agents; Z88.2 Allergy status to sulfonamides; Z88.8 Allergy status to other drugs, medicaments and biological substances; Z98.890 Other specified postprocedural states
CPT/HCPCS: 19301; 38525; 38900; 78195; 82947; 88305; 88307; 88342; A9520; C1889; J0131; J1100; J2003; J2250; J2371; J2405; J2704; J3010; J3374

== ENCOUNTER → 2025-05-04 06:48 | Outpatient (BNV) | payer MEDICARE, SELFPAY | PROVIDERS: PCP Internal Medicine; Visit Provider Surgery | DX: C50.411 Malignant neoplasm of upper-outer quadrant of right female breast (principal) | CPT/HCPCS: 19302 ==

== ENCOUNTER → 2025-05-04 08:09 | Outpatient (BNV) | payer MEDICARE, SELFPAY | PROVIDERS: PCP Internal Medicine; Visit Provider Radiology Diagnostic Radiology | DX: C50.911 Malignant neoplasm of unspecified site of right female breast (principal) | CPT/HCPCS: 78195 ==

== ENCOUNTER 2025-05-15 12:39 | Outpatient (AMB) | payer MEDICARE, SELFPAY ==
--- NOTE | 2025-05-15 12:44 | A.OFFVIS_ITS ---
Vital Signs 05/15/25 12:45 Weight 154 lb 5.177 oz BP 101/51 L Blood Pressure Location Lt brachial Position Sitting Pulse 72 Intake Visit Reasons: egd h pylori Intake Note: Kayy presents in the office as a follow up for an EGD and H [email or web address] CC: GI cartwright - she still has nausea and she is now working on her constipation. Still has pains in the stomach - right flank region - she said sometimes it is worse than usual. She states smaller meals seems to help but appetitite it not the greatest. Belt Lacer Required: No Allergies atorvastatin Allergy (Verified 05/15/25 12:50) Rash erythromycin base Allergy (Verified 05/15/25 12:50) Unknown Penicillins Allergy (Verified 05/15/25 12:50) Rash rosuvastatin (From Crestor) Allergy (Verified 05/15/25 12:50) Unknown Sulfa (Sulfonamide Antibiotics) Allergy (Verified 05/15/25 12:50) Difficulty Breathing gabapentin Adverse Reaction (Severe, Verified 05/15/25 12:50) Unknown indomethacin Adverse Reaction (Verified 05/15/25 12:50) Unknown levofloxacin (From Levaquin) Adverse Reaction (Verified 05/15/25 12:50) Unknown HPI Comments Details: 84 y.o F with PMH of fatty liver/PETERS thought to be secondary to tamoxifen initially and now likely from metabolic factors who is here for a second opinion on PETERS/cirrhosis. Reports has had lonstanding hx of fatty liver. Used to be under care of Dr Morley and then later Ramón Alvarez. More recently has been diagnosed with possible cirrhosis for which she is here to seek another opinion. Used to be on a good regimented high protein diet but around 6-8 months ago reports increased fatigue, lack of energy and interest in most of her daily activities. Slipped off the diet. Had sudden weight gain of almost 20 lbs in 2 months leading to poor DM control and possibly cirrhosis on imaging. With this, now more recently has also developed fatigue and increased overall body aches with low energy. Reports fullness in abd mike after any oral intake in 5-10 mins. With nausea. No burping or belching. BMs fluctuate between formed and diarrhea. No blood in stool. On pantoprazole 40 once daily. Also on duloxetine 20 for fibromyalgia - recently increased to 40. 03/2023: EGD esophageal ulcers 10/2023: liver with nodular contour Father: liver cancer. - unk cause. 07/15/24: Here for follow up. Labs reviewed, neg for iron overload, autoimmune hepatitis, celiac. Reports continued disinterest and fatigue even to do daily tasks. PHQ-9 score is 19 in office today. PCP visit pending. In terms of GI sx, continues to have mid epigastric pain and fullness sensation. Worse on sitting down. Better on standing. Barium swallow records available now and note made of lower esophageal narrowing with 13 mm tablet not able to go through. Pt already amauri for EGD in 4 weeks. Today, pt also reports worsening R sided pain and tenderness, unable to lay on that side at night. Swelling like sensation in that area. In terms of non-iron deficiency anemia, seeing Hematology and started on B12 and folate supplementation. EGD 08/23/24: * Normal esophagus (biopsy) * Hiatal hernia * Gastritis (biopsy) * Duodenitis (biopsy)?? A. Duodenum, biopsy: Duodenal mucosa within normal limits. B. Stomach, antrum lesser curvature, biopsy: Antral-type mucosa with mild chronic inactive inflammation; no Helicobacter organisms seen. C. Stomach, antrum greater curvature, biopsy: Antral-type mucosa with mild chronic inactive inflammation; no Helicobacter organisms seen. D. Stomach, incisura, biopsy: Oxyntic mucosa with mild chronic inactive inflammation; no Helicobacter organisms seen. E. Stomach, body lesser curvature, biopsy: Oxyntic mucosa with mild chronic inactive inflammation; no Helicobacter organisms seen. F. Stomach, body greater curvature, biopsy: Oxyntic mucosa within normal limits; no Helicobacter organisms seen. G. Esophagus, lower, biopsy: Active esophagitis (maximum eosinophil count 2 per high powered field). H. Esophagus, middle, biopsy: Active esophagitis (maximum eosinophil count 5 per high powered field) 09/07/24: Here for post EGD follow up. Reports persistent abd pain and lack of appetite. Bx results reviewed with the pt. Reassured that no dysplasia noted in stomach bx. In addition no signs of portal HTN noted such as PHG or varices. Taking rabeprazole 20 but causing more nausea and vomiting by the late afternoon. Wanting to go back to omeprazole. 12/07/24: Routine 3m follow up. Reports side effects to mirtazipine - sleepy during daytime, mood changes, swelling in legs and hands. Stopped mirtazipine a month ago. Otherwise abd pain has been a lot better with omeprazole. Swallowing was better but recently had oral surgery with removal of teeth so still sore in mouth and sticking to liquids. Also reports leg soreness and pain bilaterally. Not in joints. Has varicose veins on exam. 03/06/25: Here for folllow up. Reports not much difference since the varicose veins ablation. IN terms of RUQ pain, still there but tolerable. Prev poor adverse reaction to mirtazipine. Also reports bad reaction to gabapentin. Has not heard re EGD booking yet. 03/07/25: * Mild GE junction stricture (dilation) * Normal esophageal mucosa * Antral gastritis (biopsy) * Normal duodenum Path: Gastric antrum, biopsy: Reactive gastropathy with ectatic vessels, minimal chronic inactive inflammation, and focal intestinal metaplasia (complete); negative for H. pylori and dysplasia 05/15/25: Here for follow up after egd. Breath test H Pylori OFF ppi x 2 weeks was negative. In the interim pt has had R lumpectomy (Dr Javier). Path reviewed, confirms ER + AZ + invasive ductal ca. Reports sig discomfort in R axilla and R breast since lumpectomy with marked echymosis of that area. Otherwise from GI standpoint, does not notice any improvmenet in dysphagia despite dilation. REviewed that should explore dymotility but since dysphagia manageable and no unintentional weight loss due this, can hold off until tx for breast ca completed. For PETERS, due for US 07/2025. 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 Arthritis Fibromyalgia Surgical History History of tonsillectomy and adenoidectomy Hx of inguinal hernia repair Hx of dilation and curettage Hx of cataract extraction Hx of varicose vein ligation Hx of wisdom tooth extraction History of liver biopsy Hx of hysterectomy Hx of cholecystectomy Hx of colonoscopy History of lumpectomy of left breast History of esophagogastroduodenoscopy (EGD) Family History Father Liver cancer Sister Skin cancer Social History Household Members: Spouse Are you a primary career services manager to a significant other at home: No Do you presently have visiting nurse or other home services: No Alcohol intake: never Comment: counts correct Patient Tobacco Use Status: Never used Tobacco service: No Current occupational status: retired Physical Exam Exam Exam: No apparent distress Nonicteric R chest wall with tenderness, mild induration and significant echymosis Abdomen soft, nondistended Alert and oriented x3, normal gait Vital Signs: Last Vital Signs Pulse 72 05/15/25 12:45 BP 101/51 L 05/15/25 12:45 Assessment & Plan Assessment & Plan (1) Postprandial RUQ pain: Code(s): R10.11 - Right upper quadrant pain Category: Medical (2) Epigastric pain: Code(s): R10.13 - Epigastric pain Category: Medical (3) Early satiety: Code(s): R68.81 - Early satiety Category: Medical (4) Gastritis: Code(s): K29.70 - Gastritis, unspecified, without bleeding Plan # Gastritis: # Dysphagia: Gastritis without H pylori. No response to empiric dilation. Plan: - Next step HREM but can hold off until tx for breast ca completed since sx are longstanding and manageable by pt - Switch omeprazole to famotidine as pt uses this PRN only #MAFLD/PETERS Likely has advanced fibrosis based on elastography 2023. No CSPH so far based on platelets and EGD findings. Plan: - US Abd due Jul 2025 - Will reserve EGD for variceal screening for platelets < 150 Follow up 3 months Medications: New famotidine 20 mg PO DAILY PRN 30 tabs 0RF heartburn Coding Level of Care Code Est Pt Level 4 (04637) Diagnoses Postprandial RUQ pain R10.11 Epigastric pain R10.13 Early satiety R68.81 Gastritis K29.70
[2025-05-15 12:45] VITALS: BP 101/51; PULSE 72
== END 2025-05-15 13:25 | disposition home or self-care (01) ==
LOC: HO.HGI 12:39
PROVIDERS: PCP Internal Medicine; Visit Provider Internal Medicine
DX: R10.11 Right upper quadrant pain (principal); R10.13 Epigastric pain; R68.81 Early satiety; K29.70 Gastritis, unspecified, without bleeding
CPT/HCPCS: 99214

== ENCOUNTER → 2025-05-15 12:39 | Outpatient (BNVA) | payer MEDICARE, SELFPAY | PROVIDERS: PCP Internal Medicine; Visit Provider Internal Medicine | DX: R10.11 Right upper quadrant pain (principal); R10.13 Epigastric pain; R68.81 Early satiety; K29.70 Gastritis, unspecified, without bleeding | CPT/HCPCS: 99212 ==

== ENCOUNTER 2025-05-16 09:01 | Outpatient (AMB) | payer MEDICARE, SELFPAY ==
--- NOTE | 2025-05-16 09:17 | MHC.OFFVIS ---
Vital Signs 05/16/25 09:27 Height 5 ft 6 in Weight 180 lb 6 oz BMI 29.1 BP 126/59 L Blood Pressure Location Lt brachial Position Sitting Pulse 75 Intake Visit Reasons: S/P Rt brst lumpectomy w/localizer & SN bx Intake Note: This patient presents for post-op assessment status post right breast lumpectomy. Pt c/o; no changes. Horticulture Instructor Required: No Accompanied by: Family/Other Allergies atorvastatin Allergy (Verified 05/16/25 09:28) Rash erythromycin base Allergy (Verified 05/16/25 09:28) Unknown Penicillins Allergy (Verified 05/16/25 09:28) Rash rosuvastatin (From Crestor) Allergy (Verified 05/16/25 09:28) Unknown Sulfa (Sulfonamide Antibiotics) Allergy (Verified 05/16/25 09:28) Difficulty Breathing gabapentin Adverse Reaction (Severe, Verified 05/16/25 09:28) Unknown indomethacin Adverse Reaction (Verified 05/16/25 09:28) Unknown levofloxacin (From Levaquin) Adverse Reaction (Verified 05/16/25 09:28) Unknown Medication List - Last Reconciled 05/16/25 by Peterson Kang MD allopurinol 100 mg PO DAILY atenolol 25 mg PO DAILY coenzyme Q10 (CoQ-10) 100 mg PO DAILY cranberry 500 mg PO BID cyanocobalamin (vitamin B-12) 1,000 mcg sublingual DAILY duloxetine 40 mg PO BID ezetimibe 10 mg PO DAILY famotidine 20 mg PO DAILY PRN furosemide 20 mg PO DAILY PRN levothyroxine 88 mcg PO DAILY liothyronine 5 mcg PO DAILY lisinopril-hydrochlorothiazide 20-25 mg 1 tab PO DAILY magnesium oxide 400 mg PO DAILY metformin ER 500 mg PO BID nitrofurantoin monohyd/m-cryst 100 mg (Macrobid) 100 mg PO Q12H omeprazole 20 mg PO BID 30 days rosuvastatin 5 mg PO DAILY zolpidem 5 - 10 mg PO BEDTIME PRN HPI Comments Details: 85-year-old female patient returning 1 week following right breast lumpectomy with localizer and right axillary sentinel node biopsy for invasive ductal carcinoma performed on 05/04/2025. She has a prior history of a left breast cancer (DCIS) diagnosed in 1998, status post left breast lumpectomy in 1999 (Dr. Beard) with subsequent radiation therapy. She was initially treated with tamoxifen however developed a severe liver reaction and needed to be stopped. She is now presenting with a diagnostic mammogram and ultrasound performed on 03/21/2025 revealed a right breast density in the 8-9 o'clock position, 9 cm from the nipple which by ultrasound was hypoechoic measuring 11 x 11 x 13 mm and felt to be solid. Ultrasound-guided core biopsy performed at [facility] on 04/17/2025 revealed an invasive ductal carcinoma, grade 1, ER/AL positive, HER2 Rajiv negative. She is . She has no history of HRT use. She denies family history of breast cancer but has family history of colon cancer. 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 Margins were free of invasive and in-situ tumor. Three sentinel nodes and 5 additional axillary nodes are negative for metastatic disease. Tumor is ER/AL positive, HER2 Rajiv negative, Ki-67 low. Oncotype testing is pending. 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 Arthritis Fibromyalgia Surgical History History of tonsillectomy and adenoidectomy Hx of inguinal hernia repair Hx of dilation and curettage Hx of cataract extraction Hx of varicose vein ligation Hx of wisdom tooth extraction History of liver biopsy Hx of hysterectomy Hx of cholecystectomy Hx of colonoscopy History of lumpectomy of left breast History of esophagogastroduodenoscopy (EGD) Family History Father Liver cancer Sister Skin cancer Social History Household Members: Spouse Are you a primary care attendant to a significant other at home: No Do you presently have visiting nurse or other home services: No Alcohol intake: never Comment: counts correct Patient Tobacco Use Status: Never used Tobacco service: No Current occupational status: retired Review of Systems Const All systems reviewed & are unremarkable except as noted in HPI and below Physical Exam Vital Signs: Last Vital Signs Pulse 75 05/16/25 09:27 BP 126/59 L 05/16/25 09:27 BMI result Body Mass Index 29.1 Const General: no acute distress Nutritional Appearance: well nourished Orientation/consciousness: patient oriented x3 Limitations: no limitations Chest Other: Well-healed incision in the upper outer quadrant however there was an underlying hematoma palpable with surrounding ecchymosis. Ecchymosis extends below the chest and into the back. No skin necrosis or infection is identified. Chest/axillae images:  1. Incision right breast Resp Effort & Inspection: normal respiratory effort, no audible wheezes, no cough and no respiratory distress GI Inspection: Yes normal to inspection Skin Other: Ecchymosis right breast as noted above Neuro Other: Mobility Assessment: 1. 3 meter assessment time (seconds) 6 2. Gait observations: Normal balance and gait General: patient oriented x3 Extrem General: Yes no clubbing, cyanosis or edema Assessment & Plan Assessment & Plan (1) Invasive ductal carcinoma of right breast: Code(s): C50.911 - Malignant neoplasm of unspecified site of right female breast Category: Medical Plan 85-year-old female patient with a recently diagnosed invasive ductal carcinoma of the right breast, 13 mm diameter, 0 of axillary nodes with metastatic disease, ER/AL positive, HER2 Rajiv negative, Ki-67 low s/p lumpectomy and sentinel node biopsy on 05/04/2025. TNM: PTC 1 pN0. Patient did develop a hematoma postoperatively but remained stable. She is due to see Dr. Gann next week to discuss next steps. I have asked her to return approximately one-month for wound examination but is welcome to call sooner for any new concerns. Coding Level of Care Code Global (32346) Diagnoses Invasive ductal carcinoma of right breast C50.911
[2025-05-16 09:27] VITALS: BP 126/59; PULSE 75; BMI 29.1
--- OUTSIDE RECORDS SUMMARY | 2025-05-16 09:42 | XMS_ITS | Clinical Summary ---
Author Organization [facility] Address [address] [place] [id number] Phone Care Team Providers Care Captain Waiter Name Role Phone Alba Anguiano MD Primary [...] EST) SODIUM 138 133 - 146 mmol/L [facility] CHLORIDE 100 96 - 108 mmol/L [facility] POTASSIUM 3.8 3.3 - 5.1 mmol/L [facility] CO2 29 21 - 35 mmol/L [facility] BUN 18 6 - 19 mg/dL [facility] CREATININE 0.80 0.5 - 1.5 mg/dL [facility] GLUCOSE 116(H) 70 - 99 mg/dL [facility] CALCIUM 10.2 8.4 - 10.3 mg/dL [facility] EGFR 74 >59 mL/min/1.7 3m2 [facility] Comment:Estimated glomerular filtration rate calculated using the CKD-EPI refit equation. ANION GAP 13 10 - 20 mmol/L [facility] Blood 08/17/2024 2:51 PM EST 08/17/2024 2:53 PM EST Kiara Cruz PA-C LAB BLOOD ORDERABLES Final Result [facility] [address] [place] [address] from Last 3 Months or Most Recently [...] [place] REPLACEMENT Care Teams Captain Waiter Relationship Specialty Start Date End Date Alba Anguiano MD [address] [address] PCP - General 07/30/17 Additional Source Comments The information contained in this document represents components of the legal health record. It is not the complete legal health record.[facility]
== END 2025-05-16 09:45 | disposition home or self-care (01) ==
LOC: HO.HGS 09:01
PROVIDERS: PCP Internal Medicine; Visit Provider Surgery
DX: C50.911 Malignant neoplasm of unspecified site of right female breast (principal)
CPT/HCPCS: 99024

== ENCOUNTER → 2025-05-16 09:01 | Outpatient (BNVA) | payer MEDICARE, SELFPAY | PROVIDERS: PCP Internal Medicine; Visit Provider Surgery | DX: C50.911 Malignant neoplasm of unspecified site of right female breast (principal) | CPT/HCPCS: 99212 ==

== ENCOUNTER 2025-06-27 09:07 | Outpatient (AMB) | payer MEDICARE, MEDICAID, SELFPAY ==
--- NOTE | 2025-06-27 09:25 | A.OFFVIS_ITS ---
Vital Signs 06/27/25 09:46 Height 5 ft 6 in Weight 183 lb 13.848 oz BMI 29.7 BP 128/78 Blood Pressure Location Lt brachial Position Sitting Intake Visit Reasons: 1 mth s/p rt brst lumpectomy w/localizer/sn bx Intake Note: Patient is seen in office for one month follow up visit, post right breast lumpectomy. Pt c/o: seen oncologist and was is now on Letrozole, side effects swollen ankles, foggy brain, tired, and dizziness Dr Gann on 05/25/25 Enterprise Application Administrator Required: No Center Machine Operator: Center Machine Operator Present Accompanied by: Family/Other Allergies atorvastatin Allergy (Verified 06/27/25 09:46) Rash erythromycin base Allergy (Verified 06/27/25 09:46) Unknown Penicillins Allergy (Verified 06/27/25 09:46) Rash rosuvastatin (From Crestor) Allergy (Verified 06/27/25 09:46) Unknown Sulfa (Sulfonamide Antibiotics) Allergy (Verified 06/27/25 09:46) Difficulty Breathing gabapentin Adverse Reaction (Severe, Verified 06/27/25 09:46) Unknown indomethacin Adverse Reaction (Verified 06/27/25 09:46) Unknown levofloxacin (From Levaquin) Adverse Reaction (Verified 06/27/25 09:46) Unknown HPI Comments Details: 85-year-old female patient returning 6 weeks following right breast lumpectomy with localizer and right axillary sentinel node biopsy for invasive ductal carcinoma performed on 05/04/2025. She has a prior history of a left breast cancer (DCIS) diagnosed in 1998, status post left breast lumpectomy in 1999 (Dr. Beard) with subsequent radiation therapy. She was initially treated with tamoxifen however developed a severe liver reaction and needed to be stopped. She is now presenting with a diagnostic mammogram and ultrasound performed on 03/21/2025 revealed a right breast density in the 8-9 o'clock position, 9 cm from the nipple which by ultrasound was hypoechoic measuring 11 x 11 x 13 mm and felt to be solid. Ultrasound-guided core biopsy performed at [facility] on 04/17/2025 revealed an invasive ductal carcinoma, grade 1, ER/HI positive, HER2 Rajiv negative. She is . She has no history of HRT use. She denies family history of breast cancer but has family history of colon cancer. 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 Margins were free of invasive and in-situ tumor. Three sentinel nodes and 5 additional axillary nodes are negative for metastatic disease. Tumor is ER/HI positive, HER2 Rajiv negative, Ki-67 low. Oncotype was 7 indicating no benefit from chemotherapy. She continues to report soreness in the right axilla but feels the swelling has gradually decreased. She no longer notes bruising on her skin. 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 Arthritis Fibromyalgia Surgical History History of tonsillectomy and adenoidectomy Hx of inguinal hernia repair Hx of dilation and curettage Hx of cataract extraction Hx of varicose vein ligation Hx of wisdom tooth extraction History of liver biopsy Hx of hysterectomy Hx of cholecystectomy Hx of colonoscopy History of lumpectomy of left breast History of esophagogastroduodenoscopy (EGD) Family History Father Liver cancer Sister Skin cancer Social History Household Members: Spouse Are you a primary daycare teacher to a significant other at home: No Do you presently have visiting nurse or other home services: No Alcohol intake: never Comment: counts correct Patient Tobacco Use Status: Never used Tobacco service: No Current occupational status: retired Review of Systems Const All systems reviewed & are unremarkable except as noted in HPI and below Physical Exam Const General: no acute distress Nutritional Appearance: well nourished Orientation/consciousness: patient oriented x3 Limitations: no limitations Chest Other: Well-healed incision in the upper outer quadrant however there was an underlying hematoma palpable with surrounding ecchymosis. Ecchymosis extends below the chest and into the back. No skin necrosis or infection is identified. Palpable hematoma is smaller softer today. Resp Effort & Inspection: normal respiratory effort, no audible wheezes, no cough and no respiratory distress GI Inspection: Yes normal to inspection Skin Other: Ecchymosis right breast as noted above Neuro Other: Mobility Assessment: 1. 3 meter assessment time (seconds) 6 2. Gait observations: Normal balance and gait General: patient oriented x3 Extrem General: Yes no clubbing, cyanosis or edema Assessment & Plan Assessment & Plan (1) Invasive ductal carcinoma of right breast: Code(s): C50.911 - Malignant neoplasm of unspecified site of right female breast Category: Medical Plan 85-year-old female patient with a prior history of DCIS left breast now recently diagnosed with invasive ductal carcinoma of the right breast, s/p right breast lumpectomy in the upper outer quadrant with sentinel node biopsy. Pathology confirmed invasive ductal carcinoma, 13 mm diameter, 0 of 6 axillary nodes with metastatic disease, ER/HI positive, HER2 Rajiv negative, Ki-67 low, and Oncotype 7. TNM: PTC 1 pN0. Patient did develop a hematoma postoperatively but remained stable. She was placed on letrozole by Dr. Gann which he feels is making her tired. Examination today reveals her incision to be healing in the hematoma to be decreasing in size. She will follow up in 3 months for routine breast examination. She will be due for a mammogram in April 2026. Coding Level of Care Code Global (31092) Diagnoses Invasive ductal carcinoma of right breast C50.911
--- OUTSIDE RECORDS SUMMARY | 2025-06-27 09:33 | XMS_ITS | Clinical Summary ---
Author Organization [facility] Address [address] [place] [address] Care Team Providers Care Clamp Remover Name Role Phone Alba Anguiano MD Primary [...] Depression Screening 07/27/2024 COVID-19 Vaccine ( - 2024-2 6 season) 2025 Influenza Vaccine (#1) 2025 HIB [...] age to complete this topic Care Teams Clamp Remover Relationship Specialty Start Date End Date Alba Anguiano MD PCP - General Internal Medicine 11/05/21
--- OUTSIDE RECORDS SUMMARY | 2025-06-27 09:33 | XMS_ITS | Clinical Summary ---
Author Organization [facility] Address [address] [facility] [address] [place] [phone] Phone Care Team Providers Care Swaging Machine Operator Name Role Phone Alba Anguiano MD [...] Date/Time Associated Diagnosis Comments BASIC METABOLIC PANEL (BMP) STAT 08/17/2024 2:51 PM EST from Last 3 Months or Most Recently Relevant to Health Maintenance Results * (ABNORMAL) Basic metabolic panel (08/17/2024 2:51 PM EST) SODIUM 138 133 - 146 mmol/L [facility] CHLORIDE 100 96 - 108 mmol/L [facility] POTASSIUM 3.8 3.3 - 5.1 mmol/L [facility] CO2 29 21 - 35 mmol/L [facility] BUN 18 6 - 19 mg/dL [facility] CREATININE 0.80 0.5 - 1.5 mg/dL [facility] GLUCOSE 116(H) 70 - 99 mg/dL [facility] CALCIUM 10.2 8.4 - 10.3 mg/dL [facility] EGFR 74 >59 mL/min/1.7 3m2 [facility] Comment:Estimated glomerular filtration rate calculated using the CKD-EPI refit equation. ANION GAP 13 10 - 20 mmol/L [facility] Blood 08/17/2024 2:51 PM EST 08/17/2024 2:53 PM EST Kiara Cruz PA-C LAB BLOOD BKR ORDERAB LES Final Result Performing Organization Address City/State/[facility] Co de Phone Number [address] [phone] from Last 3 Months or Most Recently Relevant to Health Maintenance Insurance [facility] MEDICARE PPO BLUE REPLACEMENT [facility] MEDICARE PPO BLUE REPLACEMENT [facility] MEDICARE PPO BLUE REPLACEMENT [place] BLUE REPLACEMENT Care Teams Swaging Machine Operator Relationship Specialty Start Date End Date Alba Anguiano MD [address] [id number] PCP - General 07/30/17 Additional Source Comments The information contained in this document represents components of the legal health record. It is not the complete legal health record.[facility]
[2025-06-27 09:46] VITALS: BP 128/78; BMI 29.7
== END 2025-06-27 09:51 | disposition home or self-care (01) ==
LOC: HO.HGS 09:07
PROVIDERS: PCP Internal Medicine; Visit Provider Surgery
DX: C50.911 Malignant neoplasm of unspecified site of right female breast (principal)
CPT/HCPCS: 99024

== ENCOUNTER → 2025-06-27 09:07 | Outpatient (BNVA) | payer MEDICARE, MEDICAID, SELFPAY | PROVIDERS: PCP Internal Medicine; Visit Provider Surgery | DX: C50.411 Malignant neoplasm of upper-outer quadrant of right female breast (principal); L76.32 Postprocedural hematoma of skin and subcutaneous tissue following other procedure; Z90.11 Acquired absence of right breast and nipple; Z86.000 Personal history of in-situ neoplasm of breast; Z17.0 Estrogen receptor positive status [ER+]; Z17.21 Progesterone receptor positive status; Z17.32 Human epidermal growth factor receptor 2 negative status | CPT/HCPCS: 99212 ==